=== PATIENT | male | born 1955 ===

== ENCOUNTER 2023-10-22 15:17 | Outpatient (REF) | payer OTHER, SELFPAY ==
[2023-10-22 15:30] LABS: Hemoglobin A1C 5.7 % (<5.7)
[2023-10-22 16:12] LABS: ALT 22 U/L (16-63); AST 20 U/L (15-37); Albumin 3.8 g/dL (3.4-5.0); Alkaline Phosphatase 57 U/L (46-116); Anion Gap 8.2 mmol/L (3-11); BUN 17 mg/dL (7-18); Bilirubin, Total 0.4 mg/dL (0.2-1.0); CO2 26.8 mmol/L (21.0-32.0); CREATININE 1.2 mg/dL (0.70-1.30); Calcium 8.6 mg/dL (8.5-10.1); Calculated LDL 155 mg/dL (<100); Chloride 106 mmol/L (98-107); Cholesterol 231 mg/dL (<200); Glucose 98 mg/dL (74-106); HDL Cholesterol 32 mg/dL (40-60); Potassium 4.4 mmol/L (3.5-5.1); Sodium 141 mmol/L (136-145); TSH 6.61 uIU/Ml (0.36-3.74); Total Protein 7.4 g/dL (6.4-8.2); Triglyceride 220 mg/dL (<150)
== END 2023-10-22 15:18 | disposition home or self-care (01) ==
LOC: NCHCN 15:17
PROVIDERS: Visit Provider Family Medicine
DX: R89.1 Abnormal level of hormones in specimens from other organs, systems and tissues (principal); Z12.5 Encounter for screening for malignant neoplasm of prostate; R73.03 Prediabetes; Z13.220 Encounter for screening for lipoid disorders
CPT/HCPCS: 80053; 80061; 84153; 83036; 84439; 84443

== ENCOUNTER 2024-04-13 08:40 | Outpatient (REF) | payer MEDICARE, SELFPAY ==
--- OUTSIDE RECORDS SUMMARY | 2024-04-13 08:45 | XMS_ITS | Encounter Summary ---
Author Organization [facility] Address [address] [place] [address] Care Team Providers Care Co Founder And Chief Strategy Officer Name Role Phone Cassidy Pablo MD Primary Care Provider [phone] Reason for Visit * Reason Onset Date Comments Appointment Related 04/23/2021 Elevated PSA 04/23/2021 8.3 Encounter Details Date Type Department Care Team (Late st Contact Info) Description 04/23/2021 Telephone [facility] Urology - [facility] [address], [place] [id number] Scar Osorio MD [address] [place] [address], [address] [place] [address] Appointment Related; Elevated PSA (8.3) Social History Tobacco Use Types Packs/Day Years Used Date Smoking Tobacco: Never Smokeless Tobacco: Former Chew Quit: 2002 Alcohol Use Standard Drinks/Week Comments No 0 (1 standard drink = 0.6 oz pur e alcohol) quit Interpersonal Safety Answer Date Record ed Physically Hurt Never 02/06/2020 Verbally Threaten Not on file 02/06/2020 Sex and Gender Information Value Date Recorded Sex Assigned at Not on file Gender Identity Male 08/27/2019 11:54 EST Sexual Orientation Not on file documented as of this encounter Functional Status Functional Status Response Date of Assess ment Because of a physical, menta l, or emotional condition, does this person have difficulty doing errands alone such as visiting a doctor's office or shopping? No 11/10/2017 Cognitive Status Response Date of Assessm ent Because of a physical, menta l, or emotional condition, does this person have serious difficulty concentrating, remembering, or making decisions? No 11/10/2017 documented as of this encounter Miscellaneous Notes * Telephone Encounter - Mareclla Adams - 04/23/2021 1240 EDT Spoke with pt, per Dr. Osorio, scheduled Telemed f/u to discuss rising PSA. * Telephone Encounter - Dat Kenyon - 04/23/2021 1132 EDT Patient called because he got his PSA tested and another provider advised he get an appt with Dr Osorio. Last seen by him Aug 2019. Please call back to schedule. documented in this encounter Plan of Treatment Upcoming Encounters Date Type Department Care Team (Late st Contact Info) Description 04/22/2024 8:10 EDT Appointment [facility] Endoscopy - [facility] [address] [place] [address] Zak Solorzano MD [address] [facility], [address] [place] [phone] documented as of this encounter Visit Diagnoses Not on filedocumented in this encounter Care Teams Co Founder And Chief Strategy Officer Relationship Specialty Start Date End Date Cassidy Pablo MD [address] [place] [address] [address] [place] [phone] PCP - General 12/21/14 05/28/21 documented as of this encounter
--- OUTSIDE RECORDS SUMMARY | 2024-04-13 08:45 | XMS_ITS | Encounter Summary ---
Author Organization [facility] Address [address] [place] [address] Care Team Providers Care Towel Distributor Name Role Phone Unknown, Provider Primary Care Provider Reason for Visit * Reason Onset Date Comments Medications Refill 2023 Encounter Details Date Type Department Care Team (Late st Contact Info) Description 2023 Refill [facility] Ophthalmology - [address] [address] Blake Doran MD [address] [place] [address], [address] [place] [address] Medications Refill Social History Tobacco Use Types Packs/Day Years [...] No 11/10/2017 documented as of this encounter Ordered Prescriptions Prescription Sig Dispensed Refills Start Date End Da te timolol (TIMOPTIC) 0.5 % ophthalmic solution Place 1 Drop into both eyes 2 times daily. 30 mL 3 2023 documented in this encounter Plan of Treatment Upcoming Encounters Date Type Department Care Team (Late st Contact Info) Description 04/22/2024 8:10 EDT Appointment [facility] Endoscopy - [address] [phone] Zak Solorzano MD [address] [facility], [address] [place] [address] documented as of this encounter Visit Diagnoses Not on filedocumented in this encounter Discontinued Medications Medication Sig Discontinue Reason Start Date End Da te timolol (TIMOPTIC) 0.5 % ophthalmic solution Place 1 Drop into both eyes 2 times daily. Reorder 04/08/2023 2023 documented as of this encounter Care Teams Towel Distributor Relationship Specialty Start Date End Date Unknown, Provider, PCP - General 02/27/23 documented as of this encounter
--- OUTSIDE RECORDS SUMMARY | 2024-04-13 08:45 | XMS_ITS | Encounter Summary ---
Author Organization [facility] Address [address] [place] [address] Care Team Providers Care Supervisor Opening And Picking Name Role Phone Cassidy Pablo MD Primary Care Provider [phone] Reason for Visit * Reason Onset Date Comments Appointment Related 04/30/2021 TRUS BX Encounter Details Date Type Department Care Team (Late st Contact Info) Description 04/30/[address] [facility] Urology - [address] [phone] Scar Osorio MD [address] [facility], [address] [place] [address] Appointment Related (TRUS BX) Social History Tobacco Use Types Packs/Day Years [...] encounter Miscellaneous Notes * Telephone Encounter - Marcella Adams - 04/30/2021 1020 EDT Left message for pt that Dr. Osorio has ordered a TRUS BX and it's scheduled for 06/13 at 9:30 am, Telemed BXR on 06/25 @ 2pm. Mailed instructions to pt's home. documented in this encounter Plan of Treatment Upcoming Encounters Date Type Department Care Team (Late st Contact Info) Description 04/22/2024 8:10 EDT Appointment [facility] Endoscopy - [address] [phone] Zak Solorzano MD [address] [facility], [address] [place] [address] documented as of this encounter Visit Diagnoses Not on filedocumented in this encounter Care Teams Supervisor Opening And Picking Relationship Specialty Start Date End Date Cassidy Pablo MD [address] [place] [address] [address] [place] [phone] PCP - General 12/21/14 05/28/21 documented as of this encounter
--- OUTSIDE RECORDS SUMMARY | 2024-04-13 08:45 | XMS_ITS | Continuity of Care Document ---
Author Organization [facility] Address [address] [place] [address] Phone Care Team Providers Care Special Education Paraeducator Name Role Phone Unavailable Unavailable Unavailable Allergies, Adverse Reactions, Alerts Substance Reaction Status Criticality Uvtvmgo-WYY-RsV Reductase Inhibitors musculoskeletal p ain Active No Information Sulfa (Sulfonamide Antibiotics) osmin salcedo syndro me Active No Information Medications Medication Instructions Dosage Effective Dates (start - stop) Status Comments lorazepam 0.5 mg tablet Take one tab only as needed at night. Try not to take it every day. Use sporadically - Active sildenafil 50 mg tablet take 1 tablet by oral route every day as needed approximately 1 hour before sexual activity 50 MG - Active hydroxyzine HCl 10 mg tablet take 1 - 2 by Oral route every day as needed for insomnia 1-2 - Active Betimol 0.25 % eye drops instill 1 drop by ophthalmic route 2 times every day into affected eye(s) 1.00 drop - Active Procedures Procedure Date Immuniz Admin; 1/combo Vacc/to 22 Zoster SHINGRIX Offic/outpt E&m Estab Low-mod 2 Patient Intake Completed MTP-Adp-Fhsd <1 Year Bitewings-Four Films Periodic Oral Examination Caries Risk-Moderate Recare Needs Only Prophylaxis Adult Treatment Plan Completed EDR Documentation Approval Telemed OFFICE/OUTPATIENT VISIT, EST 992 12 Patient Intake Completed FJI-Ljd-Zrso <1 Year Intraoral Periapical-First Film 021 Periapical Radiograph-No Charge 021 Bitewing Radiograph-No Charge Limited Oral Evaluation-Problem Focused Urgent Care Routine Venipuncture Thyroid Stim Hormone Lipid Panel URINALYSIS, AUTO, W/O SCOPE Offic/outpt E&m Estab 5 Min Preven Meds E&m Estab Pt; 40-6 Routine Venipuncture Comprehen Metabolic Panel Complete Cbc, Automated Thyroid Stim Hormone Psa, total screening Telemed OFFICE/OUTPATIENT VISIT, EST 992 12 Patient Intake Completed HTW-Cvj-Aulo <1 Year Perio Charting Prophylaxis Adult Treatment Plan Completed Patient Intake Completed [place] Delivery Treatment Plan Completed Pre-Cementation Bitewing Radiograph-No C harge EDR Documentation Approval Patient Intake Completed [place]-Porcelain/Ceramic Core Build Up Including Any Pins 2019 Treatment Plan In Progress Final Impression(s) For [place]/Bridge May Treatment Plan In Progress EDR Documentation Approval Patient Intake Completed Limited Oral Evaluation-Problem Focused Urgent Care Intraoral Periapical-First Film 020 Bitewing Radiograph-No Charge 0 EDR Documentation Approval Patient Intake Completed Bitewings-Four Films Periodic Oral Examination Recare Needs Only EDR Documentation Approval Offic/outpt E&m Estab Low-mod 0 Duplicate Encounter URINALYSIS, AUTO, W/O SCOPE Cult Bacterial Urin; Dariel [place] 20 Routine Venipuncture Prostate Spec Antig; Tot Routine Venipuncture Complete Cbc, Automated Thyroid Stim Hormone Psa, total screening Offic/outpt E&m Estab Low-mod 9 Basic Metabolic Panel [place] Delivery Treatment Plan Completed Patient Intake Completed EDR Documentation Approval Patient Intake Completed Re-Take Impression For A [place]/Bridge Au Treatment Plan In Progress EDR Documentation Approval Patient Intake Completed Final Impression(s) For [place]/Bridge Jan Treatment Plan In Progress Resin-Based Composite - 3 Surfaces, Post erior Treatment Plan In Progress EDR Documentation Approval [place]-Porcelain/Ceramic Patient Intake Completed Prophylaxis Adult Treatment Plan In Progress Perio Charting Patient Intake Completed Full Mouth Series Of Radiographs 2017 Comprehensive Oral Evaluation 8 Caries Risk-Low Excluded From Sealant Measure 8 Treatment Plan Initiated EDR Documentation Approval Patient Intake Completed Intraoral Periapical-First Film -2 018 Limited Oral Evaluation-Problem Focused Urgent Care Resin-Based Composite Three Surfaces, An terior Urgent Care EDR Documentation Approval Preven Meds E&m Estab Pt; 40-6 18 Destrct Premalig Lesion Immuniz Admin; 1/combo Vacc/to 18 Psa, total screening Routine Venipuncture Glu; Dariel Lipid Panel Zoster State Supplied Noninvas Oximetry-o2 Sat; 1 De 17 Offic/outpt E&m Estab Low-mod 7 Preven Meds E&m Estab Pt; 40-6 16 Creatinine; Bld Lipid Panel Urea Nitro; Dariel Glu; Dariel Drug Screen, Chromatographic Offic/outpt E&m Estab Low-mod 6 Offic/outpt E&m New Mod Sever 5 Immuniz Admin; 1/combo Vacc/to 15 TDAP VACCINE >7 IM Advance Directives Directive Yes / No Effective Date File Name No Information Encounters Encounter Description Practice Location Reason(s) For Visit Diagnoses Date Provider Providers Copied on Encounter [address], [id number], tel:[phone] [facility] No Information 4 [address], [id number], tel:[phone] [facility] No Information 3 Vamsi Rod. [address] [place] [address], [id number], . tel:[phone] Offic/outpt E&m Estab Low-mod [address], [id number], tel:[phone] [facility] covid (chief complaint)vac cines (chief complaint)inf ormation (chief complaint) Male erectile dysfunction, unspecifiedEn counter for immunization 2 Vamsi Rod. [address] [place] [address], [facility], . tel:[phone] [facility] , [address] [place] [address], [id number], tel:[phone] [facility] No Information 2 Analisa Melgar. [address] [place] [address], [address] [place] [address], . tel:[phone], [address] [place] [address], tel:[phone] [facility] No Information 2 Vamsi Rod. [address] [place] [address], [facility], . tel:[phone], [address] [place] [address], tel:[phone] [facility] telemedicine (chief complaint)anx iety (chief complaint) Counseling, unspecifiedSi tuational anxiety 2 Vamsi Rod. [address] [place] [address], [facility], . tel:[phone], [address] [place] [address], tel:[phone] [facility] No Information 1 Vamsi Rod. [address] [place] [address], [facility], . tel:[phone] [place] [address], [address] [place] [address], tel:[phone] [facility] No Information 1 Albania Lozano. [address] [place] [address], [address] [place] [address], . tel:[phone], [address] [place] [address], tel:[phone] [facility] No Information 1 No Information Offic/outpt E&m Estab [address], [id number], tel:[phone] [facility] Nurse visit (chief complaint) Dysuria 1 Vamsi Rod. [address] [place] [address], [facility], . tel:[phone], [address] [place] [address], tel:[phone] [facility] No Information 1 Vamsi Rod. [address] [place] [address], [facility], [place]. tel:[phone] Preven Meds E&m Estab Pt; 40-[address], [address] [place] [address], tel:[phone] [facility] preventive exam (chief complaint) Encounter for general adult medical examination without abnormal findingsThyro id diseaseElevat ed PSA 1 Vamsi Rod. [address] [place] [address], [facility], . tel:[phone], [address] [place] [address], tel:[phone] [facility] No Information 1 No Information [address], [address] [place] [address], tel:[phone] [facility] Screening for hyperlipidemi aScreening, anemia, deficiency, ironProstate cancer screeningSing le functional kidney 1 Vamsi Rod. [address] [place] [address], [facility], [place]. tel:[phone], [address] [place] [address], tel:[phone] [facility] Follow Up of Anxiety (chief complaint) Situational anxietyCounse ling, unspecified 1 Vamsi Rod. [address] [place] [address], [facility], [place]. tel:[phone] [facility] , [address] [place] [address], [address] [place] [address], tel:[phone] [facility] No Information 1 Hollie Sheldon. [address] [place] [address], [id number], . tel:[phone], [address] [place] [address], tel:[phone] [facility] No Information 0 Albania Lozano. [address] [place] [address], [id number], [place]. tel:[phone], [address] [place] [address], tel:[phone] [facility] No Information 0 Albania Lozano. [address] [place] [address], [address] [place] [address], [place]. tel:[phone], [address] [place] [address], tel:[phone] [facility] No Information 0 Paresh Bryant. [address] [place] [address], [id number], [place]. tel:[phone], [address] [place] [address], tel:[phone] [facility] No Information 0 Albania Lozano. [address] [place] [address], [address] [place] [address], [place]. tel:[phone] Offic/outpt E&m Estab Low-mod [address], [id number], tel:[phone] [facility] Establish with PCP (chief complaint)Ski n lesion (chief complaint) Benign skin lesion of cheekScreenin g for hyperlipidemi aThyroid disorder screeningScre ening, anemia, deficiency, ironSide effect of medication 0 Vamsi Rod. [address] [place] [address], [id number], [place]. tel:[phone], [id number], [place] tel:[phone] [facility] No Information [address] [facility] , [address] [place] [address], [id number], tel:[phone] [facility] No Information [address] [facility] , [address] [place] [address], [id number], [place] tel:[phone] [facility] No Information [address] [facility] , [address] [place] [address], [id number], tel:[phone] [facility] No Information 9 No Information Offic/outpt E&m Estab Low-mod [address], [id number], [place] tel:[phone] [facility] Palpitations (chief complaint)Sin us symptoms (acute) (chief complaint)Eye problems (chief complaint) PalpitationsF amily history of glaucomaAcqui red absence of kidneyFamily history of prostate cancerHyperli pidemia, unspecified hyperlipidemi a typeAbnormal thyroid blood test 9 Samy Benjamin. [address] [place] [address], [id number], [place]. tel:[phone], [id number], [place] tel:[phone] [facility] No Information 8 Dangelo Wells. [address] [place] [address], [id number], [place]. tel:[phone], [id number], [place] tel:[phone] [facility] No Information 8 Dangelo Wells. [address] [place] [address], [facility], . tel:[phone], [address] [place] [address], tel:[phone] [facility] No Information 8 Albania Lozano. [address] [place] [address], [address] [place] [address], . tel:[phone], [address] [place] [address], tel:[phone] [facility] No Information 8 Bib Peyton. [address] [place] [address], [address] [place] [address], . tel:[phone], [address] [place] [address], tel:[phone] [facility] No Information 8 Albania Lozano. [address] [place] [address], [address] [place] [address], . tel:[phone], [address] [place] [address], tel:[phone] [facility] No Information 8 Albania Lozano. [address] [place] [address], [address] [place] [address], . tel:[phone] Preven Meds E&m Estab Pt; 40-[address], [address] [place] [address], tel:[phone] [facility] preventive exam (chief complaint)ski n lesion (chief complaint)ins omnia (chief complaint)Mack tigo (chief complaint) Encntr for general adult medical exam w/o abnormal findingsFamil y history of prostate cancerActinic keratosis 8 Samy Benjamin. [address] [place] [address], [facility], . tel:[phone] Offic/outpt E&m [facility] , [address] [place] [address], [id number], tel:[phone] [facility] Chest pain (chief complaint) Chest painPalpitati ons 7 No Information Preven Meds E&m Estab Pt; 40-6 [facility] , [address] [place] [address], [id number], tel:[phone] [facility] preventive exam (chief complaint) Encntr for general adult medical exam w/o abnormal findingsHyper lipidemiaEnco unter for screening for diabetes mellitusAcqui red absence of kidneyEncount er for screening for infections with a predominantly sexual mode of transmissionA nxiety disorder, unspecified 6 Samy Benjamin. [address] [place] [address], [facility], . tel:[phone] Offic[facility]outpt E[facility]m [facility] , [address] [place] [address], [address] [place] [address], tel:[phone] [facility] Anxiety (chief complaint)Ere ctile Dysfunction (chief complaint) Encounter for therapeutic drug level monitoringAnx iety disorder, unspecifiedIn somniaMale erectile dysfunction, unspecified 6 Danika Monreal. [address] [place] [address], [facility], . tel:[phone] Offic/outpt E&m [facility] , [address] [place] [address], [id number], tel:[phone] [facility] Establish Care (chief complaint)Ear ache (chief complaint) Otalgia 5 No Information Family History Family Member Type Diagnosis Age At Onset Paternal grandfather Problem (finding) prostate cancer (Cause Of ) 72 Immunizations Vaccine Date Status Comments SHINGRIX administered Source: New Imm unization Record Pfizer Covid-19 administered Source: Othe r Provider Pfizer Covid-19 administered Source: Othe r Provider Influenza, injectable, quadrivalent, preservative free, split virus, 0.5 mL dosage, Fluarix Quad administered Note: [facility] ; Source: Other Provider Zoster administered Source: New Imm unization Record Tdap administered Source: [facility] Record Payers Payer name Insurance type Covered libertarian ID Authoriza tion(s) [facility] [id number] [facility] BCBS Standard Plan BL [id number] [facility] BCBS Standard Plan BL [id number] BCBS BL [id number] Social History Type Description Quantity Date Captured Comments Sex Male Smoking Status No Information Sexual Orientation Straight or heterosexual Gender Identity Male Chief Complaint And Reason For Visit No Information Reason For Referral Reason For Referral No Information Plan Of Treatment Date Type Action Status Goal FOBT. Due on due Goal BMI counseling d ocumented in Health Promotion Plan. Due on due Goal Depression screening. Due on due Goal ASCVD 10 year risk. Due on due Goal Annual PE. Due on due Goal HEPATITIS C AB TEST due Goal Zoster vaccine (1st) due Goal HIV-1 AG W/HIV-1 & HIV-2 AB due Goal Zoster vaccine (2nd) due Goal PCV13. Due on du e Goal TSH. Due on due Goal Colonoscopy. Due on 024 due Goal INFLUENZA. Due on due Goal Diabetes Screening. Due on due Goal Chest CT WITHOUT Contrast. Due on due Goal Lipid Panel. Due on 026 due Goal Prostate Spec An tig; Tot. Due on due Goal Colonoscopy. Due on due Goal Annual PE. Due on 3 due Goal Depression screening. Due on due Goal Colorectal cance r screen, stool DNA QuARTS with hemoglobin KAYDEN. Due on due Goal HEPATITIS C AB TEST due Goal INFLUENZA. Due on [address] WITHOUT Contrast. Due on due Goal HIV-1 AG W/HIV-1 & HIV-2 AB due Goal Zoster vaccine (2nd) due Goal PSA. Due on due Goal Zoster vaccine () due Goal Diabetes Screening. Due on due Goal BMI counseling d ocumented in Health Promotion Plan. Due on due Goal TSH. Due on due Goal ThinPrep Pap w/ HPV. Due on due Goal Lipid Panel. Due on due Goal Colonoscopy. Due on due Goal Depression screening. Due on due Goal Zoster vaccine (1st) due Goal BMI counseling d ocumented in Health Promotion Plan. Due on due Goal Diabetes Screening. Due on due Goal INFLUENZA. Due on 0 due Goal HEPATITIS C AB TEST due Goal Prostate Spec An tig; Tot. Due on due Goal HIV-1 AG W/HIV-1 & HIV-2 AB due Goal Zoster vaccine (2nd). Due on due Goal Chest CT WITHOUT Contrast. Due on due Goal Colorectal cance r screen, stool DNA QuARTS with hemoglobin KAYDEN. Due on due Goal PSA. Due on due Goal Annual PE. Due on 3 due Goal TSH. Due on due Goal ThinPrep Pap w/ HPV. Due on due Goal INFLUENZA. Due on 0 due Goal Colorectal cance r screen, stool DNA QuARTS with hemoglobin KAYDEN. Due on due Goal Zoster vaccine (). Due on due Goal Depression screening. Due on due Goal Annual PE. Due on [address] WITHOUT Contrast. Due on due Goal Colonoscopy. Due on 024 due Goal PSA. Due on due Goal Diabetes Screening. Due on due Goal HIV-1 AG W/HIV-1 & HIV-2 AB due Goal TSH. Due on due Goal ThinPrep Pap w/ HPV. Due on due Goal Prostate Spec An tig; Tot. Due on due Goal BMI counseling d ocumented in Health Promotion Plan. Due on due Goal Zoster vaccine (1st) due Goal HEPATITIS C AB TEST due Goal Lipid Panel. Due on 026 due Goal Lipid Panel. Due on 023 due Goal Annual PE. Due on 3 due Goal Diabetes Screening. Due on due Goal Chest CT WITHOUT Contrast. Due on due Goal BMI counseling d ocumented in Health Promotion Plan. Due on due Goal Colorectal cance r screen, stool DNA QuARTS with hemoglobin KAYDEN. Due on due Goal Zoster vaccine (2nd). Due on due Goal Zoster vaccine () due Goal HIV-1 AG W/HIV-1 & HIV-2 AB due Goal HEPATITIS C AB TEST due Goal TSH. Due on due Goal ThinPrep Pap w/ HPV. Due on due Goal Depression screening. Due on due Goal PSA. Due on due Goal Colonoscopy. Due on 024 due Goal INFLUENZA. Due on 0 due Goal Prostate Spec An tig; Tot. Due on due Goal Lipid Panel. Due on 023 due Goal HIV-1 AG W/HIV-1 & HIV-2 AB due Goal Zoster vaccine (1st) due Goal BMI counseling d ocumented in Health Promotion Plan. Due on due Goal Depression screening. Due on due Goal Prostate Spec An tig; Tot. Due on due Goal Diabetes Screening. Due on due Goal Colorectal cance r screen, stool DNA QuARTS with hemoglobin KAYDEN. Due on due Goal Zoster vaccine (2nd). Due on due Goal Annual PE. Due on 3 due Goal PSA. Due on due Goal Chest CT WITHOUT Contrast. Due on due Goal Colonoscopy. Due on 024 due Goal HEPATITIS C AB TEST due Goal TSH. Due on due Goal ThinPrep Pap w/ HPV. Due on due Goal INFLUENZA. Due on 0 due Goal HIV-1 AG W/HIV-1 & HIV-2 AB due Goal ThinPrep Pap w/ HPV. Due on due Goal Lipid Panel. Due on 023 due Goal Diabetes Screening. Due on due Goal Zoster vaccine (). Due on due Goal INFLUENZA. Due on 0 due Goal Colorectal cance r screen, stool DNA QuARTS with hemoglobin KAYDEN. Due on due Goal Depression screening. Due on due Goal Colonoscopy. Due on 024 due Goal Prostate Spec An tig; Tot. Due on due Goal HEPATITIS C AB TEST due Goal PSA. Due on due Goal Zoster vaccine (1st) due Goal TSH. Due on due Goal Annual PE. Due on [address] WITHOUT Contrast. Due on due Goal BMI counseling d ocumented in Health Promotion Plan. Due on due Goal PSA. Due on due Goal Colonoscopy. Due on 024 due Goal INFLUENZA. Due on 0 due Goal TSH. Due on due Goal ThinPrep Pap w/ HPV. Due on due Goal Zoster vaccine (2nd). Due on due Goal Colorectal cance r screen, stool DNA QuARTS with hemoglobin KAYDEN. Due on due Goal Diabetes Screening. Due on due Goal Depression screening. Due on due Goal Chest CT WITHOUT Contrast. Due on due Goal Prostate Spec An tig; Tot. Due on due Goal HIV-1 AG W/HIV-1 & HIV-2 AB due Goal Annual PE. Due on 1 due Goal HEPATITIS C AB TEST due Goal BMI counseling d ocumented in Health Promotion Plan. Due on due Goal Zoster vaccine (1st) due Goal Lipid Panel. Due on 023 due Goal ThinPrep Pap w/ HPV. Due on due Goal INFLUENZA. Due on 0 due Goal Colonoscopy. Due on 024 due Goal HIV-1 AG W/HIV-1 & HIV-2 AB due Goal Depression screening. Due on due Goal Annual PE. Due on 1 due Goal Colorectal cance r screen, stool DNA QuARTS with hemoglobin KAYDEN. Due on due Goal Chest CT WITHOUT Contrast. Due on due Goal Zoster vaccine (2nd). Due on due Goal BMI counseling d ocumented in Health Promotion Plan. Due on due Goal Diabetes Screening. Due on due Goal HEPATITIS C AB TEST due Goal Zoster vaccine (1st) due Goal BMI counseling d ocumented in Health Promotion Plan. Due on due Goal HEPATITIS C AB TEST due Goal Chest CT WITHOUT Contrast. Due on due Goal Depression screening. Due on due Goal Zoster vaccine (). Due on due Goal HIV-1 AG W/HIV-1 & HIV-2 AB due Goal Prostate Spec An tig; Tot. Due on due Goal Zoster vaccine () due Goal Colonoscopy. Due on 024 due Goal Diabetes Screening. Due on due Goal TSH. Due on due Goal ThinPrep Pap w/ HPV. Due on due Goal Lipid Panel. Due on 023 due Goal Colorectal cance r screen, stool DNA QuARTS with hemoglobin KAYDEN. Due on due Goal PSA. Due on due Goal Annual PE. Due on 1 due Goal TSH. Due on due Goal Chest CT WITHOUT Contrast. Due on due Goal BMI counseling d ocumented in Health Promotion Plan. Due on due Goal HEPATITIS C AB TEST due Goal Diabetes Screening. Due on due Goal Colonoscopy. Due on due Goal Prostate Spec An tig; Tot. Due on due Goal Annual PE. Due on 0 due Goal HIV-1 AG W/HIV-1 & HIV-2 AB due Goal PSA. Due on due Goal ThinPrep Pap w/ HPV. Due on due Goal Lipid Panel. Due on due Goal Colorectal cance r screen, stool DNA QuARTS with hemoglobin KAYDEN. Due on due Goal Depression screening. Due on due Goal Prostate Spec An tig; Tot. Due on due Goal Annual PE. Due on 0 due Goal Colonoscopy. Due on due Goal HIV-1 AG W/HIV-1 & HIV-2 AB due Goal Depression screening. Due on due Goal CT low dose, roxie g cancer screen. Due on due Goal Chest CT WITHOUT Contrast. Due on due Goal ThinPrep Pap w/ HPV. Due on due Goal Diabetes Screening. Due on due Goal PSA. Due on due Goal BMI counseling d ocumented in Health Promotion Plan. Due on due Goal Colorectal cance r screen, stool DNA QuARTS with hemoglobin KAYDEN. Due on due Goal Lipid Panel. Due on due Goal HEPATITIS C AB TEST due Goal Annual PE. Due on 0 due Goal Glu; Dariel. Due on 2 due Goal HEPATITIS C AB TEST due Goal HIV-1 AG W/HIV-1 & HIV-2 AB. Due on due Goal Chlamydia/GC Amp lification. Due on due Goal Lipid Panel. Due on 023 due Goal GLYCOSYLATED HEM OGLOBIN TEST. Due on due Goal Colonoscopy,. Due on 2018 due Goal Influenza virus vaccine,trivalent, split virus, for use in individuals 3 years of age and above,. Due on due Goal Influenza virus vaccine, quadrivalent, split virus, preservative free, when administered to individu. Due on due Goal Chest CT WITHOUT Contrast. Due on due Goal Chlamydia/GC Amp lification. Due on due Goal HIV-1 AG W/HIV-1 & HIV-2 AB. Due on due Goal HEPATITIS C AB TEST due Goal Influenza virus vaccine,trivalent, split virus, for use in individuals 3 years of age and above,. Due on due Goal Influenza virus vaccine, trivalent, split virus, preservative free. Due on due Goal Influenza virus vaccine, quadrivalent, split virus, preservative free, when administered to individu. Due on due Goal Annual PE. Due on 0 due Goal HEPATITIS C AB TEST. Due on due Goal GLYCOSYLATED HEM OGLOBIN TEST. Due on due Goal HIV-1 AG W/HIV-1 & HIV-2 AB. Due on due Goal Influenza virus vaccine, quadrivalent, split virus, preservative free, when administered to individu. Due on due Goal Chest CT WITHOUT Contrast. Due on due Goal Chlamydia/GC Amp lification. Due on due Goal Annual PE. Due on 7 due Goal Influenza virus vaccine,trivalent, split virus, for use in individuals 3 years of age and above,. Due on due Referral Ordered: Holter Monitor Appointment date/timeframe: 09/17/2018 ordered Referral Ordered: referred to Gastroenterology (related to [facility] for general adult medical exam w/o abnormal findings) ordered Future Order: Lab Order PSA Screen ([id number]) , Sent on: Sent Future Order: Lab Order Urine dr ug screen (200), Sent on: Sent Future Order: Lab Order TSH ([id number]), Sched uled for: Ordered Future Order: Lab Order Lipid pa keira, fasting (100), Scheduled for: Ordered Future Order: Lab Order PSA ([id number]), Sched uled for: Ordered History Of Present Illness Encounter Date Complaint History Of Prese nt Illness information (comments) Comments: pT is here after he called requesting refill for viagra. He was told that he needs to be seen to check his bp since he has not been here for about 6 months. Pt is feeling well. Denies any chest pain, headache or sob. No h/o covidNo h/o HTN. information pt received a ph one call stating that he is required to come into the facility twice a year, pt would not tell me who called him or for what reason but is a little confused on why he needs to be seen.Latin Teacher explain it is possible about the controlled substance and he declined it is for that reason covid pt had covid anila k in October and is wondering if he is required to get the second booster vaccines pt would like to know if he is up to date on his vaccines anxiety (comments) Comments: Pt states that he did not request lorazepam this month. No refills. he thinks he has in the computer. 56 tabs right now. Pt is not asking the medication. Pt did not request the medication. He was seen by eye doctor ad he has glaucoma. Using He is not tkaing the med everyday but he got in the mail another RX. He has home delivery. anxiety There is continu ation of initial symptoms. telemedicine THIS PATIENT AND /OR GUARDIAN EXPRESSED INFORMED CONSENT TO THIS CODING TEAM LEAD, PRIOR TO INITIATING THIS TELEMEDICINE ENCOUNTER.THE LIMITATIONS OF TELEMEDICINE MODALITY, AND LIKELY BENEFITS OF IN-PERSON MEDICAL APPOINTMENT VS TELEMEDICINE APPOINTMENTS WERE DISCUSSED WITH PATIENT AND/OR GUARDIANTHE PATIENT AND/OR GUARDIAN EXPRESS UNDERSTANDING OF THE ABOVE, AND ARE DESIROUS OF THIS TELEMEDICINE APPOINTMENT TODAY. DOCUMENTATION INCLUDED ABOVE PER [place] BILL S.50. Nurse visit Pt c/o dysuria. No blood in the urine. Would like to do UA. preventive exam Men's preventive visit. Patient is on a balanced diet. Marital status: . Concern(s)/Requests Detail: Colonoscopy 5 yrs ago. Relevant history is negative for tobacco use, passive smoke exposure. The client is a former alcohol user. preventive exam (comments) Comme nts: Pt denies alcohol. No smoking tobacco. Pt has been in remission for many years.He works as a contractor.Stress right now. Mother living with him start with dementia. Problems with sleep.requesting refills on viagra and lorazepam.Denies any acute issues.denies urinary symptoms. Complete covid-19 vaccine. Follow Up of Anxiety (comments) Patient got Covid-19 vaccine. His mother is 87 y old. She become increasingly more forgetfull and her dementia is getting worst. He has been trying to excercises more and meditation.Reading. Not sleeping very well. He has been reading.He used to be on lorazepam in the past and this work for his anxiety. Mom is not leaving with him. He is Alcohol sober for 26 years. 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 He tried Atarax and this did not work for him feeling droggy with this medication.Feeling worry about the next day.He is just thinking too much at night about the plan for his mom. This is a new change for his mom. Not thinking right. Follow Up of Anxiety This is a f ollow up visit. There is worsening of previously reported symptoms. The client presents with anxious/fearful thoughts, depressed mood, difficulty staying asleep, excessive worry and restlessness but denies thoughts of or suicide. Additional information: Increased anxiety, pt states his mom is showing more signs of dementia. Pt is interested in possibly starting medication to help w anxiety. Pt is recovering alcoholic. Skin lesion The patient pres ents with Skin lesion that began 6 months ago. Area(s) of concern include the R cheek. The lesion(s) of concern is described as monae color. Risk factors do not include family history of skin cancer or greater than 5 sunburns. The patient does not report any relieving factors. Associated symptoms include lesion discharge and scaly skin. The patient reports no recurrent bleeding lesions. Additional information: Pt reports sunscreen use.The Problem has not changed. Establish with PCP (comments) Pt is not taking thyroid medication. follows urology for BPH.previous PCP: yola Poon.acute concerns today: skin issuesworks in construction. Establish with PCP Pt presents t yas to establish care with new PCP.-Pt interested in liver function tests today, only has one kidney. Pt takes hydrozaxine but he is not taking this medicaiton any more. He used to take this med to help him to sleep.fam history: maternal grandmother with heart disease. father with DMno cancer in the family.pt sleeps okay pt states that atarax cause drowsiness. Not taking this meds Sinus symptoms (acute) Pertinent /initial symptoms include sinus congestion. Associated symptoms include postnasal drainage. Additional information: Pt was taking Sudefed script regularly w/ help but doesn't like SE of nocturia. Wondering if another med can take?. Eye problems Pertinent negati ves include vomiting. Additional information: FH of glaucoma. Has not been to an eye doctor. Wondering about testing for this. Sinus symptoms (acute) (comments ) peeing more on sudafed Palpitations (comments) has had occasionally with tea/caffeine before but not this muchthis time around there may be chocolate involvedall the timehe felt that the doc he saw at the walk in didn't take it seriouslynot 'buying it' that because he has anxiety he notices it more notices more when sitting quietlydoesn't appreciate it as much when active - assumes he has them but he's not noticinghasn't taken lorazepam since thanksgivinghad thyroid testing and was slightly abnormal Palpitations The patient pres ents with a complaint of Palpitations. The problem occurs constantly. The patient denies chest pain, dyspnea, nausea and vomiting. Additional information: Seen at [facility] end of May, diagnosed w/ PVC. Pt thinks stress related - wants to discuss Lorazepam script. preventive exam (comments) has i nsomnia - had head peñaloza with trazodonewould rather take lorazepam skin lesion Associated sympt oms include erythema, pigment change and scaly skin. The patient reports no pruritus, lesion discharge or painful lesions. Additional information: Pt reports growth on L tricep. Has had it forever. Size 2 cm. The lesion occurs continuously. insomnia The patient pres ents with sleep problems. The symptoms are unchanged. These complaints are episodic with 3 episodes per month. Relevant history: a BMI of 30.24. The patient is experiencing irritability. The patient denies depression, difficulty initiating sleep, difficulty maintaining sleep, headache upon awakening, weight gain or wheezing.Additional information: Pt does not like trazadone. States he gets lightheaded. Makes him feel groggy in morning. Vertigo Onset was 7 omid hs ago. The problem is improving. It occurs intermittently. The patient describes it as (an) spinning. Relieving factors include sudafed. Associated symptoms include ear drainage and vertigo. Pertinent negatives include chest pain, fever, headache, hearing loss, nausea, palpitations, seizures and vomiting. Additional information: Has had 4 bouts of vertigo, dizziness, vomiting since summer. Thinkas mucus was messing with inner ear. Tried sudafed 6 weeks ago, has helped. preventive exam Men's preventive visit. Patient is on a balanced diet. Marital status: . Concern(s)/Requests Detail: Pt sexually active and interested in STI screen. Pt states he had a colonoscopy in 2008. Pt doing well overall. Chest pain The patient pres ents with a complaint of chest discomfort. The symptoms began 2 weeks ago and began suddenly. The problem occurs constantly. The patient rates the severity of the chest pain as 2/10 and the symptoms have worsened. The pain is in the to right of sternum. The pain does not radiate to the back, flank, or groin. The symptoms are aggravated by position (turning head to right). The patient denies any dyspnea on exertion, lightheadedness or diaphoresis. Started out intermittently, now feels constantly. Non-smoker. No cardiac hx. Chest pain (comments) -61yo M wi th h/o HLD p/w right-sided chest pain x2wk w/o preceding injury-Initially intermittent, now constant-Reproducible with palpation or turning head to the right-No relation to exertion or deep inspiration-No associated dizziness/diaphoresis/sob/n/v/edema- Works as patricio -Also notes intermitentt palpatations since age 20. Previously told it was nothing serious, would worsen with caffeine-Nonsmoker. No h/o DM or HTN. No FH CAD-No personal or family h/o clots. No recent immobilization preventive exam Men's preventive visit. Marital status: . Concern(s)/Requests Detail: had colonoscopy at 52 age Erectile Dysfunction (comments) Present for many years taking sildenafil 20mg x 3 tabs before sex with good effect. No side effects. Deneis chest pain, lighthededness, dizziness, visual changes. Erectile Dysfunction Anxiety (comments) Has taken for many years until he recently cut down. Now more worried about changing careers leading to poor sleep. Has not taken other medications for anxiety. Treats anxiety with exercise, daily medication, mindfulness.No prior daily medications for anxiety. Worsened recently in setting of thinking about career change following move to [place]. No past SE from lorazepam. Chart review does not show any concerning past behaviors. Anxiety This is an initi al visit. The patient presents with anxious/fearful thoughts, difficulty staying asleep, excessive worry, loss of appetite and racing thoughts but denies thoughts of or suicide. The Anxiety is aggravated by conflict or stress. The patient's relieving factors are exercise and a good response to medication (lorazepam). Additional information: Pt has been on lorazepam 0.5 mg once daily for about 10 years. Pt is new to [place], moved from [place], pt interested in career change to addiction counseling. Pt would like refills of lorazepam and sildenafil. Earache Onset: 6 months ago. The patient states the earache is in both ears. It occurs constantly. The problem is worse. Symptom is aggravated by loud sounds. Denies relieving factors. Associated symptoms include congestion (nasal) and fullness in ears. Pertinent negatives include bleeding from ear(s), cough, ear popping, ear pressure, hearing deficit, mastoid bone tenderness, redness/swelling outer ear and ringing in ears. Additional information: Bad cold in June 2014 and severe sinus congestions. Fullness in ears fluctuates. Establish Care Patient is here to establish care. Previously seen by [facility], Saeed Graham MD.PMH: alcoholism (18 years sober), anxiety.PSH: left kidney removed, 1999; achilles tendon surgery, 2012; right meniscus removal, 2006; tonsillectomy, childhood.Specialists: noneMedication(s): Lorazepam 0.5mg, take one tablet 2 times a day for anxiety. -- pt requesting refill. Family history: Father: obese, diabetes.Last Tetanus: unsure, per pt may have been within the last 10 years. Works as a contractor. Pt wants to be UTD.Last Colonoscopy: age 52, repeat 10 years, per pt. Establish Care (comments) -[facility] for refill of ativan 0.5mg 1-2 QD #60 filled 06/01/14. Per pt usually takes 1 QD Earache (comments) -Onset feelin g of R TM reverberation in response to loud noises since bad head cold in 06/2014-Describes as intermittent, uncomfortable-Occasionally hears self talk in R ear-Endorses baseline tinnitus - no acute worsening-No ARTIS-No f/c -No hx TMJ pain-No vertigo-No hearing deficit-Had similar presentation in past, improved with course of decongestant Functional Status Date Functional Assessmen t No Information Instructions Date Instruction Additional Infor shay BMI counseling docum ented in Health Promotion Plan you can go to any op tometrist to get a good screening and get screened for glaucoma Related to Family history of glaucoma Call office with any changes in nature of palpitationsED with associated dizziness, chest pain, shortness of breath, nausea Related to Palpitations Your chest pain seem s to be musculoskeletal in natureConsider tylenol or ibuprofen as neededHeat/ice to areaGentle stretchingED with any new or different chest pain, shortness of breath, symptomatic palpitations Related to Chest pain -- I would recommend thinking about alternatives to lorazepam. Today we mentioned trazodone, hydroxyzine, and buspirone for as needed medications. As we dioscussed, there are many other options for daily medications to attempt to better control anxiety. Related to Anxiety disorder, unspecified Sudafed two tablets every 6 hours as needed for congestionPlenty of fluidsYou have been given a referral to ear nose and throat The office will call to schedule.If you have not heard from us in 1 week please call the office. If you symptoms resolve, you may cancel the appointment Call office sooner with any worsening symptoms, hearing loss Related to Otalgia Assessments Type Assessment Date No Information Patient Care Teams Name Effective Dates (start - stop) Status Members No Information
--- OUTSIDE RECORDS SUMMARY | 2024-04-13 08:45 | XMS_ITS | Encounter Summary ---
Author Organization [facility] Address [address] [place] [address] Care Team Providers Care Electrical Prospecting Engineer Name Role Phone Viola Dave MD Primary Care Provider Reason for Visit * Reason Comments Follow-up Encounter Details Date Type Department Care Team (Late st Contact Info) Description 06/21/2021 12:30 EST Telemedicine [facility] Urology - [facility] [address] [place], [place] [phone] Scar Osorio MD [address] [facility], [address] [place] [address] Abnormal PSA (Primary Dx) Social History Tobacco Use Types Packs/Day Years [...] No 11/10/2017 documented as of this encounter Progress Notes * Scar Osorio MD - 06/21/2021 1230 EST Chief Complaint: No chief complaint on file. HPI: Talia is a 66 y.o. male with a history of an abnormal PSA as well as prostatitis and urinary frequency. I previously prescribed tamsulosin but he has been holding off on this since his symptoms are stable. He underwent a transrectal ultrasound and prostate biopsy in June 2021 with ultrasound showing a 70 g prostate. He recovered well from the procedure. Pathology was benign. He states hisprostate does feel better than prior to the biopsy. Medications Current Outpatient Medications: ??? ciprofloxacin HCl (CIPRO) 500 mg tablet, Take 1 tablet by mouth night before procedure Take 1 tablet by mouth morning of procedure Then take 1 tablet by mouth every 12 hours until gone, Disp: 7 Tablet, Rfl: 0 ??? LORazepam (ATIVAN) 2 mg tablet, Take 2 mg by mouth as needed for Anxiety., Disp: , Rfl: ??? polyethylene glycol (GOLYTELY) 236-22.74-6.74 -5.86 gram suspension, Follow instructions on 'colonoscopy preparation instructions' sheet. (Patient not taking: Reported on 08/31/2019), Disp: 1 Bottle, Rfl: 0 ??? pseudoephedrine HCl (SUDAFED ORAL), Take by mouth., Disp: , Rfl: ??? sildenafil citrate (VIAGRA ORAL), Take by mouth as needed. , Disp: , Rfl: ??? tamsulosin (FLOMAX) 0.4 mg capsule, Take 1 Cap by mouth daily. (Patient not taking: Reported on08/31/2019), Disp: 30 Cap, Rfl: 3 Allergies Allergies Allergen Reactions ??? Gpqdaia-Qbr-Jot Reductase Inhibitors Other (See Comments) Limb pain ??? Sulfa (Sulfonamide Antibiotics) Other (See Comments) Johann Jovani syndrome Objective/Physical Exam: Vital Signs: There were no vitals taken for this visit. Exam: Data Review: NA Labs: PSA: Lab Results Component Value Date PSA 8.3 (H) 04/06/2021 Impression: Patient with abnormal PSA as high as 8.8 now status post transrectal ultrasound and prostate biopsy in June 2021 with a gland size of 70 g and benign pathology. I discussed with him if his BPH symptoms worsen he should try tamsulosin. Plan: Follow-up in 1 year with PSA Scar Osorio MD This note has been prepared with voice recognition software. Please excuse derrick barge operator errors. Patient consented to a phone visit. I spent a total of 5 minutes with Talia Ho today and 5 minutes of that time was spent in counseling and coordination of care as described in the progress note. documented in this encounter Plan of Treatment Upcoming Encounters Date Type Department Care Team (Late st Contact Info) Description 04/22/2024 8:10 EDT Appointment [facility] Endoscopy - [address] [id number] Zak Solorzano MD [address] [facility], [facility], [address] [place] [phone] documented as of this encounter Visit Diagnoses Diagnosis Abnormal PSA- Primary Elevated prostate specific antigen (PSA) documented in this encounter Care Teams Electrical Prospecting Engineer Relationship Specialty Start Date End Date Viola Dave MD [address] [place] [address] PCP - General 05/29/21 02/26/23 documented as of this encounter
--- OUTSIDE RECORDS SUMMARY | 2024-04-13 08:45 | XMS_ITS | Encounter Summary ---
Author Organization [facility] Address [address] [place] [address] Care Team Providers Care Manager Trade Marketing Name Role Phone Cassidy Pablo MD Primary Care Provider [phone] Viola Dave MD Primary Care Provider Unknown, Provider Primary Care Provider [phone] Encounter Details Date Type Department Care Team (Late st Contact Info) Description 04/09/2021 Lab Requisition [facility] Pathology & Laboratory Medicine - [address] [id number] Viola Dave MD [address] [place] [phone] Encounter for screening for lipoid disorders; Disorder of thyroid, unspecified; Elevated prostate specific antigen (PSA) Social History Tobacco Use Types Packs/Day Years [...] No 11/10/2017 Cognitive Status Response Date of Assess ent Because of a physical, menta l, or emotional condition, does this person have serious difficulty concentrating, remembering, or making decisions? No 11/10/2017 documented as of this encounter Plan of Treatment Upcoming Encounters Date Type Department Care Team (Late st Contact Info) Description 04/22/2024 8:10 EDT Appointment [facility] Endoscopy - [facility] [address] [place], [place] [phone] Zak Solorzano MD [address] [facility], [address] [place] [address] documented as of this encounter Procedures Procedure Name Priority Date/Time Associated Diagnosis Comments PSA SCREEN Routine 04/06/2021 10:47 EDT Encounter for screening for lipoid disorders Disorder of thyroid, unspecified Elevated prostate specific antigen (PSA) documented in this encounter Results * (ABNORMAL) PSA SCREEN (04/06/2021 10:47 EDT) PSA 8.3(H) 0.0 - 4.5 ng/mL 04/09/2021 17:12 EDT [facility] Blood VENOUS BLOOD / Unknown 04/06/2021 10:47 EDT 04/09/2021 15:27 EDT Narrative [facility] - 04/09/2021 17:12 EDT NOTE: Serum PSA concentration should not be interpreted as absolute evidence for the presence or absence of malignant disease. Assayed on Siemens ADVIA Centaur XPT using chemiluminescent technology.??Values obtained by using different assay methods cannot be used interchangeably. Viola Dave MD CHEMISTRY & BLO OD GAS ORDERABLES [facility] [address] [place] [address] documented in this encounter Visit Diagnoses Diagnosis Encounter for screening for lipoid disorders Screening for lipoid disorders Disorder of thyroid, unspecified Elevated prostate specific antigen (PSA) documented in this encounter Care Teams Manager Trade Marketing Relationship Specialty Start Date End Date Cassidy Pablo MD [address] [facility] [address] [place] [address] PCP - General 12/21/14 05/28/21 Viola Dave MD [address] [place] [phone] PCP - General 05/29/21 02/26/23 Unknown, Provider, PCP - General 02/27/23 documented as of this encounter
--- OUTSIDE RECORDS SUMMARY | 2024-04-13 08:45 | XMS_ITS | Encounter Summary ---
Author Organization [facility] Address [address] [place] [address] Care Team Providers Care Fisher Trap Name Role Phone Viola Dave MD Primary Care Provider Reason for Visit * Reason Onset Date Comments Appointment Related 06/21/2021 Encounter Details Date Type Department Care Team (Late st Contact Info) Description 06/21/2021 Telephone [facility] Urology - [address] [phone] Scar Osorio MD [address] [facility], [address] [place] [address] Appointment Related Social History Tobacco Use Types Packs/Day Years [...] encounter Miscellaneous Notes * Telephone Encounter - Lance Edouard - 06/21/2021 0927 EST Patient is returning call to reschedule 06/25 appointment, possible for today. Please call back. documented in this encounter Plan of Treatment Upcoming Encounters Date Type Department Care Team (Late st Contact Info) Description 04/22/2024 8:10 EDT Appointment [facility] Endoscopy - [address] [address] Zak Solorzano MD [address] [facility], [address] [place] [address] documented as of this encounter Visit Diagnoses Not on filedocumented in this encounter Care Teams Fisher Trap Relationship Specialty Start Date End Date Viola Dave MD [address] [place] [phone] PCP - General 05/29/21 02/26/23 documented as of this encounter
--- OUTSIDE RECORDS SUMMARY | 2024-04-13 08:45 | XMS_ITS | Encounter Summary ---
Author Organization [facility] Address [address] [place] [address] Care Team Providers Care Glaze Handler Name Role Phone Unknown, Provider Primary Care Provider Reason for Referral * Referral (Routine) - Authorization Not Required Specialty Diagnoses / Procedures Referred By Contact Referred To Contact Gastroenterology and Hepatology Diagnoses Special screening for malignant neoplasms, colon Procedures COLONOSCOPY ND COLONOSCOPY FLX DX W/COLLJ SPEC WHEN PFRMD ND COLONOSCOPY W/BIOPSY SINGLE/MULTIPLE ND COLSC FLX W/REMOVAL LESION BY HOT BX FORCEPS Viola Dave MD [address] [place] [address] [place] [address] [address] [place] [address] Referral ID Status Reason Start Date Expiration Date Visits Requested Visits Authorized [id number] Authorization Not Required 3 1 1 Encounter Details Date Type Department Care Team (Latest Contact Info) Description 04/28/2023 Transcribe Orders [facility] Gastroenterology - [facility] [place] [address] [place] [address] Viola Cerda MD [address] [place] [address] Special screening for malignant neoplasms, colon (Primary Dx) Social History Tobacco Use Types [...] Contact Info) Description 04/22/2024 8:10 EDT Appointment [facility] Endoscopy - [address] [address] Zak Solorzano MD [address] [place] [address], [address] [place] [phone] Scheduled Orders Name Type Priority Associated Diagnoses Orde r Schedule COLONOSCOPY GI Routine Special screening for malignant neoplasms, colon Expected: 04/28/2023 (Approximate), Expires: 10/27/2024 documented as of this encounter Visit Diagnoses Diagnosis Special screening for malignant neoplasms, colon- Primary documented in this encounter Care Teams Glaze Handler Relationship Specialty Start Date End Date Unknown, Provider, PCP - General 02/27/23 documented as of this encounter
--- OUTSIDE RECORDS SUMMARY | 2024-04-13 08:45 | XMS_ITS | Referral Summary ---
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 Active tamsulosin (FLOMAX) 0.4 mg capsule Take 1 Cap by mouth daily. 30 Cap 3 08/09/2019 Active Additional Information Patient not taking.Reported on 08/31/2019 timolol (TIMOPTIC) 0.5 % ophthalmic solution Place 1 Drop into both eyes 2 times daily. 30 mL 3 2023 Active polyethylene glycol (MIRALAX) 17 gram/dose powder Dissolve mixture and drink as directed prior to procedure (see provided instructions). 238 g 01/19/2024 07/17/2024 Active bisacodyL (DULCOLAX) 5 mg EC tablet Take as directed prior to procedure (see provided instructions). 4 Tablet 01/19/2024 07/17/2024 Active Active Problems Problem Noted Date Diagnosed Date Primary open angle glaucoma (POAG) of both eyes, mild stage 07/10/2021 Nuclear sclerosis of both eyes 07/10/2021 Hx of LASIK 07/10/2021 Immunizations Name Administration Dates Next Due Covid-19 mRNA Vaccine (PFIZE R COVID-19) PF 0.3 ml IM (12 yrs+) 09/28/2020,09/07/2020 Social History Tobacco Use Types Packs/Day Years [...] 11:54 EST Sexual Orientation Not on file Last Filed Vital Signs Vital Sign Reading Time Taken Comments Blood Pressure 115/81 10/06/2018 1441 EDT Pulse 77 09/17/2018 1322 EDT Temperature 35.7 ??C (96.3 ??F) 10/06/2018 1433 EDT Respiratory Rate 15 10/06/2018 1441 EDT Oxygen Saturation 94% 10/06/2018 1441 EDT Inhaled Oxygen Concentration - - Weight 83.9 kg (185 lb) 10/06/2018 1339 EDT Height 175.3 cm (5' 9) 10/06/2018 1339 EDT Body Mass Index 27.32 10/06/2018 1339 EDT Functional Status Functional Status Response Date of [...] concentrating, remembering, or making decisions? No 11/10/2017 Plan of Treatment Upcoming Encounters Date Type Department Care Team (Late st Contact Info) Description 04/22/2024 8:10 EDT Appointment [facility] Endoscopy - [address] [address] Zak Solorzano MD 111 [facility], [address] [place] [address] Procedures Procedure Name Priority Date/Time Associated Diagnosis Comments COLONOSCOPY PROCEDURE Routine 10/06/2018 from Last 3 Months or Most Recently Relevant to Health Maintenance Results * COLONOSCOPY PROCEDURE (10/06/2018) Anatomical Region Laterality Modality Endoscopy 10/06/2018 Narrative 10/06/2018 14:31 EDT Procedure Performed Colonoscopy: screening Indications for Exam Screening Colonoscopy. Procedure Technique A physical exam was performed. Informed consent was obtained from the patient after explaining all the risks (perforation, bleeding, missed findings, injury to nearby organs, infection and adverse effects to the medicine), benefits and alternatives to the procedure which the patient appeared to understand and so stated. ??The patient was connected to the monitoring devices and placed in the left lateral position. Continuous oxygen was provided with a nasal cannula and IV medicine administered thru an indwelling cannula. After adequate sedation was achieved, a digital exam was performed and the colonoscope introduced into the rectum and advanced under direct visualization to the terminal ileum. ?? The terminal ileum was identified by visual landmarks. The endoscope was subsequently removed slowly while carefully examining the color, texture, anatomy, and integrity of the mucosa on withdrawal. Retroflexion was performed in the rectum: Yes. The patient was subsequently transferred to the recovery area in satisfactory condition. Rectal Exam:Normal Estimated Blood Loss: None Complications None Medications Versed 2 mg Demerol ??50 mg I was in continuous face to face attendance during the administration of moderate sedation services that were monitored by an independent trained observer who had no other duties during the procedure. ??Total sedation time was 23 ?? minutes. [place] Bowel Prep Right Colon: 3 ? Transverse Colon: 3 ? Left Colon: 3 ?Total: 9 Findings Polyp: diminutive cecal polyp removed and retrieved via cold biopsy polypectomy Diagnosis Polyp: diminutive cecal polyp removed and retrieved via cold biopsy polypectomy Recommendations Follow biopsy results. Repeat colonoscopy in 5-10 years. Follow up with referring physician. This electronic signature authenticates all electronic and/or handwritten documentation, including orders, generated by the signer during the episode of care contained in this record. 10/06/2018 02:31:20 PM By Jessika Latham MD Jessika Latham MD GI PROCEDURE ORDERA BLES from Last 3 Months or Most Recently Relevant to Health Maintenance Care Teams Mortgage Loan Underwriter Relationship Specialty Start Date End Date Unknown, Provider, PCP - General 02/27/23
--- OUTSIDE RECORDS SUMMARY | 2024-04-13 08:45 | XMS_ITS | Encounter Summary ---
Author Organization [facility] Address [address] [place] [address] Care Team Providers Care Executive Vice President And Chief Operating Officer Name Role Phone Cassidy Pablo MD Primary Care Provider [phone] Reason for Visit * Reason Comments Follow-up Encounter Details Date Type Department Care Team (Late st Contact Info) Description 04/30/2021 8:30 EDT Telemedicine [facility] Urology - [address] [id number] Scar Osorio MD [address] [place] [address], [address] [place] [address] Abnormal PSA (Primary Dx) Social [...] Dispensed Refills Start Date End Da te ciprofloxacin HCl (CIPRO) 500 mg tablet Take 1 tablet by mouth night before procedure Take 1 tablet by mouth morning of procedure Then take 1 tablet by mouth every 12 hours until gone 7 Tablet 04/30/2021 07/10/2021 documented in this encounter Progress Notes * Scar Osorio MD - 04/30/2021 0830 EDT Chief Complaint: No chief complaint on file. HPI: Talia is a 66 y.o. male with a history of prostatitis as well as abnormal PSA. His last PSA trended upward to 8.3. Overall feels well. Lab Results Component Value Date PSA 8.3 (H) 04/06/2021 PSA 4.9 (H) 08/27/2019 Medications Current Outpatient Medications: ??? LORazepam (ATIVAN) 2 mg tablet, Take [...] Rfl: 3 Allergies Allergies Allergen Reactions ??? Gsbkxzj-Fii-Obf Reductase Inhibitors Other (See Comments) Limb pain ??? Sulfa (Sulfonamide Antibiotics) Other (See Comments) Johann Jovani syndrome Objective/Physical Exam: Vital Signs: There were no vitals taken for this visit. Exam: Constitutional: Alert, in no distress. Pulm: Normal effort, unlabored Psych: Mood and affect appropriate Data Review: NA Labs: PSA: Lab Results Component Value Date PSA 8.3 (H) 04/06/2021 Impression: Patient with an abnormal PSA that has trended up from 4.9-8.3 associated with benign digital rectal exam. I discussed with him proceeding with a transrectal ultrasound and prostate biopsy. Plan: TRUS and biopsy Scar Osorio MD This note has been prepared with voice recognition software. Please excuse tube heater errors. Patient consented to a phone visit. I spent a total of 9 minutes with Talia Ho today and 9 minutes of that time was spent in counseling and coordination of care as described in the progress note. documented in this encounter Plan of Treatment Upcoming Encounters Date Type Department Care Team (Late st Contact Info) Description 04/22/2024 8:10 EDT Appointment [facility] Endoscopy - [address] [id number] Zak Solorzano MD 111 [facility], [address] [place] [phone] documented as of this encounter Visit Diagnoses Diagnosis Abnormal PSA- Primary Elevated prostate specific antigen (PSA) documented in this encounter Care Teams Executive Vice President And Chief Operating Officer Relationship Specialty Start Date End Date Cassidy Pablo MD [address] [place] [address] [address] [place] [address] PCP - General 12/21/14 05/28/21 documented as of this encounter
--- OUTSIDE RECORDS SUMMARY | 2024-04-13 08:45 | XMS_ITS | Encounter Summary ---
Author Organization [facility] Address [address] [place] [address] Care Team Providers Care Nuclear Fuel Processing Technician Name Role Phone Viola Dave MD Primary Care Provider Reason for Visit * Reason Comments Glaucoma Suspicion * Consult, Test and Treat (Routine) - Receiving Office to Obtain Authorization Specialty Diagnoses / Procedures Referred By Owen lawson Referred To Contact Ophthalmology Diagnoses Open angle with borderline findings, low risk, bilateral Elaine, Kevin, OD [address] [address] Blake Doran MD [address] [place] [phone] Referral ID Status Reason Start Date Expiration Date Visits Requested Visits Authorized [id number] Receiving Office to Obtain Authorization 1 1 Encounter Details Date Type Department Care Team (Late st Contact Info) Description 07/10/2021 8:15 EST Office Visit [facility] Ophthalmology - [address] [address] Blake Doran MD [address] [place] [phone] Social History Tobacco Use Types Packs/Day Years [...] Drop into both eyes 2 times daily. 10 mL 11 07/10/2021 12/20/2021 documented in this encounter Progress Notes * Blake Doran MD - 07/10/2021 0815 EST Chief Complaint Patient presents with ??? Glaucoma Suspicion Comments Pt referred by Kevin Henry OD for POAG evaluation. [facility] sent for both eyes. Pt has Hx of LASIK ~20 years ago. Pt started using reading glasses ~3 years ago, started noticing degradation of distance VA about 2 years ago. No eye pain, no ocular irritation other than intermittent eye dryness, does not treat with ATs. No floaters, no flashes. However pt has had several instances ofa not overly bright light being flashed at night, and having that same light occur in his vision atnight without the original light source. Pt has worn glasses since third grade. No other eye surgeries. Pt is unaware of ever having had eye pressure. Some issues with glare while driving at night, not a significant issue, but noticeable. HPI :The patient is a 66 y.o. male Physician HPI: Pt denies recent vision change -- notes some glare when driving at night, this seems minor to her Referred from optometry for glaucoma evaluation no recent flashes -- no new floaters denies eye redness -- denies eye pain denies recent eye trauma -- denies new eye medicines Physician ROS: Pt denies diabetes -- Pt denies new cough / shortness of breath Right Eye: NL Left Eye: NL Visual Aid: Glasses Current Rx Age 5 months Location: Both eyes Pain: 0 - No pain Quality: Severity: Duration: Months Timing: Constant Lasts: Months Context: Modifying factors: Associated Signs & Symptoms: Attestation: ROS Constitutional: ENT/Mouth NL Cardiovascular: High Cholesterol Respiratory: NL Gastrointestinal: Genitourinary: Musculoskeletal: Integumentary: Neurologic: NL Psychiatric: Endocrine: NL Hematologic: NL Immunologic: NL Telephone Claims Representative: Exposures: Other: Attestation: Allergies include: Htfvazo-yjs-lpb reductase inhibitors and Sulfa (sulfonamide antibiotics) There is no problem list on file for this patient. Outpatient Medications Marked as Taking for the 07/10/21 encounter (Office Visit) with Blake Doran MD Medication Sig ??? sildenafil citrate (VIAGRA ORAL) Take by mouth as needed. Past Medical History: Diagnosis Date ??? Chronic kidney disease donated kidney ??? Hepatitis A ??? Malaria ??? Other states following surgery of eye and adnexa Past Surgical History: Procedure Laterality Date ??? ACHILLES TENDON SURGERY Right ??? EYE SURGERY ??? KIDNEY REMOVAL Left ??? KNEE SURGERY Right meniscus ??? LASIK Bilateral ~2001 ??? TONSILLECTOMY Family History Problem Relation Age of Onset ??? Breast Cancer Neg Hx ??? Colon Cancer Neg Hx ??? Colon Polyps Neg Hx ??? Endometrial Cancer Neg Hx ??? Esophageal Cancer Neg Hx ??? Ovarian Cancer Neg Hx ??? Pancreatic Cancer Neg Hx ??? Rectal Cancer Neg Hx ??? Stomach Cancer Neg Hx Patient reports that he has never smoked. He quit smokeless tobacco use about 19 years ago. His smokeless tobacco use included chew. He reports current drug use. Drug: Marijuana. He reports that he does not drink alcohol. Recent HbA1c: No results found for: HGBA1C Base Eye Exam Visual Acuity (Snellen - Linear) Right Left Dist cc 20/20 -1 20/20 -2 Correction: Glasses Tonometry (Applanation, 8:56) Right Left Pressure 23 27 Pachymetry (02/2021 [employer]) Right Left Thickness 518 539 Gonioscopy OU: open to CB, 1+ pigment Pupils Dark Light Shape React APD Right 6 5 Round Brisk None Left 6 5 Round Brisk None Visual Buckley (Counting fingers) Right Left Full Full Extraocular Movement Right Left Full, Ortho Full, Ortho Neuro/Psych Oriented x3: Yes Mood/Affect: Normal Dilation Both eyes: Paremyd @ 9:46 Slit Lamp and Fundus Exam External Exam Right Left External Normal Normal Slit Lamp Exam Right Left Lids/Lashes Normal Normal Conjunctiva/Sclera White and quiet White and quiet Cornea Clear Clear Anterior Chamber Deep and quiet Deep and quiet Iris Round and reactive Round and reactive Lens 2+ NS 3+ NS Vitreous PVD, clear Clear Fundus Exam Right Left Disc to rim inferior to rim inferior C/D Ratio 0.9 0.85 Macula Normal Normal Vessels Normal Normal Periphery Normal Normal Refraction Wearing Rx Sphere Cylinder [place] Add Right +0.25 +0.25 139 +2.50 Left -2.00 +0.50 095 +2.50 Age: 5m Type: PAL IMPRESSION & PLAN: 1. Primary open angle glaucoma of both eyes, mild stage -- referred from optometry (Elaine, OD at [facility]), reviewed recent notes and tests, FHx in mother and grandmother -- ON thinning R > L --HVF 24-2 OU today (07/28) reliable, early arcuate R > L, basically consistent with outside VFs --OCT NFL OU today (07/28) inferior > superior thinning R > L -- all data consistent with early g laucoma -- note pt myopic prior to LASIK, so some of this may be anomalous nerve structure -- D/W pt, rec begin rx to reduce glaucoma risks, begin timolol OU BID -- pt agrees to this plan -- F/U 3 M:IOP, HVF 24-2 OU ON: 0.9 / 0.85, to rim inf OU -- no APD Tmax: CCT: 518 / 539 -- hx of LASIK OU Gonio: Open CBB to SS, 1+ pigment OU (07/28) VF: early superior arc / possible early superior arc (07/28) OCT: 55 / 59 (07/28) Surg: none Drops: none Allergy: none 2. Nuclear sclerosis of both eyes -- moderate NS OU, becoming visually significant -- cont glasses per [facility] optometry (Elaine, OD) 3. Hx of LASIK both eyes I have reviewed the past medical, family, social and surgical history. I have reviewed the meds, allergies, and problem list. I performed my own HPI and reviewed the ROS. I personally completed the exam. The patient was instructed to call our office or go to emergency room if worse vision, worse symptoms, or new/other concerns arise. Blake Doran MD documented in this encounter Plan of Treatment Upcoming Encounters Date Type Department Care Team (Late st Contact Info) Description 04/22/2024 8:10 EDT Appointment [facility] Endoscopy - [facility] [address] [place] [address] Zak Solorzano MD 111 [facility], [address] [place] [address] documented as of this encounter Procedures Procedure Name Priority Date/Time Associated Diagnosis Comments PETERSON VF 24-2 STANDARD - OU - BOTH EYES Routine 07/10/2021 10:33 EST Primary open angle glaucoma (POAG) of both eyes, mild stage OCT, OPTIC NERVE - OU - BOTH EYES Routine 07/10/2021 10:33 EST Primary open angle glaucoma (POAG) of both eyes, mild stage documented in this encounter Results * PETERSON VF 24-2 STANDARD - OU - BOTH EYES (07/10/2021 10:33 EST) Narrative [facility] POINT OF CARE - 07/10/2021 10:33 EST Right Eye 24-2. Left Eye 24-2. Notes See interpretation / assessment in main note. Blake Doran MD OPHTH VISUAL FIELD [facility] POINT OF CARE * OCT, OPTIC NERVE - OU - BOTH EYES (07/10/2021 10:33 EST) Narrative [facility] POINT [facility] CARE - 07/10/2021 10:33 EST See interpretation / assessment in main note. Blake Doran MD OPHTH TOMOGRAPHY [facility] POINT OF CARE documented in this encounter Visit Diagnoses Diagnosis Primary open angle glaucoma (POAG) of both eyes, mild stage- Primary Nuclear sclerosis of both eyes Hx of LASIK Other states following surgery of eye and adnexa documented in this encounter Discontinued Medications Medication Sig Discontinue Reason Start Date End Da te ciprofloxacin HCl (CIPRO) 500 mg tablet Take 1 tablet by mouth night before procedure Take 1 tablet by mouth morning of procedure Then take 1 tablet by mouth every 12 hours until gone Therapy completed 04/30/2021 07/10/2021 pseudoephedrine HCl (SUDAFED ORAL) Take by mouth. Therapy completed 07/10/2021 polyethylene glycol (GOLYTELY) 236-22.74-6.74 -5.86 gram suspensionIndications :Personal history of colonic polyps Follow instructions on 'colonoscopy preparation instructions' sheet. Therapy completed 07/16/2018 07/10/2021 LORazepam (ATIVAN) 2 mg tablet Take 2 mg by mouth as needed for Anxiety. Therapy completed 07/10/2021 documented as of this encounter Eye Exam Visual Acuity (Snellen - Linear) Right eye Left eye Dist cc 20/20 -1 20/20 -2 Correction: Glasses Tonometry (Applanation, 8:56) Right eye Left eye Pressure 23 27 Pachymetry (02/2021 [employer]) Right eye Left eye Thickness 518 539 Gonioscopy OU: open to CB, 1+ pigment Pupils Dark Light Shape React APD Right eye 6 5 Round Brisk None Left eye 6 5 Round Brisk None Visual Buckley (Counting fingers) Right eye Left eye Full Full Extraocular Movement Right eye Left eye Full, Ortho Full, Ortho Neuro/Psych Oriented x3: Yes Mood/Affect: Normal Dilation Both eyes: Paremyd @ 9:46 External Exam Right eye Left eye External Normal Normal Slit Lamp Exam Right eye Left eye Lids/Lashes Normal Normal Conjunctiva/Sclera White and quiet White and alfredito et Cornea Clear Clear Anterior Chamber Deep and quiet Deep and quiet Iris Round and reactive Round and chriss ctive Lens 2+ NS 3+ NS Vitreous PVD, clear Clear Fundus Exam Right eye Left eye Disc to rim inferior to rim inferior C/D Ratio 0.9 0.85 Macula Normal Normal Vessels Normal Normal Periphery Normal Normal Wearing Rx Sphere Cylinder [place] Add Right eye +0.25 +0.25 139 +2.50 Left eye -2.00 +0.50 095 +2.50 Age: 5m Type: [facility] Care Teams Nuclear Fuel Processing Technician Relationship Specialty Start Date End Date Viola Dave MD [address] [place] [phone] PCP - General 05/29/21 02/26/23 documented as of this encounter
--- OUTSIDE RECORDS SUMMARY | 2024-04-13 08:45 | XMS_ITS | Encounter Summary ---
Author Organization [facility] Address [address] [place] [address] Care Team Providers Care Data Security Analyst Name Role Phone Viola Dave MD Primary Care Provider Reason for Visit * Reason Comments Follow-up Encounter Details Date Type Department Care Team (Late st Contact Info) Description 06/13/2021 9:45 EST Procedure visit [facility] Urology - [facility] [address] [place], [place] [address] Scar Osorio MD [address] [facility], [address] [place] [address] Elevated PSA (Primary Dx) Social History Tobacco Use [...] Progress Notes * Scar Osorio MD - 06/13/2021 0945 EST SERVICE DATE: 06/13/2021 SURGEON: Scar Osorio MD PROCEDURE PERFORMED: Transrectal ultrasound-guided prostate biopsy INDICATION FOR PROCEDURE: PSA of 8.3 with a benign ALIN. After risks of bleeding, infection and failure to diagnose an existing prostate cancer were reviewed, informed consent was obtained. 4 days of ciprofloxacin 500 mg BID was initiated yesterday. NARRATIVE: The patient was prepped and draped in the left lateral position. The 7.5 MHz Sera IU22 transrectal ultrasound probe was passed without difficulty. Real-time axial and sagittal viewings were obtained. The prostate volume was calculated at 70.6 cubic centimeters. A 22-gauge spinal needle, under real-time ultrasound, was utilized to inject 5 mL of 1% plain lidocaine at the base of both seminal vesicles for procedural analgesia. Utilizing real-time ultrasound and the automatic biopsy device, a total of 12 core biopsies of the prostate were obtained (2 from the base, middle and apex on each side). The biopsies were sent in formalin for pathologic analysis. The patient tolerated the procedure well. He will complete the course of ciprofloxacin and contact us with any fevers, chills or significant hematuria. He will follow up to discuss the biopsy results. Scar Osorio MD documented in this encounter Plan of Treatment Upcoming Encounters Date Type Department Care Team (Late st Contact Info) Description 04/22/2024 8:10 EDT Appointment [facility] Endoscopy - [address] [address] Zak Solorzano MD [address] [place] [address], [address] [place] [address] documented as of this encounter Procedures Procedure Name Priority Date/Time Associated Diagnosis Comments SURGICAL PATHOLOGY Routine 06/13/2021 10 :10 EST Elevated PSA documented in this encounter Results * SURGICAL PATHOLOGY (06/13/2021 10:10 [facility]) Note to Patient The following pathology results have been interpreted by your pathologist and may be available to you before your health provider has had the opportunity to review them. Please allow time for your provider to receive these results and explore management options, if applicable. 06/15/2021 10:39 [facility] Final Diagnosis A. PROSTATE, RIGHT BASE, BIOPSY (2): - Prostatic tissue with focal atrophy. B. PROSTATE, RIGHT MID, BIOPSY (2): - Prostatic tissue with focal atrophy and focal chronic inflammation. - Benign colorectal mucosa. C. PROSTATE, RIGHT APEX, BIOPSY (2): - Prostatic tissue with focal atrophy and focal chronic inflammation. D. PROSTATE, LEFT BASE, BIOPSY (2): - Prostatic tissue with focal atrophy. E. PROSTATE, LEFT MID, BIOPSY (2): - Prostatic tissue with focal atrophy. F. PROSTATE, LEFT APEX, BIOPSY (2): - Prostatic tissue with focal atrophy and focal chronic inflammation. 06/15/2021 10:39 [facility] Attestation By the signature below, the attending physician certifies that they have 1) personally conducted a gross and/or microscopic examination of the described specimen(s), and/or personally interpreted the results of laboratory testing of the described specimen(s), and 2) personally rendered or confirmed the above diagnosis. 06/15/2021 10:39 [facility] at 1039 Clinical History Elevated PSA; clinical diagnosis code: R97.20 06/15/2021 10:39 [facility] Gross Description A. Received in formalin labelled with proper patient identification (initials G, D) and R base are two monae cylindrical tissues, 1.5 x 0.1 cm and 1.7 x 0.1 cm. Entirely submitted in A1. B. Received in formalin labelled with proper patient identification (initials G, D) and R mid are two monae cylindrical tissues averaging 1.7 x 0.1 cm. Entirely submitted in B1. C. Received in formalin labelled with proper patient identification (initials G, D) and R apex are two monae cylindrical tissues, 1.4 x 0.1 cm and 1.5 x 0.1 cm. Entirely submitted in C1. D. Received in formalin labelled with proper patient identification (initials G, D) and L base are two monae cylindrical tissues averaging 1.7 x 0.1 cm. Entirely submitted in D1. E. Received in formalin labelled with proper patient identification (initials G, D) and L mid are two cylindrical tissues, 1.5 x 0.1 cm and 1.8 x 0.1 cm. Entirely submitted in E1. F. Received in formalin labelled with proper patient identification (initials G, D) and L apex are two monae cylindrical tissues, 1.2 x 0.1 cm and 1.4 x 0.1 cm. Entirely submitted in F1. YOLANDA ENAMORADO(ASCP) 06/13/2021 11:38 06/15/2021 10:39 EST [facility] Performing Lab [facility] 06/15/2021 10:39 EST [facility] Scanned Images 06/15/2021 10:39 EST [facility] Tissue ENTIRE BASE OF PROSTATE / Unknown Collection, Other / Unknown 06/13/2021 10:10 EST 06/13/2021 11:01 EST Tissue specimen (specimen) RIGHT MIDDLE TRANSITION ZONE OF PROSTATE / Unknown 06/13/2021 10:10 EST 06/13/2021 11:01 EST Tissue specimen (specimen) RIGHT APICAL TRANSITION ZONE OF PROSTATE / Unknown 06/13/2021 10:10 EST 06/13/2021 11:01 EST Tissue specimen (specimen) LEFT BASAL TRANSITION ZONE OF PROSTATE / Unknown 06/13/2021 10:10 EST 06/13/2021 11:01 EST Tissue specimen (specimen) LEFT MIDDLE TRANSITION ZONE OF PROSTATE / Unknown 06/13/2021 10:10 EST 06/13/2021 11:01 EST Tissue specimen (specimen) LEFT APICAL TRANSITION ZONE OF PROSTATE / Unknown 06/13/2021 10:10 EST 06/13/2021 11:01 EST Scar Osorio MD PATHOLOGY ORDERABLES [facility] [address] [place] [address] documented in this encounter Visit Diagnoses Diagnosis Elevated PSA- Primary Elevated prostate specific antigen (PSA) documented in this encounter Care Teams Data Security Analyst Relationship Specialty Start Date End Date Viola Dave MD [address] [place] [address] PCP - General 05/29/21 02/26/23 documented as of this encounter
--- OUTSIDE RECORDS SUMMARY | 2024-04-13 08:45 | XMS_ITS | Encounter Summary ---
Author Organization [facility] Address [address] [place] [address] Care Team Providers Care Enrobing Machine Corder Name Role Phone Viola Dave MD Primary Care Provider Reason for Visit * Reason Comments Eye Problem Eye Exam Encounter Details Date Type Department Care Team (Late st Contact Info) Description 10/08/2021 9:00 EDT Office Visit [facility] Ophthalmology - [address] [address] Blake Doran MD [address] [facility], [address] [place] [address] Social History Tobacco Use Types Packs/Day [...] as of this encounter Progress Notes * Blake Doran MD - 10/08/2021 0900 EDT No chief complaint on file. Comments 3 M: IOP, HVF 24-2 OU -- H/O POAG OU. Pt started taking timolol OU BID after last visit, taking about 90% of the time. No issues tolerating it other than it tastes salty. HPI :The patient is a 66 y.o. male Physician HPI: Pt denies recent vision change no recent flashes -- no new floaters denies eye redness -- denies eye pain denies recent eye trauma -- added timolol as discussed last visit Physician ROS: Pt denies diabetes -- Pt denies new cough / shortness of breath Right Eye: NL Left Eye: NL Visual Aid: Glasses Current Rx Age Location: Both eyes Pain: 0 - No pain Quality: Severity: Mild Duration: Years Timing: Constant Lasts: Continuous Context: 3 M: IOP, HVF 24-2 OU -- Modifying factors: Pt started taking timolol OU BID after last visit, Associated Signs & Symptoms: H/O POAG OU. Attestation: ROS Constitutional: ENT/Mouth Cardiovascular: NL Respiratory: Gastrointestinal: Genitourinary: Musculoskeletal: Integumentary: Neurologic: Psychiatric: Endocrine: NL Hematologic: Immunologic: Drug Allergy Supervisor Pit [employer] A[employer]iliaries: Exposures: Other: Attestation: Allergies include: Mpdkacs-yyf-xiz reductase inhibitors and Sulfa (sulfonamide antibiotics) Patient Active Problem List Diagnosis ??? Primary open angle glaucoma (POAG) of both eyes, mild stage ??? Nuclear sclerosis of both eyes ??? Hx of LASIK Outpatient Medications Marked as Taking for the 10/08/21 encounter (Office Visit) with Blake Doran MD Medication Sig ??? sildenafil citrate (VIAGRA ORAL) Take by mouth as needed. ??? timolol (TIMOPTIC) 0.5 % ophthalmic solution Place 1 Drop into both eyes 2 times daily. Past Medical History: Diagnosis Date ??? Chronic kidney disease donated kidney ??? Glaucoma ??? Hepatitis A ??? Malaria ??? Other [...] - Linear) Right Left Dist cc 20/20 -2 20/20 -1 Correction: Glasses Tonometry (Applanation, 9:16) Right Left Pressure 19 19 Pupils Dark Light Shape APD Right 5 3 Round None Left 5 3 Round None Extraocular Movement Right Left Full Full Neuro/Psych Oriented x3: Yes Mood/Affect: Normal Slit Lamp and Fundus Exam External Exam [...] 0.85 Macula Normal Normal Vessels Normal Normal Refraction Wearing Rx Sphere Cylinder [place] Add Right +0.25 +0.25 139 +2.50 Left -2.00 +0.50 095 +2.50 Type: PAL IMPRESSION & PLAN: 1. Primary open angle glaucoma of both eyes, mild stage -- referred from optometry (Elaine, OD at [facility]), FHx in mother and grandmother -- clearly cupped R > L -- last visit added timolol and IOP improved OU -- HVF 24-2 OU today (10/26) reliable, stable with early arcuates R > L -- OCT NFLOU (07/28) inferior > superior thinning R > L -- note pt myopic prior to LASIK, so some of this may be anomalous nerve structure -- D/W pt, very good improvement in IOP, essential to monitor closely, may need added rx -- F/U 5 M: IOP, HVF 24-2 FAST OU ON: 0.9 / 0.85, to rim inf OU -- no APD Tmax: CCT: 518 / 539 -- hx of LASIK OU Gonio: Open CBB to SS, 1+ pigment OU (07/28) VF: early superior arc / likely early inferior > superior arc (10/26) OCT: 55 / 59 (07/28) Surg: none Drops: timolol OU BID Allergy: none 2. Nuclear sclerosis of both eyes -- moderate NS L > R, becoming visually significant -- cont glasses per [facility] (Elaine, OD) 3. Hx of LASIK both eyes 4. Posterior vitreous detachment of right eye -- retina stable OU on DFEx (07/28) I have reviewed the past medical, family, [...] Contact Info) Description 04/22/2024 8:10 EDT Appointment [facility] [place] [address] Zak Solorzano MD [address] [place] [address], [address] [place] [address] documented as of this encounter Procedures Procedure Name Priority Date/Time Associated Diagnosis Comments PETERSON VF 24-2 STANDARD - OU - BOTH EYES Routine 10/08/2021 9:48 EDT Primary open angle glaucoma (POAG) of both eyes, mild stage documented in this encounter Results * PETERSON VF 24-2 STANDARD - OU - BOTH EYES (10/08/2021 9:48 EDT) Narrative [facility] POINT OF CARE - 10/08/2021 9:48 EDT See interpretation / assessment in main note. Blake Doran MD OPHTH VISUAL FIELD [facility] POINT OF CARE documented in this encounter Visit Diagnoses Diagnosis Primary open angle glaucoma (POAG) of both eyes, mild stage- Primary Nuclear sclerosis of both eyes documented in this encounter Eye Exam Visual Acuity (Snellen - Linear) Right eye Left eye Dist cc 20/20 -2 20/20 -1 Correction: Glasses Tonometry (Applanation, 9:16) Right eye Left eye Pressure 19 19 Pupils Dark Light Shape APD Right eye 5 3 Round None Left eye 5 3 Round None Extraocular Movement Right eye Left eye Full Full Neuro/Psych Oriented x3: Yes Mood/Affect: Normal External Exam Right eye Left eye External [...] 0.85 Macula Normal Normal Vessels Normal Normal Wearing Rx Sphere Cylinder [place] Add Right eye +0.25 +0.25 139 +2.50 Left eye -2.00 +0.50 095 +2.50 Type: PAL Care Teams Enrobing Machine Corder Relationship Specialty Start Date End Date Viola Dave MD [address] [place] [phone] PCP - General 05/29/21 02/26/23 documented as of this encounter
--- OUTSIDE RECORDS SUMMARY | 2024-04-13 08:45 | XMS_ITS | Encounter Summary ---
Author Organization [facility] Address [address] [place] [address] Care Team Providers Care Technology Architect Name Role Phone Unknown, Provider Primary Care Provider Encounter Details Date Type Department Care Team (Late st Contact Info) Description 01/19/2024 Orders Only [facility] Gastroenterology - [address] [id number] Zak Solorzano MD [address] [facility], [address] [place] [address] Social History Tobacco Use Types [...] Dispensed Refills Start Date End Da te bisacodyL (DULCOLAX) 5 mg EC tablet Take as directed prior to procedure (see provided instructions). 4 Tablet 01/19/2024 07/17/2024 polyethylene glycol (MIRALAX) 17 gram/dose powder Dissolve mixture and drink as directed prior to procedure (see provided instructions). 238 g 01/19/2024 07/17/2024 documented in this encounter Progress Notes * Sara Latham RN - 01/19/2024 8163 EDT Prescription for colonoscopy prep sent to patient's preferred pharmacy for 04/22/24 colonoscopy. documented in this encounter Plan of Treatment Upcoming Encounters Date Type Department Care Team (Late st Contact Info) Description 04/22/2024 8:10 EDT Appointment [facility] Endoscopy - [address] [address] Zak Solorzano MD [address] [facility], [address] [place] [phone] documented as of this encounter Visit Diagnoses Not on filedocumented in this encounter Care Teams Technology Architect Relationship Specialty Start Date End Date Unknown, Provider, PCP - General 02/27/23 documented as of this encounter
--- OUTSIDE RECORDS SUMMARY | 2024-04-13 08:45 | XMS_ITS | Encounter Summary ---
Author Organization [facility] Address [address] [place] [address] Care Team Providers Care Superintendent Geophysical Laboratory Name Role Phone Unknown, Provider Primary Care Provider Encounter Details Date Type Department Care Team (Late st Contact Info) Description 10/22/2023 Lab Requisition [facility] Pathology & Laboratory Medicine - [facility] [address] [place] [address] Outr Resulting Lab, Provider Social History Tobacco Use Types Packs/Day Years [...] Contact Info) Description 04/22/2024 8:10 EDT Appointment [facility] Endoscopy - [facility] [address] [place] [address] Zak Solorzano MD [address] [facility], [address] [place] [phone] documented as of this encounter Procedures Procedure Name Priority Date/Time Associated Diagnosis Comments PSA TOTAL, DIAGNOSTIC Routine 10/22/2023 9:05 EDT documented in this encounter Results * (ABNORMAL) PSA TOTAL, DIAGNOSTIC (10/22/2023 9:05 EDT) PSA 7.0(H) <=4.5 ng/mL 10/22/2023 22:40 EDT [facility] Blood VENOUS BLOOD / Unknown 10/22/2023 9:05 EDT 10/22/2023 21:42 EDT Narrative [facility] - 10/22/2023 22:40 EDT NOTE: Serum PSA concentration should not be interpreted as absolute evidence for the presence or absence of malignant disease. Assayed on Siemens ADVIA Centaur XPT using chemiluminescent technology.??Values obtained by using different assay methods cannot be used interchangeably. Provider Outr Resulting Lab CHEMISTRY & BLOOD GAS ORDERABLES [facility] [address] [place], [place] [phone] documented in this encounter Visit Diagnoses Not on filedocumented in this encounter Care Teams Superintendent Geophysical Laboratory Relationship Specialty Start Date End Date Unknown, Provider, PCP - General 02/27/23 documented as of this encounter
--- OUTSIDE RECORDS SUMMARY | 2024-04-13 08:45 | XMS_ITS | Clinical Summary ---
Author Organization [facility] Address [address] [place] [address] Care Team Providers Care Line Repairer Name Role Phone Unknown, Provider Primary Care Provider [phone] Allergies Active Allergy Reactions Criticality Noted Date Comments Twpniwr-Qgm-Kxz Reductase Inhibitors Other (See Comments) 08/09/2015 Limb [...] both eyes 07/10/2021 Hx of LASIK 07/10/2021 Encounters Date Type Department Care Team Description 01/19/2024 Orders Only [facility] Gastroenterology - [place] [address] [place] [address] Zak Solorzano MD from Last 3 Months Immunizations Name Administration Dates Next Due Covid-19 mRNA Vaccine (PFIZE R COVID-19) PF 0.3 ml IM (12 yrs+) 09/28/2020,09/07/2020 Surgical History Surgery Date Site/Laterality Comments KIDNEY REMOVAL Left KNEE SURGERY Right meniscus ACHILLES TENDON SURGERY Right TONSILLECTOMY EYE SURGERY LASIK ~2001 Bilateral Medical History Medical History Date Comments Hepatitis A Malaria Chronic kidney disease donated k idney Other states following surgery of eye and adnexa Glaucoma Family History Medical History Relation Comments Breast Cancer Neg Hx Colon Cancer Neg Hx Colon Polyps Neg Hx Endometrial Cancer Neg Hx Esophageal Cancer Neg Hx Ovarian Cancer Neg Hx Pancreatic Cancer Neg Hx Rectal Cancer Neg Hx Stomach Cancer Neg Hx Relation Status Comments Father Mother Alive Social History Tobacco Use Types Packs/Day Years [...] 11:54 EST Sexual Orientation Not on file Obstetrics History Last Filed Vital Signs Vital Sign Reading [...] Body Mass Index 27.32 10/06/2018 1339 EDT Plan of Treatment Upcoming Encounters Date Type Department Care Team (Late st Contact Info) Description 04/22/2024 8:10 EDT Appointment [facility] Endoscopy - [address] [address] Zak Solorzano MD [address] [facility] [address] [place] [phone] Health Maintenance Due Date Last Done Comments Hepatitis C Screen 1955 Cologuard (Colon Cancer Screening) 2002 FIT Test (Colon Cancer Screening) 2002 Sigmoidoscopy (Colon Cancer Screening) 2002 RSV Immunization ( o r 60+ Years) (1 - 1-dose 60+ series) 2017 Fall Risk Screening 2022 Colonoscopy (Colon Cancer Screening) 10/07/2023 0408/2018 Colorectal Cancer Screening 10/07/2023 COVID-19 Vaccine ( season) 2024, 09/07/2020 Procedures Procedure Name Priority Date/Time Associated Diagnosis [...] ??Total sedation time was 23 ?? minutes. [place] Bowel Prep Right Colon: 3 ? Transverse [...] Recently Relevant to Health Maintenance Care Teams Line Repairer Relationship Specialty Start Date End Date Unknown, Provider, PCP - General 02/27/23
--- OUTSIDE RECORDS SUMMARY | 2024-04-13 08:45 | XMS_ITS | Encounter Summary ---
Author Organization [facility] Address [address] [place] [address] Care Team Providers Care Senior Data Integration Developer Name Role Phone Unknown, Provider Primary Care Provider [phone] Reason for Visit * Reason Comments Glaucoma Encounter Details Date Type Department Care Team (Late st Contact Info) Description 05/26/2023 14:45 EST Office Visit [facility] Ophthalmology - [address] [id number] Blake Doran MD [address] [place] [address], [address] [place] [address] Social History Tobacco Use Types [...] Progress Notes * Blake Doran MD - 05/26/2023 5374 EST Chief Complaint Patient presents with ??? Glaucoma HPI 5 M: IOP, HVF 24-2 FAST OU--POAG OU. Pt started taking timolol OU BID --vision needs upgrade needed- Pain no- floaters no- flashes no- NOT DM HPI :The patient is a 68 y.o. male Right Eye: NL Left Eye: NL Visual Aid: Glasses Current Rx Age Location: Both eyes Pain: 0 - No pain Quality: Severity: Mild Duration: Years Timing: Constant Lasts: Continuous Context: 5 M: IOP, HVF 24-2 FAST OU--POAG OU. Pt started taking timolol OU BID --vision needs upgrade needed- Pain no- floaters no- flashes no- NOT DM Modifying factors: Associated Signs & Symptoms: Attestation: ROS Constitutional: NL ENT/Mouth NL Cardiovascular: NL Respiratory: Gastrointestinal: Genitourinary: Musculoskeletal: Integumentary: Neurologic: NL Psychiatric: Endocrine: NL Hematologic: Immunologic: Drug Allergy Folder Operator: Exposures: Other: Attestation: Allergies include: Umxuxei-kvf-swb reductase inhibitors and Sulfa (sulfonamide antibiotics) Patient Active Problem List Diagnosis ??? Primary open angle glaucoma (POAG) of both eyes, mild stage ??? Nuclear sclerosis of both eyes ??? Hx of LASIK Outpatient Medications Marked as Taking for the 05/26/23 encounter (Office Visit) with Blake Doran MD [...] smoked. He quit smokeless tobacco use about 20 years ago. His smokeless tobacco use included chew. He reports current drug use. Drug: Marijuana. He reports that he does not drink alcohol. Recent HbA1c: No results found for: HGBA1C Base Eye Exam Visual Acuity (Snellen - Linear) Right Left Dist cc 20/20 20/25 Tonometry (Applanation, 14:40) Right Left Pressure 13 14 Pupils Dark Light Shape React APD Right 4 3 Round Brisk None Left 4 3 Round Brisk None Visual Buckley Right Left Full Restrictions Partial outer inferior temporal deficiency Extraocular Movement Right Left Full, Ortho Full, Ortho Neuro/Psych Oriented x3: Yes Mood/Affect: Normal Slit Lamp and Fundus Exam External Exam Right Left External Normal Normal Slit Lamp Exam Right Left Lids/Lashes Normal Normal Conjunctiva/Sclera White and quiet White and quiet Cornea Clear Clear Anterior Chamber Deep and quiet Deep and quiet Iris Round and reactive Round and reactive Lens 2-3+ NS 3+ NS Vitreous PVD, clear Clear Fundus Exam Right Left Disc to rim inferior to rim inferior C/D Ratio 0.9 0.85 Macula Normal Normal Vessels Normal Normal Refraction Wearing Rx Sphere Cylinder Buffalo Add Right +0.25 +0.25 139 +2.50 Left -2.00 +0.50 095 +2.50 Type: PAL IMPRESSION & PLAN: 1. Primary open angle glaucoma of both eyes, mild stage -- referred from optometry (Elaine, OD at [facility]), FHx in siblings, mother and grandmother -- clearly cupped R > L -- HVF 24-2 FAST OU today (05/29) reliable, early arcuate OU, R stable, L slight worse vs 07/28 levels -- OCT NFL OU (07/28)inferior > superior thinning R > L -- note pt myopic prior to LASIK, so some of this may be anomalous nerve structure -- D/W pt, IOP continues controlled on rx, exam and tests stable, cont rx but low threshold to add rx given his younger age -- pt comes from [place], transport is difficult for him, but he understands importance of care, mika given his FHx, asks for year F/U -- F/U 9 M: IOP, HVF 24-2 FAST OU, dilate, OCT NFL OU ON: 0.9 / 0.85, to rim inf OU -- no APD Tmax: CCT: 518 / 539 -- hx of LASIK OU Gonio: Open CBB to SS, 1+ pigment OU (07/28) VF: early superior arc / early superior arc (05/29) OCT: 55 / 59 (07/28) Surg: none [...] Contact Info) Description 04/22/2024 8:10 EDT Appointment [facility] Endoscopy - [address] [address] Zak Solorzano MD [address] [place] [address], [address] [place] [address] documented as of this encounter Procedures Procedure Name Priority Date/Time Associated Diagnosis Comments PETERSON VF 24-2 FAST - OU - BOTH EYES Routine 05/26/2023 15:50 EST Primary open angle glaucoma (POAG) of both eyes, mild stage documented in this encounter Results * PTEERSON VF 24-2 FAST - OU - BOTH EYES (05/26/2023 15:50 EST) Narrative [facility] OPHTHALMOLOGY - 05/26/2023 15:50 EST See interpretation / assessment in main note. Blake Doran MD OPHTH VISUAL FIELD [facility] OPHTHALMOLOGY documented in this encounter Visit Diagnoses Diagnosis Primary open angle glaucoma (POAG) of both eyes, mild stage- Primary Nuclear sclerosis of both eyes documented in this encounter Eye Exam Visual Acuity (Snellen - Linear) Right eye Left eye Dist cc 20/20 20/25 Tonometry (Applanation, 14:40) Right eye Left eye Pressure 13 14 Pupils Dark Light Shape React APD Right eye 4 3 Round Brisk None Left eye 4 3 Round Brisk None Visual Buckley Right eye Left eye Full Restrictions Partial outer in ferior temporal deficiency Extraocular Movement Right eye Left eye Full, Ortho Full, Ortho Neuro/Psych Oriented x3: Yes Mood/Affect: Normal External Exam Right eye Left eye External Normal Normal Slit Lamp Exam Right eye Left eye Lids/Lashes Normal Normal Conjunctiva/Sclera White and quiet White and alfredito et Cornea Clear Clear Anterior Chamber Deep and quiet Deep and quiet Iris Round and reactive Round and chriss ctive Lens 2-3+ NS 3+ NS Anterior Vitreous PVD, clear Clear Fundus Exam Right eye Left eye Disc to rim inferior to rim inferior C/D Ratio 0.9 0.85 Macula Normal Normal Vessels Normal Normal Wearing Rx Sphere Cylinder Buffalo Add Right eye +0.25 +0.25 139 +2.50 Left eye -2.00 +0.50 095 +2.50 Type: PAL Care Teams Senior Data Integration Developer Relationship Specialty Start Date End Date Unknown, Provider, PCP - General 02/27/23 documented as of this encounter
--- OUTSIDE RECORDS SUMMARY | 2024-04-13 08:45 | XMS_ITS | Encounter Summary ---
Author Organization [facility] Address [address] [place] [address] Care Team Providers Care Law Enforcement Director Name Role Phone Viola Dave MD Primary Care Provider Reason for Visit * Reason Comments Elevated PSA Encounter Details Date Type Department Care Team (Late st Contact Info) Description 06/13/2021 9:30 EST Office Visit [facility] Urology - [facility] [address] [place] [address] Urology, Ultrasound Elevated PSA (Primary Dx) Social History Tobacco [...] as of this encounter Progress Notes * Robel Pruitt - 06/13/2021 0930 EST Prostate ultrasound and biopsy performed 06/13/2021 documented in this encounter Plan of Treatment Upcoming Encounters Date Type Department Care Team (Late st Contact Info) Description 04/22/2024 8:10 EDT Appointment [facility] Endoscopy - [address] [address] Zak Solorzano MD [address] [facility], [address] [place] [phone] documented as of this encounter Visit Diagnoses Diagnosis Elevated PSA- Primary Elevated prostate specific antigen (PSA) documented in this encounter Care Teams Law Enforcement Director Relationship Specialty Start Date End Date Viola Dave MD [address] [place] [phone] PCP - General 05/29/21 02/26/23 documented as of this encounter
--- OUTSIDE RECORDS SUMMARY | 2024-04-13 08:45 | XMS_ITS | Encounter Summary ---
Author Organization [facility] Address [address] [place] [address] Care Team Providers Care Director Of Patient Financial Services Name Role Phone Unknown, Provider Primary Care Provider Reason for Visit * Reason Onset Date Comments Medications Refill 04/07/2023 Encounter Details Date Type Department Care Team (Late st Contact Info) Description 04/07/2023 Refill [facility] Ophthalmology - [address] [address] Blake Doran MD [address] [place] [address], [address] [place] [address] Medications Refill Social History Tobacco [...] both eyes 2 times daily. 30 mL 04/08/2023 2023 documented in this encounter Miscellaneous Notes * Telephone Encounter - Mahogany Silvestre - 04/07/2023 1307 EDT Medication Refill Medication(s) Requested: timolol (TIMOPTIC) 0.5 % ophthalmic solution Pharmacy:[facility] [place] Is patient out of medication? yes 30 day supply/ 90 day supply: 90 Follow up appointment: 05.26.23 Please remind the patient that it can take 24-48 hours for the med to be refilled, and to call the pharmacy to make sure the refill is available before driving there. documented in this encounter Plan of Treatment Upcoming Encounters Date Type Department Care Team (Late st Contact Info) Description 04/22/2024 8:10 EDT Appointment [facility] Endoscopy - [address] [address] Zak Solorzano MD [address] [facility], [address] [place] [phone] documented as of this encounter Visit Diagnoses Not on filedocumented in this encounter Discontinued Medications Medication Sig Discontinue Reason Start Date End Da te timolol (TIMOPTIC) 0.5 % ophthalmic solution Place 1 Drop into both eyes 2 times daily. Reorder 12/21/2021 04/07/2023 documented as of this encounter Care Teams Director Of Patient Financial Services Relationship Specialty Start Date End Date Unknown, Provider, PCP - General 02/27/23 documented as of this encounter
--- OUTSIDE RECORDS SUMMARY | 2024-04-13 08:45 | XMS_ITS | Encounter Summary ---
Author Organization [facility] Address [address] [place] [address] Care Team Providers Care Corn Breeder Name Role Phone Viola Dave MD Primary Care Provider Reason for Visit * Reason Onset Date Comments Medications Refill 12/20/2021 Encounter Details Date Type Department Care Team (Late st Contact Info) Description 12/20/2021 Refill [facility] [address] [place] [id number] Blake Doran MD [address] [facility], [address] [place] [address] Medications Refill Social History Tobacco [...] Drop into both eyes 2 times daily. 15 mL 5 12/21/2021 04/07/2023 documented in this encounter Miscellaneous Notes * Telephone Encounter - Kourtney Monsivais - 12/20/2021 1527 EDT Medication Refill Medication(s) Requested: timolol. 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 Currently, he has to milk pickup driver his med every 2 months, but he would like to go even less frequently. Pharmacy: [facility] in [place] Is patient out of medication? No 30 day supply/ 90 day supply: 120 Follow up appointment: last seen 4.4 Please remind the patient that it can take 24-48 hours for the med to be refilled, and to call the pharmacy to make sure the refill is available before driving there. documented in this encounter Plan of Treatment Upcoming Encounters Date Type Department Care Team (Late st Contact Info) Description 04/22/2024 8:10 EDT Appointment [facility] Endoscopy - [address] [phone] Zak Solorzano MD [address] [facility], [address] [place] [address] documented as of this encounter Visit Diagnoses Not on filedocumented in this encounter Discontinued Medications Medication Sig Discontinue Reason Start Date End Da te timolol (TIMOPTIC) 0.5 % ophthalmic solution Place 1 Drop into both eyes 2 times daily. Reorder 07/10/2021 12/20/2021 documented as of this encounter Care Teams Corn Breeder Relationship Specialty Start Date End Date Viola Dave MD [address] [place] [phone] PCP - General 11/23/21 8/23/23 documented as of this encounter
--- OUTSIDE RECORDS SUMMARY | 2024-04-13 08:46 | XMS_ITS | Encounter Summary ---
Author Organization [facility] Address [address] [place] [address] Care Team Providers Care Hard Metals Hand Engraver Name Role Phone Cassidy Pablo MD Primary Care Provider [phone] Reason for Visit * Reason Onset Date Comments New/Evolving Symptoms 07/14/2019 dull ache in urethra Encounter Details Date Type Department Care Team (Late st Contact Info) Description 07/14/2019 Telephone [facility] Urology - [facility] [address] [place], [place] [phone] Scar Osorio MD [address] [facility], [address] [place] [address] New/Evolving Symptoms (dull ache in urethra ) Social History Tobacco Use Types Packs/Day Years Used Date Smoking Tobacco: Never Smokeless Tobacco: Former Chew Quit: 2002 Alcohol Use Standard Drinks/Week Comments No 0 (1 standard drink = 0.6 oz pur e alcohol) quit Sex and Gender Information Value Date Recorded [...] encounter Miscellaneous Notes * Telephone Encounter - Kat Omer RN - 07/23/2019 1529 EST UA and culture negative for infection. TC to patient to discuss and get an update on his symptoms, left message to return call * Telephone Encounter - Annia Garcia RN - 07/14/2019 1507 EST Tc to pt who reports dull ache to urethra and rectum but pt admits he also has chronic hemorrhoids.Pt reports an increase in urinary frequency and nocturia recently. Pt did not f/u with , as advised, in [place] and still needs his Psa repeated. Advised pt to have urine cx done at [facility] and to hold off on the Psa until these acute symptoms resolve. Pt denies fever or hematuria. * Telephone Encounter - Francesca Pantoja - 07/14/2019 1332 EST Patient calling about new symptoms. Has been having a dull ache in his urethra. Wondering what he should do. Not sure if he may have a Hemorid. Please call to discuss. documented in this encounter Plan of Treatment Upcoming Encounters Date Type Department Care Team (Late st Contact Info) Description 04/22/2024 8:10 EDT Appointment [facility] Endoscopy - [facility] [address] [place] [address] Zak Solorzano MD [address] [facility], [address] [place] [address] documented as of this encounter Visit Diagnoses Diagnosis Dysuria- Primary documented in this encounter Care Teams Hard Metals Hand Engraver Relationship Specialty Start Date End Date Cassidy Pablo MD [address] [place] [address] [address] [place] [address] PCP - General 12/21/14 05/28/21 documented as of this encounter
--- OUTSIDE RECORDS SUMMARY | 2024-04-13 08:46 | XMS_ITS | Encounter Summary ---
Author Organization [facility] Address [address] [place] [address] Care Team Providers Care Ship Carpenter Name Role Phone Cassidy Palbo MD Primary Care Provider [phone] Reason for Visit * Reason Comments Cardiac Testing * Cardiology (STAT) - Closed Specialty Diagnoses / Procedures Referred By Contpam t Referred To Contact Diagnoses Palpitations Procedures HOLTER MONITOR Brad Moore MD Referral ID Status Reason Start Date Expiration Date Visits Re quested Visits Authorized [id number] Closed 09/17/2018 1 1 Encounter Details Date Type Department Care Team (Late st Contact Info) Description 09/17/2018 14:30 EDT Procedure visit [facility] Cardiology - [place] [address] Martin Joy MD [address] [place] [address] Zoe France Palpitations (Primary Dx) Discharge Disposition: Auto Discharge Social History Tobacco Use Types Packs/Day Years [...] No 11/10/2017 documented as of this encounter Discharge Disposition Disposition Code Departure Means Destination Auto Discharge documented in this encounter Plan of Treatment Upcoming Encounters Date Type Department Care Team (Late st Contact Info) Description 04/22/2024 8:10 EDT Appointment [facility] Endoscopy - [facility] [address] [place], [place] [phone] Zak Solorzano MD [address] [facility], [address] [place] [address] documented as of this encounter Procedures Procedure Name Priority Date/Time Associated Diagnosis Comments PROCEDURE REPORTS - SCANNED 09/28/2018 11:05 EDT HOLTER MONITOR Routine 09/17/2018 14:52 EDT Palpitations documented in this encounter Results * PROCEDURE REPORTS - SCANNED (09/28/2018 11:05 EDT) 09/28/2018 11:0 5 EDT Scan 2 Lockstitch Collar Setter PROCEDURE/MINOR TALON GICAL ORDERABLES * HOLTER MONITOR (09/17/2018 14:52 EDT) 09/17/2018 14:5 2 EDT Narrative [facility] EKG - 09/28/2018 10:58 EDT ? [facility] ? Test Date: ?2018-09-17 Pat Name: ? TALIA HO ? Department: ? Room: ? Gender: ? Male ? Refrigeration Engineer: ?? [id number] : ?1955 ? Requested By: NASRA Guillen Order Number: [id number] ? [place] YOST: ?? DIMITRI HALL SA, MD ? Interpretive Statements 24 hour holter for palpitations Baseline rhythm: Sinus rhythm Avg/max/min HR: 69/125/43 Ventricular ectopy: Infrequent PVCs (0.2%) Atrial ectopy: Rare atrial ectopy primarily in form of PACs with 2 brief runs of supraventricular tachycardia (longest 8 beats) Diary symptoms: Diary triggers correlated with atrial and ventricular ectopy Summary Statement: Infrequent atrial and ventricular ectopy which correlated with diary triggers This is a preliminary report. ??Edited by JERMAIN DOW MD on 09-25-2018 8:54:58 EDT. I reviewed the tracing and have either agreed or edited the findings in this report. Electronically Signed On 09-28-2018 10:58:50 EDT by DIMITRI HALL SA, MD. Procedure Note Dimitri Rosenberg Sa, MD, MD - 09/28/2018 [facility] Test Date: 2018-09-17 Pat Name: TALIA HO Department: Room: Gender: Male Refrigeration Engineer: [id number] : 1955 Requested By: NASRA Guillen Order Number: [id number] [place] MD: DIMITRI BRAVO Interpretive Statements 24 hour holter for palpitations Baseline rhythm: Sinus rhythm Avg/max/min HR: 69/125/43 Ventricular ectopy: Infrequent PVCs (0.2%) Atrial ectopy: Rare atrial ectopy primarily in form of PACs with 2 briefruns of supraventricular tachycardia (longest 8 beats) Diary symptoms: Diary triggers correlated with atrial and ventricularectopy Summary Statement: Infrequent atrial and ventricular ectopy whichcorrelated with diary triggers This is a preliminary report. Edited by JERMAIN DOW MD on 09-25-2018 8:54:58 EDT. I reviewed the tracing and have either agreed or edited the findings inthis report. Electronically Signed On 09-28-2018 10:58:50 EDT by DIMITRI MAYNARD SA, MD. Brad Moore MD CARDIAC ECG ORDERABL ES [facility] EKG documented in this encounter Visit Diagnoses Diagnosis Palpitations- Primary documented in this encounter Care Teams Ship Carpenter Relationship Specialty Start Date End Date Cassidy Pablo MD [address] [phone] PCP - General 12/21/14 05/28/21 documented as of this encounter
--- OUTSIDE RECORDS SUMMARY | 2024-04-13 08:46 | XMS_ITS | Encounter Summary ---
Author Organization [facility] Address [address] [place] [address] Care Team Providers Care Dry Janitor Name Role Phone Cassidy Pablo MD Primary Care Provider [phone] Reason for Visit * Reason Comments Laceration l 1st finger Encounter Details Date Type Department Care Team (Latest Contact Info) Description 08/09/2015 9:12 EST - 08/09/2015 11:37 EST Hospital Encounter [facility] - [address] [id number] Jet Torres MD [address] [place] [phone] Laceration of thumb, left, initial encounter (Primary Dx) Discharge Disposition: Home or Self Care Social History Tobacco Use Types Packs/Day Years Used Date Smoking Tobacco: Never Alcohol Use Standard Drinks/Week Comments No 0 (1 standard drink = 0.6 oz pur e alcohol) quit Sex and Gender Information Value Date Recorded Sex Assigned at Not on file Gender Identity Male 08/27/2019 11:54 EST Sexual Orientation Not on file documented as of this encounter Last Filed Vital Signs Vital Sign Reading Time Taken Comments Blood Pressure 130/90 08/09/2015 0937 EST Pulse 56 08/09/2015 0937 EST Temperature 36.3 ??C (97.3 ??F) 08/09/2015 0937 EST Respiratory Rate 16 08/09/2015 0937 EST Oxygen Saturation - - Inhaled Oxygen Concentration - - Weight - - Height - - Body Mass Index - - documented in this encounter Discharge Diagnoses Diagnosis S61.012A Laceration without foreign body of left thumb without damage to nail, initial encounter-S61.012A[ICD-10-CM] documented in this encounter Discharge Instructions * Attachments The following attachments cannot be sent through Care Everywhere. * HAND LACERATION: STITCHES ([place]) documented in this encounter Medications at Time of Discharge Medication Sig Dispensed Refills Start Date End Date aspirin 325 mg tablet Take 325 mg by mouth daily 06/04/2018 documented as of this encounter Discharge Disposition Disposition Code Departure Means Destination Home or Self Care Walk-out Home documented in this encounter ED Notes * Jet Torres MD - 08/09/2015 1242 ESTAssociated Order(s): LACERATION REPAIR DOS: 08/09/2015 Chief Complaint Patient presents with ??? Laceration l 1st finger The patient is a 60 y.o. male who presents today with Laceration Laceration patient presents for evaluation of injury to his left thumb. He was cutting to by fours on a table saw this morning when he nicked the pad of his thumb on the blade. This was distal to the IP joint. He treated this with pressure, this occurred just before presentation. No other injuries were sustained he is otherwise in a normal state of good health. Past history of self-limited courses of hep A and malaria No preservative family history of any immune disorder coagulopathy or history of adverse reaction local anesthetic. Review of Systems Constitutional: Negative for fever. Respiratory: Negative. Cardiovascular: Negative. Gastrointestinal: Negative for nausea. Musculoskeletal: Negative. Skin: Positive for wound. Neurological: Positive for weakness. Numbness: no weaknessThere is slight numbness in the pad of the left thumb distal to the laceration. No current facility-administered medications for this encounter. Current Outpatient Prescriptions Medication Sig Dispense Refill ??? aspirin 325 mg tablet Take 325 mg by mouth daily Allergies Allergen Reactions ??? Kpzvkbt-Fbr-Zrt Reductase Inhibitors Other (See Comments) Limb pain ??? Sulfa (Sulfonamide Antibiotics) Other (See Comments) Johann Jovani syndrome There are no active problems to display for this patient. Past Medical History Diagnosis Date ??? Hepatitis A ??? Malaria History Substance Use Topics ??? Smoking status: Never Smoker ??? Smokeless tobacco: Not on file ??? Alcohol Use: No Comment: quit History reviewed. No pertinent family history. BP 130/90 mmHg Pulse 56 Temp(Src) 97.3 ??F (36.3 ??C) (Tympanic) Resp 16 Physical Exam HENT: Head: Normocephalic. slightly anxious but otherwise pleasant and comfortable mesomorphic individual. Tendon functions are intact in the left thumb, he has sensation at the end of the thumb but approximately 1 cm?? distal to the laceration is not, there is a deep laceration in a horizontal plane distal to the IP joint through the pad of finger. He does not have pain with axial percussion of the thumb. No other injuries were sustained. This is distal to the joint does not involve any nail structures Some mild slow bleeding Multiple loose tags of skin especially on the ulnar aspect of the wound Consult orders: None PCP: Cassidy Pablo No results found for this visit on 08/09/15. No orders to display Radiology orders: None Imaging Results None No orders to display Laceration Date/Time: 08/09/2015 12:45 Performed by: JET TORRES Authorized by: JET TORRES Consent: Verbal consent obtained. Risks and benefits: risks, benefits and alternatives were discussed Consent given by: patient Patient understanding: patient states understanding of the procedure being performed Body area: upper extremity Location details: left thumb Laceration length: 3 cm Foreign bodies: no foreign bodies Tendon involvement: none Nerve involvement: superficial Vascular damage: no Anesthesia: digital block Local anesthetic: lidocaine 2% with epinephrine Anesthetic total: 2 ml Irrigation solution: saline Irrigation method: jet lavage Amount of cleaning: extensive Debridement: moderate Skin closure: 5-0 Prolene Number of sutures: 9 Technique: simple Approximation: close Approximation difficulty: complex Dressing: pressure dressing Patient tolerance: Patient tolerated the procedure well with no immediate complications Course: A medical screening exam was performed. Disposition: Discharged The patient's pain was managed to an adequate level weighing risk vs. benefit of further medications. Upon departure from [facility], the patient's pain was 2 on a zero to ten scale. Condition at departure from the [facility] : Good Final diagnoses: Laceration of thumb, left, initial encounter Laceration fairly deep into the pad of the finger on the radial side becoming more shallow with more widespread superficial loss of avulsed skin on the ulnar side, this did not go down to the bone orany tendon structures. Closed dressed with pressure dressing signs symptoms that would merit urgent evaluation were reviewed ongoing wound care and suture removal were discussed MDM 08/09/2015 12:42 * Nia Bond MA - 08/09/2015 1135 EST Pt wound dressed with telfa and tube gauze. * Nia Bond MA - 08/09/2015 1004 EST Suture tray set up for provider as requested. * Nia Bond MA - 08/09/2015 0953 EST Pt wound irrigated with 500cc NS. * Mary Arana RN - 08/09/2015 0952 EST Pt received laceration in left anterior distal thumb from table saw about 45 minutes ago. Last tetanus within 10 yrs. Moved a year ago to [place] from [place], has PCP but but hasn't seen her yet. Denies numbness/tingling, states it is throbbing. documented in this encounter Plan of Treatment Upcoming Encounters Date Type Department Care Team (Late st Contact Info) Description 04/22/2024 8:10 EDT Appointment [facility] - [address] [address] Zak Solorzano MD [address] [place] [address], [address] [place] [address] documented as of this encounter Procedures Procedure Name Priority Date/Time Associated Diagnosis Comments LACERATION REPAIR Routine 08/09/2015 12: 47 EST Laceration of thumb, left, initial encounter documented in this encounter Results * LACERATION REPAIR (08/09/2015 12:47 EST) Narrative [facility] EKG - 08/09/2015 12:47 EST Jet Torres MD ? 08/09/2015 12:47 DOS: 08/09/2015 Chief Complaint Patient presents with ? ? Laceration ??l 1st finger The patient is a 60 y.o. male who presents today with Laceration Laceration patient presents for evaluation of injury to his left thumb. He was cutting to by fours on a table saw this morning when he nicked the pad of his thumb on the blade. This was distal to the IP joint. He treated this with pressure, this occurred just before presentation. No other injuries were sustained he is otherwise in a normal state of good health. Past history of self-limited courses of hep A and malaria No preservative family history of any immune disorder coagulopathy or history of adverse reaction local anesthetic. Review of Systems Constitutional: Negative for fever. Respiratory: Negative. ?? Cardiovascular: Negative. ?? Gastrointestinal: Negative for nausea. Musculoskeletal: Negative. ?? Skin: Positive for wound. Neurological: Positive for weakness. Numbness: no weaknessThere is slight numbness in the pad of the left thumb distal to the laceration. No current facility-administered medications for this encounter. Current Outpatient Prescriptions Medication Sig Dispense Refill ? ? aspirin 325 mg tablet Take 325 mg by mouth daily ?? Allergies Allergen Reactions ? ? Yjmsrdc-Iqo-Voh Reductase Inhibitors Other (See Comments) ??Limb pain ? ? Sulfa (Sulfonamide Antibiotics) Other (See Comments) ??Johann Jovani syndrome There are no active problems to display for this patient. Past Medical History Diagnosis Date ? ? Hepatitis A ? Malaria ?? History Substance Use Topics ? ? Smoking status: Never Smoker ? Smokeless tobacco: Not on file ? ? Alcohol Use: No ?? Comment: quit History reviewed. No pertinent family history. BP 130/90 mmHg Pulse 56 Temp(Src) 97.3 ??F (36.3 ??C) (Tympanic) Resp 16 Physical Exam HENT: Head: Normocephalic. slightly anxious but otherwise pleasant and comfortable mesomorphic individual. Tendon functions are intact in the left thumb, he has sensation at the end of the thumb but approximately 1 cm?? distal to the laceration is not, there is a deep laceration in a horizontal plane distal to the IP joint through the pad of finger. He does not have pain with axial percussion of the thumb. No other injuries were sustained. This is distal to the joint does not involve any nail structures Some mild slow bleeding Multiple loose tags of skin especially on the ulnar aspect of the wound Consult orders: None PCP: Cassidy Pablo No results found for this visit on 08/09/15. No orders to display Radiology orders: None Imaging Results ?? None No orders to display Laceration Date/Time: 08/09/2015 12:45 Performed by: JET TORRES Authorized by: JET TORRES Consent: Verbal consent obtained. Risks and benefits: risks, benefits and alternatives were discussed Consent given by: patient Patient understanding: patient states understanding of the procedure being performed Body area: upper extremity Location details: left thumb Laceration length: 3 cm Foreign bodies: no foreign bodies Tendon involvement: none Nerve involvement: superficial Vascular damage: no Anesthesia: digital block Local anesthetic: lidocaine 2% with epinephrine Anesthetic total: 2 ml Irrigation solution: saline Irrigation method: jet lavage Amount of cleaning: extensive Debridement: moderate Skin closure: 5-0 Prolene Number of sutures: 9 Technique: simple Approximation: close Approximation difficulty: complex Dressing: pressure dressing Patient tolerance: Patient tolerated the procedure well with no immediate complications Course: ?? A medical screening exam was performed. Disposition: Discharged The patient's pain was managed to an adequate level weighing risk vs. benefit of further medications. Upon departure from [facility], the patient's pain was 2 on a zero to ten scale. Condition at departure from the [facility] : Good Final diagnoses: Laceration of thumb, left, initial encounter Laceration fairly deep into the pad of the finger on the radial side becoming more shallow with more widespread superficial loss of avulsed skin on the ulnar side, this did not go down to the bone or any tendon structures. Closed dressed with pressure dressing signs symptoms that would merit urgent evaluation were reviewed ongoing wound care and suture removal were discussed [facility] 08/09/2015 12:42 Jet Torres MD PROCEDURE/ROCIO Jerry SURGICAL ORDERABLES [facility] EKG documented in this encounter Visit Diagnoses Diagnosis Laceration of thumb, left, initial encounter- Primary documented in this encounter Historical Medications * This list may reflect changes made after this encounter. Medication Sig Dispensed Refills Start Date End Date aspirin 325 mg tablet Take 325 mg by mouth daily 06/04/2018 added in this encounter Care Teams Dry Janitor Relationship Specialty Start Date End Date Cassidy Pablo MD [address] [place] [phone] PCP - General 12/21/14 05/28/21 documented as of this encounter
--- OUTSIDE RECORDS SUMMARY | 2024-04-13 08:46 | XMS_ITS | Encounter Summary ---
Author Organization [facility] Address [address] [place] [address] Care Team Providers Care Director Marketing Name Role Phone Cassidy Griggs MD Primary Care Provider [phone] Encounter Details Date Type Department Care Team (Late st Contact Info) Description 10/06/2018 12:42 EDT - 10/06/2018 15:17 EDT Hospital Encounter [facility] Outpatient [address] [place] [address] Jessika Cueva MD [address] [facility], [address] [place] [address] Discharge Disposition: Home or Self Care Social [...] Blood Pressure 115/81 10/06/2018 1441 EDT Pulse - - Temperature 35.7 ??C (96.3 ??F) 10/06/2018 1433 EDT Respiratory Rate 15 10/06/2018 1441 EDT Oxygen Saturation 94% 10/06/2018 1441 EDT Inhaled Oxygen Concentration - - Weight 83.9 kg (185 lb) 10/06/2018 1339 EDT Height 175.3 cm (5' 9) 10/06/2018 1339 EDT Body Mass Index 27.32 10/06/2018 1339 EDT documented in this encounter Functional Status Functional Status Response [...] 11/10/2017 documented as of this encounter Discharge Diagnoses Diagnosis Z12.11 Encounter for screening for malignant neoplasm of colon-Z12.11[ICD-10-CM] D12.0 Benign neoplasm of cecum-D12.0[ICD-10-CM] Z79.899 Other retirement (current) drug therapy-Z79.899[ICD-10-CM] documented in this encounter Medications at Time of Discharge Medication Sig Dispensed Refills Start Date End Date sildenafil citrate (VIAGRA ORAL) Take by mouth as needed. LORazepam (ATIVAN) 2 mg tablet Take 2 mg by mouth as needed for Anxiety. 07/10/2021 polyethylene glycol (GOLYTELY) 236-22.74-6.74 -5.86 gram suspensionIndications :Personal history of colonic polyps Follow instructions on 'colonoscopy preparation instructions' sheet. 1 Bottle 07/16/2018 07/10/2021 pseudoephedrine HCl (SUDAFED ORAL) Take by mouth. 07/10/2021 documented as of this encounter Discharge Disposition Disposition Code Departure Means Destination Home or Self Care documented in this encounter H&P Notes * Jessika Cueva MD, MD - 10/06/2018 1404 EDT Endoscopy Sedation for Procedure History & Physical Date: 10/06/2018 Time: 14:04 Location: 4 Endo Planned Procedure: Colonoscopy Chief Complaint/Indications for Procedure: [address] ave[address] risk screening History Previous Complication with Sedation and/or Anesthesia? No Allergies: Allergies Allergen Reactions ??? Bnrqmmq-Plc-Xig Reductase Inhibitors Other (See Comments) Limb pain ??? Sulfa (Sulfonamide Antibiotics) Other (See Comments) Johann Jovani syndrome Current Medications: Current Outpatient Medications: LORazepam (ATIVAN) 2 mg tablet polyethylene glycol (GOLYTELY) 236-22.74-6.74 -5.86 gram suspension pseudoephedrine HCl (SUDAFED ORAL) sildenafil citrate (VIAGRA ORAL) Current Facility-Administered Medications: atropine 0.1 mg/mL syringe 0.25-1 mg intravenous PRN diphenhydrAMINE (BENADRYL) injection 25 mg intravenous Once PRN flumazenil (ROMAZICON) injection 0.2 mg intravenous PRN lactated ringers (LR) infusion intravenous CONTINUOUS lidocaine (XYLOCAINE) 2 % viscous solution 15 mL oral Once PRN meperidine (PF) (DEMEROL) injection 25-200 mg intravenous Once PRN midazolam (MDV) (VERSED) injection 1-10 mg intravenous Once PRN naloxone (NARCAN) injection 0.4 mg intravenous PRN sodium chloride 0.9 % flush 3 mL intravenous PRN Past Medical History: Past Medical History: Diagnosis Date ??? Chronic kidney disease donated kidney ??? Hepatitis A ??? Malaria Social History: Past Surgical History: Procedure Laterality Date ??? ACHILLES TENDON SURGERY Right ??? KIDNEY REMOVAL Left ??? KNEE SURGERY Right meniscus ??? TONSILLECTOMY Social History Tobacco Use ??? Smoking status: Never Smoker ??? Smokeless tobacco: Former User Types: Chew Substance Use Topics ??? Alcohol use: No Comment: quit Family History: Family History Problem Relation Age of Onset ??? Breast Cancer Neg Hx ??? Colon Cancer Neg Hx ??? Colon Polyps Neg Hx ??? Endometrial Cancer Neg Hx ??? Esophageal Cancer Neg Hx ??? Ovarian Cancer Neg Hx ??? Pancreatic Cancer Neg Hx ??? Rectal Cancer Neg Hx ??? Stomach Cancer Neg Hx Review of Systems as pertinent: Physical Exam Vital Signs: BP 123/86 Temp 35.7 ??C (96.3 ??F) (Tympanic) Resp 18 Ht 175.3 cm (69) Wt 83.9 kg (185 lb) SpO2 95% BMI 27.32 kg/m?? Heart Examination: Cardiac Regularity: Regular Respiratory Examination: Respiratory Pattern: Regular Breath Sounds Right: Clear Breath Sounds Left: Clear Abdominal Examination: Soft, non-tender, bowel sounds normal, no masses, no organomegaly Additional physical exam related to the proposed procedure, patient activity, disease state and treatment as pertinent: Assessment Previous complications with sedation or anesthesia?: No Airway Concerns: None Anesthesia Classification: ASA 1 Plan: Proceed with sedation for procedure Fasting Time: Time of last liquid intake: 1030 Date of Last Liquid Intake: 10/06/18 Time of last solid intake: 1900 Date of last solid intake: 10/04/18 Patient Appropriate Candidate for Planned Sedation?: Yes Jessika Cueva MD 10/06/2018 14:04 documented in this encounter Plan of Treatment Upcoming Encounters Date Type Department Care Team (Late st Contact Info) Description 04/22/2024 8:10 EDT Appointment [facility] - [address] [address] Zak Solorzano MD [address] [facility], [address] [place] [address] documented as of this encounter Procedures Procedure Name Priority Date/Time Associated Diagnosis Comments SURGICAL PATHOLOGY Routine 10/06/2018 16 :24 EDT COLONOSCOPY PROCEDURE Routine 10/06/2018 documented in this encounter Results * SURGICAL PATHOLOGY (10/06/2018 16:24 EDT) Pathology Report: SURGICAL PATHOLOGY REPORT Reports generated via electronic interface contain original data; however they are lacking the format of the original report. Caution should be taken when reading/interpret ing unformatted reports. Name: ? VICTALIA STANLEY Diane ? Accession #: ? [id number] ? : ? 1955 (Age: 63) ??M ? Collect Date: ? 10/06/2018 ? Location: ? ENDOP ? Receive Date: ? 10/06/2018 ? Provider: JESSIKA CUEVA MD Copy to: CASSIDY GRIGGS MD ? Final Pathologic Diagnosis: A. COLON, CECUM, POLYP, BIOPSY: - ??Fragment of tubular adenoma. Document reviewed and electronically signed by: LALITHA SUTTON MD Report ??Date: 10/08/2018 14:01 By the signature above, the attending physician certifies that he/she has personally conducted a gross and/or microscopic examination of the described specimens and rendered or confirmed the above diagnosis. Specimen(s) Received: Diminutive cecal polyp Clinical History: Screening colonoscopy Gross Description: ? Received in formalin labelled with proper patient identification (initials G, D) and cecum polyp is a single fragment of pink tissue (0.2 x 0.2 x 0.1 cm). The specimen is entirely submitted in 1. YOLANDA Ashford (ASCP) 10/06/2018 4:34 PM End of Report [facility] 10/06/2018 16:2 4 EDT 10/06/2018 16:24 EDT Jessika Cueva MD PATHOLOGY ORDERABLE S [facility] [address] [place] [address] * COLONOSCOPY PROCEDURE (10/06/2018) Anatomical Region Laterality [...] ??Total sedation time was 23 ?? minutes. Paron Bowel Prep Right Colon: 3 ? Transverse [...] this record. 10/06/2018 02:31:20 PM By Jessika Cueva MD Jessika Cueva MD GI PROCEDURE ORDERA BLES documented in this encounter Visit Diagnoses Not on filedocumented in this encounter Administered Medications Inactive Administered Medications - up to 3 most recent administrations Medication Order MAR Action Action Date Dose Rate Site lactated ringers (LR) infusion 30 mL/hr, intravenous, CONTINUOUS, Starting on Fri10/06/18 at 1415, Until Fri10/06/18 at 1720, Routine, Preprocedure New Bag 10/06/2018 14:03 EDT 30 mL/hr 30 mL/hr meperidine (PF) (DEMEROL) injection 25-200 mg 25-200 mg, intravenous, ONCE PRN, 1 dose, Starting on Fri10/06/18 at 1348, Until Fri10/06/18 at 1415, Other, sedation, Routine, Intraprocedure Given 10/06/2018 14:15 EDT 50 mg midazolam (MDV) (VERSED) injection 1-10 mg 1-10 mg, intravenous, ONCE PRN, 1 dose, Starting on Fri10/06/18 at 1348, Until Fri10/06/18 at 1415, Sedation, Routine, Intraprocedure Given 10/06/2018 14:15 EDT 2 mg documented in this encounter Orders Medications Ordered That Ceferino ht Not Have Been Administered Count Last Ordered Date First Ordered Date atropine 0.1 mg/mL syringe 0.25-1 mg 1 08/2018 diphenhydrAMINE (BENADRYL) injection 25 mg 1 10/06/2018 flumazenil (ROMAZICON) injection 0.2 mg 1 0 10/06/2018 lidocaine (XYLOCAINE) 2 % vi scous solution 15 mL 1 10/06/2018 naloxone (NARCAN) injection 0.4 mg 1 2018 sodium chloride 0.9 % flush 3 mL 1 10/07/19 19 Transfer Count Last Ordered Date First Orde red Date NOTIFY PPS OF DISCHARGE COMPLETE 1 10/07/19 19 Discharge Count Last Ordered Date First Orde red Date DISCHARGE PATIENT 1 10/06/2018 documented in this encounter Care Teams Director Marketing Relationship Specialty Start Date End Date Cassidy Griggs MD [address] [address] PCP - General 12/21/14 05/28/21 documented as of this encounter
--- OUTSIDE RECORDS SUMMARY | 2024-04-13 08:46 | XMS_ITS | Encounter Summary ---
Author Organization [facility] Address [address] [place] [address] Care Team Providers Care Backup Engineer Name Role Phone Cassidy Pablo MD Primary Care Provider [phone] Encounter Details Date Type Department Care Team (Late st Contact Info) Description 07/14/2019 Orders Only [facility] - [address] [phone] Marla Bragg MD [address] [place] [address], [address] [place] [address] Dysuria (Primary Dx) Social History Tobacco Use Types [...] Contact Info) Description 04/22/2024 8:10 EDT Appointment [facility] - [facility] [address] [place], [place] [id number] Zak Solorzano MD [address] [facility], [address] [place] [phone] documented as of this encounter Visit Diagnoses Diagnosis Dysuria- Primary documented in this encounter Care Teams Backup Engineer Relationship Specialty Start Date End Date Cassidy Pablo MD [address] [facility] [address] [place] [address] PCP - General 12/21/14 05/28/21 documented as of this encounter
--- OUTSIDE RECORDS SUMMARY | 2024-04-13 08:46 | XMS_ITS | Encounter Summary ---
Author Organization [facility] Address [address] [place] [address] Care Team Providers Care Support Architect Name Role Phone Cassidy Pablo MD Primary Care Provider + [phone] Encounter Details Date Type Department Care Team (Late st Contact Info) Description 08/04/2018 Results Only [facility] [phone] Cassidy Pablo MD [address] [place] [address] Social History Tobacco Use Types Packs/Day Years [...] Contact Info) Description 04/22/2024 8:10 EDT Appointment [facility] Endoscopy - Main [place] [address] [place] [address] Zak Solorzano MD [address] [facility], [facility], [address] [place] [address] documented as of this encounter Procedures Procedure Name Priority Date/Time Associated Diagnosis Comments T3, TOTAL Routine 08/04/2018 7:48 EST T4 FREE Routine 08/04/2018 7:48 EST documented in this encounter Results * (ABNORMAL) T4 FREE (08/04/2018 7:48 EST) T4, Free 0.7(L) 0.8 - 2.2 ng/dl 08/04/2018 16:24 EST [facility] BLOOD SPECIMEN / Unknown 08/04/2018 7:48 EST 08/04/2018 15:16 EST Cassidy Pablo MD CHEMISTRY & BLOOD GAS ORDERABLES [facility] [address] [place] [address] * T3, TOTAL (08/04/2018 7:48 EST) T3, Total 130 97 - 169 ng/dl 08/04/2018 16:38 EST [facility] BLOOD SPECIMEN / Unknown 08/04/2018 7:48 EST 08/04/2018 15:16 EST Cassidy Pablo MD CHEMISTRY & BLOOD GAS ORDERABLES [facility] [address] [place] [address] documented in this encounter Visit Diagnoses Not on filedocumented in this encounter Care Teams Support Architect Relationship Specialty Start Date End Date Cassidy Pablo MD [address] [place] [address] [address] [place] [phone] PCP - General 12/21/14 05/28/21 documented as of this encounter
--- OUTSIDE RECORDS SUMMARY | 2024-04-13 08:46 | XMS_ITS | Encounter Summary ---
Author Organization [facility] Address [address] [place] [address] Care Team Providers Care Setter [employer]ines Name Role Phone Cassidy Pablo MD Primary Care Provider +1 [phone] Encounter Details Date Type Department Care Team (Late st Contact Info) Description 09/28/2020 15:10 EDT Immunization [facility] [address] [place] [address] Social History Tobacco Use Types Packs/Day Years [...] Contact Info) Description 04/22/2024 8:10 EDT Appointment [facility] Endoscopy - [facility] [address] [place], [place] [address] Zak Solorzano MD 111 [facility], [address] [place] [address] documented as of this encounter Visit Diagnoses Not on filedocumented in this encounter Orders Immunization/Injection Count Last Ordered Date First Ordered Date COVID-19 MRNA VACCINE (PFIZE R COVID-19) PF 0.3 ML IM (16 YRS+) 1 09/28/2020 documented in this encounter Care Teams Setter [employer] Relationship Specialty Start Date End Date Cassidy Pablo MD [address] [place] [address] [address] [place] [address] PCP - General 12/21/14 05/28/21 documented as of this encounter
--- OUTSIDE RECORDS SUMMARY | 2024-04-13 08:46 | XMS_ITS | Encounter Summary ---
Author Organization [facility] Address [address] [place] [address] Care Team Providers Care Retail Client Solutions Consultant Name Role Phone Cassidy Pablo MD Primary Care Provider +1 [phone] Reason for Visit * Reason Onset Date Comments Appointment Related 08/11/2018 Encounter Details Date Type Department Care Team (Late st Contact Info) Description 08/11/2018 Telephone [facility] Urology - [facility] [address] [place], [place] [address] Scar Osorio MD 111 [facility], [address] [place] [address] Appointment Related Social History Tobacco [...] encounter Miscellaneous Notes * Telephone Encounter - Nevaeh Steinberg - 08/28/2018 0945 EST Left message reminding patient to have PSA drawn at least 48 hours before his 09/01/2018 appointment. Nevaeh Steinberg 08/28/2018 9:46 * Telephone Encounter - Maricruz Núñez - 08/11/2018 1519 EST Spoke with the patient to confirm his appointment with Dr. Osorio on 09/01/18 at 3:45. * Telephone Encounter - Yahaira Simms - 08/11/2018 1206 EST Reason for Call: Appointment Related Summary/Symptoms: Pt had PSA last week and would like to see Dr. Osorio as it was elevated Please call back as soon as possible Yahaira Simms 08/11/2018 12:06 documented in this encounter Plan of Treatment Upcoming Encounters Date Type Department Care Team (Late st Contact Info) Description 04/22/2024 8:10 EDT Appointment [facility] Endoscopy - [address] [id number] Zak Solorzano MD 111 [facility], [address] [place] [address] documented as of this encounter Visit Diagnoses Not on filedocumented in this encounter Care Teams Retail Client Solutions Consultant Relationship Specialty Start Date End Date Cassidy Pablo MD [address] [place] [address] [address] [place] [address] PCP - General 12/21/14 05/28/21 documented as of this encounter
--- OUTSIDE RECORDS SUMMARY | 2024-04-13 08:46 | XMS_ITS | Encounter Summary ---
Author Organization [facility] Address [address] [place] [address] Care Team Providers Care Stone Carver Name Role Phone Cassidy Pablo MD Primary Care Provider [phone] [phone] Reason for Visit * Reason Onset Date Comments Results 06/04/2018 Encounter Details Date Type Department Care Team (Late st Contact Info) Description 06/04/2018 Telephone [facility] - [facility] [address] [place], [place] [id number] Candy Caceres NP [address] [place] [address] Results Social History Tobacco Use Types Packs/Day Years [...] encounter Miscellaneous Notes * Telephone Encounter - Maday Cruz RN - 06/05/2018 0844 EST Spoke with patient and gave him test results. He will follow up with his PCP. * Telephone Encounter - Candy Caceres FNP - 06/04/2018 2046 EST Please call patient and let him know that his TSH was elevated, meaning he may be hypothyroid. He needs to contact his primary provider for an appointment for further evaluation. The rest of the thyroid tests are pending, should be ready tomorrow. documented in this encounter Plan of Treatment Upcoming Encounters Date Type Department Care Team (Late st Contact Info) Description 04/22/2024 8:10 EDT Appointment [facility] Endoscopy - [address] [id number] Zak Solorzano MD 111 [facility], [address] [place] [phone] documented as of this encounter Visit Diagnoses Not on filedocumented in this encounter Care Teams Stone Carver Relationship Specialty Start Date End Date Cassidy Pablo MD [address] [place] [address] [address] [place] [phone] PCP - General 12/21/14 05/28/21 documented as of this encounter
--- OUTSIDE RECORDS SUMMARY | 2024-04-13 08:46 | XMS_ITS | Encounter Summary ---
Author Organization [facility] Address [address] [place] [address] Care Team Providers Care Data Miner Name Role Phone Cassidy Pablo MD Primary Care Provider +1 [phone] Encounter Details Date Type Department Care Team (Late st Contact Info) Description 08/27/2019 17:15 EST Phlebotomy Only [facility] 2 Phlebotomy [address] [place], [place] [address] Hands And Dial Inspector, Acc Phlebotomy Abnormal PSA (Primary Dx) Social History Tobacco [...] Contact Info) Description 04/22/2024 8:10 EDT Appointment [facility] Endoscopy - Main [place] [address] [place], [place] [phone] Zak Solorzano MD 111 [facility], [address] [place] [address] documented as of this encounter Procedures Procedure Name Priority Date/Time Associated Diagnosis Comments PSA TOTAL, DIAGNOSTIC Routine 08/27/2019 12:20 EST Abnormal PSA documented in this encounter Results * (ABNORMAL) PSA TOTAL, DIAGNOSTIC (08/27/2019 12:20 EST) PSA 4.9(H) 0.0 - 4.5 ng/mL 08/27/2019 14:38 EST [facility] Blood VENOUS BLOOD / Unknown Venipuncture / Unknown 08/27/2019 12:20 EST 08/27/2019 12:30 EST Narrative [facility] - 08/27/2019 14:38 EST NOTE: Serum PSA concentration should not be interpreted as absolute evidence for the presence or absence of malignant disease. Assayed on Siemens ADVIA Centaur XPT using chemiluminescent technology.??Values obtained by using different assay methods cannot be used interchangeably. Scar Osorio MD CHEMISTRY & BLOOD GA S ORDERABLES [facility] [address] [place] [address] documented in this encounter Visit Diagnoses Diagnosis Abnormal PSA- Primary Elevated prostate specific antigen (PSA) documented in this encounter Care Teams Data Miner Relationship Specialty Start Date End Date Cassidy Pablo MD [address] [place] [address] [address] [place] [phone] PCP - General 12/21/14 05/28/21 documented as of this encounter
--- OUTSIDE RECORDS SUMMARY | 2024-04-13 08:46 | XMS_ITS | Encounter Summary ---
Author Organization [facility] Address [address] [place] [address] Care Team Providers Care Superintendent Marine Name Role Phone Cassidy Pablo MD Primary Care Provider [phone] [phone] Reason for Visit * Reason Comments Follow-up F/U w/ PSA Encounter Details Date Type Department Care Team (Late st Contact Info) Description 09/24/2018 13:30 EDT Office Visit [facility] Urology - [place] [facility] [address] [place], [place] [address] Scar Osorio MD 111 [facility], [address] [place] [address] Abnormal PSA (Primary Dx) Social [...] this encounter Progress Notes * Scar Osorio MD, MD - 09/24/2018 1330 EDT Chief Complaint: Chief Complaint Patient presents with ??? Follow-up F/U w/ PSA HPI: Talia is a 63 y.o. male with an abnormal PSA. I initially saw the patient about 1 year ago withan abnormal PSA of 6.71 in September 2017. His urination since that time is stable he does have some nocturia and frequency but also drinks quite a bit of caffeine. He has seen no blood in his urine. Past surgical history significant for donor left nephrectomy 18 years ago. Family history significant for testicular cancer in his grandfather. He is following up today with a repeat PSA which was 5.02 in September 2018 Medications Current Outpatient Medications: ??? LORazepam (ATIVAN) 2 mg tablet, Take 2 mg by mouth as needed for Anxiety., Disp: , Rfl: ??? polyethylene glycol (GOLYTELY) 236-22.74-6.74 -5.86 gram suspension, Follow instructions on 'colonoscopy preparation instructions' sheet. (Patient not taking: Reported on 09/17/2018), Disp: 1 Bottle, Rfl: 0 ??? pseudoephedrine HCl (SUDAFED ORAL), Take by mouth., Disp: , Rfl: ??? sildenafil citrate (VIAGRA ORAL), Take by mouth as needed. , Disp: , Rfl: Allergies Allergies Allergen Reactions ??? Mrnhsab-Epm-Szb Reductase Inhibitors Other (See Comments) Limb pain ??? Sulfa (Sulfonamide Antibiotics) Other (See Comments) Johann Jovani syndrome Objective/Physical Exam: Vital Signs: There were no vitals taken for this visit. Exam: Constitutional: Alert, in no distress. Pulm: Normal effort, unlabored Musculoskeletal: Extremities warm without edema. Skin: Skin warm and dry. Psych: Mood and affect appropriate Impression: Patient with an abnormal PSA that has trended down from 6.7 to 5.02 over the course of a year. His lower urinary tract symptoms secondary to BPH are stable without medications. I would like to see him back in 6 months with a repeat PSA/ALIN. Plan: RTC 6 months with PSA/ALIN Scar Osorio MD documented in this encounter Plan of Treatment Upcoming Encounters Date Type Department Care Team (Late st Contact Info) Description 04/22/2024 8:10 EDT Appointment [facility] Endoscopy - [place] [facility] [address] [place], [place] [address] Zak Solorzano MD 111 [facility], [address] [place] [phone] documented as of this encounter Visit Diagnoses Diagnosis Abnormal PSA- Primary Elevated prostate specific antigen (PSA) documented in this encounter Care Teams Superintendent Marine Relationship Specialty Start Date End Date Cassidy Pablo MD [address] [place] [address] [address] [place] [phone] PCP - General 12/21/14 05/28/21 documented as of this encounter
--- OUTSIDE RECORDS SUMMARY | 2024-04-13 08:46 | XMS_ITS | Encounter Summary ---
Author Organization [facility] Address [address] [place] [address] Care Team Providers Care Arcade Technician Name Role Phone Cassidy Pablo MD Primary Care Provider [phone] Reason for Visit * Reason Comments Irregular Heart Beat C/o palpitations x 2 weeks. Denies CP, SOB, dizziness. Encounter Details Date Type Department Care Team (Latest Contact Info) Description 06/04/2018 8:56 EST - 06/04/2018 11:40 EST Hospital Encounter [facility] - [address] [id number] Maricruz Guzmán MD [address] [place] [phone] Unknown, ProviderMD Frequent unifocal PVCs (Primary Dx) Discharge Disposition: Home or Self [...] Sign Reading Time Taken Comments Blood Pressure 170/78 06/04/2018 0943 EST Pulse 62 06/04/2018 0911 EST manual pulse, irregular Temperature 36.6 ??C (97.8 ??F) 06/04/2018 0 911 EST Respiratory Rate 16 06/04/2018 0911 EST Oxygen Saturation 96% 06/04/2018 091 1 EST Inhaled Oxygen Concentration - - Weight - - Height - - Body Mass Index - - documented in this encounter Functional Status Functional [...] as of this encounter Discharge Diagnoses Diagnosis I49.3 Ventricular premature depolarization-I49.3[ICD-10-CM] documented in this encounter Discharge Instructions * Discharge Instructions* Maricruz Guzmán MD - 06/04/2018 11:42 EST You have frequent PVCs. This is often not a problem. Because you are feeling it continually and you never have in the past this is worth getting furtherevaluation. You should follow-up with your PCP in the next 1-2 weeks to talk about further testing which may include a Holter monitor, echocardiogram and exercise stress testing. We did blood work today to look at your electrolytes and your thyroid. You will get a phone call ifthese are abnormal. Follow-up sooner should the symptoms worsen, become continuous, you have heart racing, you have chest pain or pressure or shortness of breath. Your blood pressure was also high. Dr. Pablo can monitor this as well. * Attachments The following attachments cannot be sent through Care Everywhere. * PREMATURE HEARTBEAT (TURKMEN) documented in this encounter Medications at Time of Discharge Medication Sig Dispensed Refills Start Date End Date sildenafil citrate (VIAGRA ORAL) Take by mouth as needed. pseudoephedrine HCl (SUDAFED ORAL) Take by mouth. 07/10/2021 documented as of this encounter Discharge Disposition Disposition Code Departure Means Destination Home or Self Care Car Home documented in this encounter ED Notes * Lou George RN - 06/04/2018 1148 EST Blood drawn via butterfly needle per protocol, red tube(s) sent to lab per order. * Maricruz Guzmán MD - 06/04/2018 1113 EST DOS: 06/04/2018 Chief Complaint Patient presents with ??? Irregular Heart Beat C/o palpitations x 2 weeks. Denies CP, SOB, dizziness. The patient is a 63 y.o. male who presents today with Irregular Heart Beat (C/o palpitations x 2 weeks. Denies CP, SOB, dizziness.) For 2-3 weeks he has noticed an irregular heartbeat. He has had intermittent palpitations for his entire adult life. Cutting back caffiene has helped significantly. It has never lasted this long before. Has a sensation of funny beats. Can feel it in his heart. It is not racing. Does not feel when he is exercising or working. 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 He was cross country skiing last weekend. He has no chest pain, shortness of breath or dizziness. Hehas elevated bp here today but he says it is usually ok. Has had borderline cholesterol. His grandmother had heart disease in her 70s. The history is provided by the patient. Irregular Heart Beat Associated symptoms: no chest pain, no dizziness and no shortness of breath Review of Systems Constitutional: Negative for activity change, appetite change and fatigue. Respiratory: Negative for chest tightness, shortness of breath and wheezing. Cardiovascular: Positive for palpitations. Negative for chest pain and leg swelling. Gastrointestinal: Negative for abdominal pain. Skin: Negative for color change. Neurological: Negative for dizziness and syncope. No current facility-administered medications for this encounter. Current Outpatient Medications Medication Sig Dispense Refill ??? pseudoephedrine HCl (SUDAFED ORAL) Take by mouth. ??? sildenafil citrate (VIAGRA ORAL) Take by mouth. Allergies Allergen Reactions ??? Ualsyly-Ipl-Sdo Reductase Inhibitors Other (See Comments) Limb pain ??? Sulfa (Sulfonamide Antibiotics) Other (See Comments) Johann Jovani syndrome There are no active problems to display for this patient. Past Medical History: Diagnosis Date ??? Hepatitis A ??? Malaria Social History Tobacco Use ??? Smoking status: Never Smoker ??? Smokeless tobacco: Former User Types: Chew Substance Use Topics ??? Alcohol use: No Comment: quit ??? Drug use: Yes Types: Marijuana Comment: every few weeks History reviewed. No pertinent family history. BP (!) 170/78 (BP Cuff Location: Right arm, Patient Position: Sitting) Pulse 62 Temp 97.8 ??F (36.6 ??C) (Temporal) Resp 16 SpO2 96% Physical Exam Constitutional: He is oriented to person, place, and time. He appears well- developed and well-nourished. No distress. HENT: Head: Normocephalic and atraumatic. Neck: Neck supple. Cardiovascular: Normal rate and regular rhythm. Few ectopic beats Pulmonary/Chest: Effort normal and breath sounds normal. No respiratory distress. Abdominal: Soft. Musculoskeletal: He exhibits no edema. Neurological: He is alert and oriented to person, place, and time. Skin: Skin is warm. He is not diaphoretic. Psychiatric: He has a normal mood and affect. Nursing note and vitals reviewed. Consult orders: None PCP: Cassidy Pablo No results found for this visit on 06/04/18. Radiology orders: None EKG 12-LEAD Final Result PC Site Test Date: 2018-06-04 Pat Name: TALIA HO Department: [facility] Room: [facility] Gender: Male Petroleum Supply Specialist: : 1955 Requested By: DUKE Isabel Order Number: [id number] Reading MD: MARICRUZ GUZMÁN MD Measurements Intervals [place] Rate: 67 P: 46 UT: 137 QRS: 23 QRSD: 93 T: 25 QT: 401 QTc: 425 Interpretive Statements SINUS RHYTHM WITH FREQUENT VENTRICULAR PREMATURE COMPLEXES NONSPECIFIC T-WAVE ABNORMALITY ABNORMAL RHYTHM ECG Automated Interpretation. Provider Interpretation to follow. No previous ECG available for comparison I reviewed the tracing and have either agreed or edited the findings in this report. Electronically Signed On 06-04-2018 11:11:57 EST by MARICRUZ GUZMÁN MD. Procedures URGENT CARE COURSE A medical screening exam was performed. EKG was performed. He has unifocal pvcs. He only has symptoms at rest and has no other concerning heart symptoms. I did blood work to look for electrolyte abnormalities and thyroid disease. He is going to follow up with his pcp to discuss further work up suchas holter, echo and stress test. His bp was elevated here. He is to follow up sooner for worsening-heart racing, chest pain or pressure or shortness of breath. ASSESSMENT AND PLAN Final diagnoses: Frequent unifocal PVCs No supervision required. DISPOSITION: No disposition on file The patient's pain was managed to an adequate level weighing risk vs. benefit of further medications. Upon departure from [facility], the patient's pain was 0 on a zero to ten scale. Any further pain treatment will be at the discretion of the provider following up with the patient based on their clinical assessment . Condition at departure from the [facility] : Good [facility] 06/04/2018 11:40 * Jasmine Coy RN - 06/04/[address] Guzmán notified of pt's symptoms * Brittany Whipple MA - 06/04/2018 0929 EST 12 Lead EKG Performed by BRITTANY WHIPPLE MA and shown to Maricruz Guzmán MD. * Lou George RN - 06/04/2018 0928 EST Patient presents with heart palpitations x 2-3 weeks with history of heart palpations, increased stress. Patient does note a diffferent sensation on both sides of neck. Denies increased caffeine intake, nausea, vomiting, chest pain, jaw pain, shoulder pain, lightheadedness, dizziness. Between age [age] drinking a lot of iced tea with onset of palpitations that resulted in ED visit- has noted caffeine sensitivity since. documented in this encounter Plan of Treatment Upcoming Encounters Date Type Department Care Team (Late st Contact Info) Description 04/22/2024 8:10 EDT Appointment [facility] Endoscopy - [facility] [address] [place] [address] Zak Solorzano MD [address] [facility], [address] [place] [address] documented as of this encounter Procedures Procedure Name Priority Date/Time Associated Diagnosis Comments TSH STAT 06/04/2018 11:35 EST Frequent unifocal PVCs PHOSPHORUS Routine 06/04/2018 11:35 EST Frequent unifocal PVCs MAGNESIUM STAT 06/04/2018 11:35 EST Frequent unifocal PVCs BASIC METABOLIC PANEL (BMP) STAT 06/04/2018 11:35 EST Frequent unifocal PVCs ECG REPORT - SCANNED 06/04/2018 11:15 EST EKG 12-LEAD STAT 06/04/2018 9:25 EST documented in this encounter Results * (ABNORMAL) TSH (06/04/2018 11:35 EST) TSH 7.39(H) 0.47 - 4.68 uIU/ml 06/04/2018 14:56 EST [facility] Comment: The results of this assay can be falsely lowered due to the consumption of Biotin. Blood specimen (specimen) BLOOD SPECIMEN / Unknown 06/04/2018 11:35 EST 06/04/2018 11:50 EST Maricruz Guzmán MD CHEMISTRY & BLOOD GAS ORDERABLES [facility] [address] [place] [address] * PHOSPHORUS (06/04/2018 11:35 EST) Phosphorus 4.0 2.5 - 4.5 mg/dl 06/04/2018 13:11 [facility] Comment: Results may be affected due to hemolysis. Slight hemolysis Performed at [place], [place] Blood specimen (specimen) BLOOD SPECIMEN / Unknown 06/04/2018 11:35 EST 06/04/2018 11:50 EST Maricruz Guzmán MD CHEMISTRY & BLOOD GAS ORDERABLES Performing Organization Address [facility] Co de Phone Number [facility] [address] [place] [address] * MAGNESIUM (06/04/2018 11:35 EST) Magnesium 2.3 1.7 - 2.8 mg/dl 06/04/2018 13:11 [facility] Comment: Results may be affected due to hemolysis. Slight hemolysis Performed at [place], [place] Blood specimen (specimen) BLOOD SPECIMEN / Unknown 06/04/2018 11:35 EST 06/04/2018 11:50 EST Maricruz Guzmán MD CHEMISTRY & BLOOD GAS ORDERABLES Performing Organization Address [facility] de Phone Number [facility] [address] [place] [address] * BASIC METABOLIC PANEL (BMP) (06/04/2018 11:35 EST) Sodium 139 136 - 145 mEq/L 06/04/2018 12:51 [facility] Potassium 4.5 3.5 - 5.0 mEq/L 06/04/2018 13:11 [facility] Comment: Hemolysis may elevate potassium result. Slight hemolysis Chloride 107 96 - 110 mEq/L 06/04/2018 12:51 [facility] CO2 23 22 - 32 mEq/L 06/04/2018 12:51 [facility] BUN 15 10 - 26 mg/dl 06/04/2018 13:11 [facility] Comment: Results may be affected due to hemolysis. Slight hemolysis Creatinine 1.06 0.66 - 1.25 mg/dl 06/04/2018 12:51 [facility] GFR, Calculated 75 >60 ml/min/1.7 3m2 06/04/2018 12:51 [facility] Comment: eGFR calculated using CKD-EPI equation for non Americans. Multiply eGFR by 1.16 for Americans. Calcium 9.3 8.5 - 10.5 mg/dl 06/04/2018 13:11 [facility] Comment: Results may be affected due to hemolysis. Slight hemolysis Calculated Calcium 8.8 8.5 - 10.5 mg/dl 06/04/2018 12:51 [facility] Glucose, Serum 93 70 - 100 mg/dl 06/04/2018 13:11 [facility] Comment: Results may be affected due to hemolysis. Slight hemolysis Fasting? Unknown 06/04/2018 11:51 [facility] Comment:Performed at [place], [place] Blood specimen (specimen) BLOOD SPECIMEN / Unknown 06/04/2018 11:35 EST 06/04/2018 11:50 EST Maricruz Guzmán MD CHEMISTRY & BLOOD GAS ORDERABLES Performing Organization Address City/State/[facility] Co de Phone Number [facility] [address] [place] [address] * ECG REPORT - SCANNED (06/04/2018 11:15 EST) 06/04/2018 11:1 5 EST Scan 2 Optical Engineering Technician PROCEDURE/MINOR TALON GICAL ORDERABLES * EKG 12-LEAD (06/04/2018 9:25 EST) 06/04/2018 9:25 EST Narrative [facility] EKG - 06/04/2018 11:11 EST ? PC Site ? Test Date: ?2018-06-04 Pat Name: ? TALIA HO ? Department: ?? [facility] ? Room: ? [facility] Gender: ? Male ? Petroleum Supply Specialist: ?? : ?1955 ? Requested By: DUKE TREJO B Order Number: [id number] ? Reading MD: ?? MARICRUZ GUZMÁN MD ? Measurements Intervals ?[place] ? Rate: ? 67 ? P: ?46 UT: ? 137 ?QRS: ?23 QRSD: ? 93 ? T: ?25 QT: ? 401 ? QTc: ?425 ? Interpretive Statements SINUS RHYTHM WITH FREQUENT VENTRICULAR PREMATURE COMPLEXES NONSPECIFIC T-WAVE ABNORMALITY ABNORMAL RHYTHM ECG Automated Interpretation. ??Provider Interpretation to follow. No previous ECG available for comparison I reviewed the tracing and have either agreed or edited the findings in this report. Electronically Signed On 06-04-2018 11:11:57 EST by MARICRUZ GUZMÁN MD. Procedure Note Maricruz Guzmán MD - 06/04/2018 Site Test Date: 2018-06-04 Pat Name: TALIA HO Department: [facility] Room: [facility] Gender: Male Petroleum Supply Specialist: : 1955 Requested By: DUKE Isabel Order Number: [id number] Reading MD: MARICRUZ GUZMÁN MD Measurements Intervals [place] Rate: 67 P: 46 UT: 137 QRS: 23 QRSD: 93 T: 25 QT: 401 QTc: 425 Interpretive Statements SINUS RHYTHM WITH FREQUENT VENTRICULAR PREMATURE COMPLEXES NONSPECIFIC T-WAVE ABNORMALITY ABNORMAL RHYTHM ECG Automated Interpretation. Provider Interpretation to follow. No previous ECG available for comparison I reviewed the tracing and have either agreed or edited the findings inthis report. Electronically Signed On 06-04-2018 11:11:57 EST by BRANDIE YOST. Maricruz Guzmán MD CARDIAC ECG ORDERABLES [facility] EKG documented in this encounter Visit Diagnoses Diagnosis Frequent unifocal PVCs- Primary Other premature beats documented in this encounter Discontinued Medications Medication Sig Discontinue Reason Start Date End Da te aspirin 325 mg tablet Take 325 mg by mouth daily Therapy completed 06/04/2018 LORAZEPAM ORAL Take by mouth. Therapy completed 06/04/2018 documented as of this encounter Orders Nursing Count Last Ordered Date First Orde red Date PULSE OXIMETRY 1 06/04/2018 documented in this encounter Care Teams Arcade Technician Relationship Specialty Start Date End Date Cassidy Pablo MD [address] [phone] PCP - General 12/21/14 05/28/21 documented as of this encounter
--- OUTSIDE RECORDS SUMMARY | 2024-04-13 08:46 | XMS_ITS | Encounter Summary ---
Author Organization [facility] Address [address] [place] [address] Care Team Providers Care Global Marketing Intern Name Role Phone Cassidy Pablo MD Primary Care Provider [phone] Encounter Details Date Type Department Care Team (Latest Contact Info) Description 08/31/2019 Travel Social History Tobacco Use Types Packs/Day Years [...] Info) Description 04/22/2024 8:10 EDT Appointment [facility] Endoscopy - [facility] [address] [place], [place] [phone] Zak Solorzano MD [address] [facility], [facility], [address] [place] [address] documented as of this encounter Visit Diagnoses Not on filedocumented in this encounter Care Teams Global Marketing Intern Relationship Specialty Start Date End Date Cassidy Pablo MD [address] [phone] PCP - General 12/21/14 05/28/21 documented as of this encounter
--- OUTSIDE RECORDS SUMMARY | 2024-04-13 08:46 | XMS_ITS | Encounter Summary ---
Author Organization [facility] Address [address] [place] [address] Care Team Providers Care Concert Manager Name Role Phone Cassidy Pablo MD Primary Care Provider [phone] Viola Dave MD Primary Care Provider Unknown, Provider Primary Care Provider [phone] Encounter Details Date Type Department Care Team (Late st Contact Info) Description 01/02/2021 Lab Requisition [facility] Pathology & Laboratory Medicine - [address] [phone] Viola Dave MD [address] [place] [phone] Encounter for screening for other suspected endocrine disorder Social History Tobacco Use Types Packs/Day Years [...] Contact Info) Description 04/22/2024 8:10 EDT Appointment [facility] Endoscopy - [facility] [address] [place], [place] [phone] Zak Solorzano MD [address] [facility], [address] [place] [address] documented as of this encounter Procedures Procedure Name Priority Date/Time Associated Diagnosis Comments T3 FREE Today 12/29/2020 9:13 EDT Encounter for screening for other suspected endocrine disorder [ICD-10-CM] T4 FREE Today 12/29/2020 9:13 EDT Encounter for screening for other suspected endocrine disorder [ICD-10-CM] documented in this encounter Results * T4 FREE (12/29/2020 9:13 EDT) T4, Free 0.8 0.8 - 2.2 ng/dL 01/02/2021 16:00 EDT [facility] Blood VENOUS BLOOD / Unknown 12/29/2020 9:13 EDT 01/02/2021 15:25 EDT Viola Dave MD CHEMISTRY & BLO OD GAS ORDERABLES [facility] [address] [place] [address] * T3 FREE (12/29/2020 9:13 EDT) T3, Free 3.7 2.8 - 5.3 pg/mL 01/02/2021 16:00 EDT [facility] Blood VENOUS BLOOD / Unknown 12/29/2020 9:13 EDT 01/02/2021 15:25 EDT Viola Dave MD CHEMISTRY & BLO OD GAS ORDERABLES [facility] [address] [place] [address] documented in this encounter Visit Diagnoses Diagnosis Encounter for screening for other suspected endocrine disorder documented in this encounter Care Teams Concert Manager Relationship Specialty Start Date End Date Cassidy Pablo MD [address] [facility] [address] [place] [phone] PCP - General 12/21/14 05/28/21 Viola Dave MD [address] [place] [phone] PCP - General 05/29/21 02/26/23 Unknown, ProviderMD PCP - General 02/27/23 documented as of this encounter
--- OUTSIDE RECORDS SUMMARY | 2024-04-13 08:46 | XMS_ITS | Encounter Summary ---
Author Organization [facility] Address [address] [place] [address] Care Team Providers Care Cardiac Surgeon Name Role Phone Cassidy Pablo MD Primary Care Provider +1 [phone] Reason for Referral * Cardiology (STAT) - Closed Specialty Diagnoses / Procedures Referred By Owen lawson Referred To Contact Diagnoses Palpitations Procedures HOLTER MONITOR Tarik Hammonds MD Referral ID Status Reason Start Date Expiration Date Visits Re quested Visits Authorized [id number] Closed 09/17/2018 1 1 Reason for Visit * Reason Comments Palpitations NPV * Referral (Routine) - Closed Specialty Diagnoses / Procedures Referred By Owen lawson Referred To Contact Cardiology Diagnoses Palpitations Cassidy Pablo MD [address] [place] [address] [address] [place] [address] [facility] Cardiology [place] [address] Referral ID Status Reason Start Date Expiration Date Visits Re quested Visits Authorized [id number] Closed 1 1 Encounter Details Date Type Department Care Team (Late st Contact Info) Description 09/17/2018 13:30 EDT Office Visit [facility] Cardiology [place] [address] Martin Joy MD [address] [place], [place] [id number] Palpitations (Primary Dx) Discharge Disposition: Auto Discharge [...] Sign Reading Time Taken Comments Blood Pressure 112/78 09/17/2018 1322 EDT Pulse 77 09/17/2018 1322 EDT Temperature - - Respiratory Rate - - Oxygen Saturation 97% 09/17/2018 1322 EDT Inhaled Oxygen Concentration - - Weight 90.7 kg (200 lb) 09/17/2018 1322 EDT Height 175.3 cm (5' 9) 09/17/2018 1322 EDT Body Mass Index 29.53 09/17/2018 1322 EDT documented in this encounter Functional Status [...] as of this encounter Discharge Diagnoses Diagnosis R00.2 Palpitations-R00.2[ICD-10-CM] documented in this encounter Discharge Disposition Disposition Code Departure Means Destination Auto Discharge documented in this encounter Progress Notes * Martin Joy MD - 09/17/2018 1330 EDT CARDIOLOGY - Initial Consultation Referring Provider: Cassidy Pablo MD [address] [address] PCP: Cassidy Pablo Reason for Consultation: Palpitations HPI: Talia Ho is a 63 y.o. male with a PMH notable for etoh abuse 20 years ago referred from [facility] for further evaluation of palpitaitons. Pt repots hx of palpitations around age21 that he said was attributed to caffeine. As a result, he stopped caffeine and had being doing wel l. Then in Jun 04, 2018, pt presented to ED for palpitation. EKG at that time showed sinus rhythm with some PVCs. Unclear if he had symptoms while EKG was obtained. Discharged from ED with referral to PMD. After discharge, pt switched to caffeine free coffee and saw his PMD. PMD noticed that his TSH was slightly elevated so he was started on thyroid replacement. Patient reports that thyroid replacement exacerbated his palpitations a lot so he self discontinued it. Palpitations markedly improvedafter thyroid discontinuation. In addition, pt stopped coffee all together and switched to caffeinefree tea. After all this, pt still reports palpitations, about 20 episodes/day that last about 1-2 beats each time. No syncope, dizziness, chest pain, family history of sudden cardiac , shortness of breath, leg swelling, fever, URI. Occasional marijuana use but no coccaine/amphetamine use. He PMH PSH Past Medical History: Diagnosis Date ??? Hepatitis A ??? Malaria Past Surgical History: Procedure Laterality Date ??? ACHILLES TENDON SURGERY Right ??? KIDNEY REMOVAL Left ??? KNEE SURGERY Right meniscus ??? TONSILLECTOMY Social History Former etoh abuse Family History [place] in mother Medications Current Outpatient Medications: ??? LORazepam (ATIVAN) [...] , Rfl: Allergies Allergies Allergen Reactions ??? Xtzczqk-Bqc-Obf Reductase Inhibitors Other (See Comments) Limb pain ??? Sulfa (Sulfonamide Antibiotics) Other (See Comments) Johann Jovani syndrome Review of Systems: ROS as noted in HPI Physical Exam: Gen: No acute distress Skin: Warm Head: nc/at Eyes: EOMI CV: rrr, nl s1/s2, no m/r/g, no LE edema Pulm: ctab, no wheezes or crackles, Abdomen: soft, nontender, nondistended. No rebound or guarding. Normoactive bowel sounds Neuro: alert and oriented to person, place, and time. No facial droop Data: Data reviewed. Labs: Lab Results Component Value Date/Time NA 139 06/04/2018 11:35 K 4.5 06/04/2018 11:35 CL 107 06/04/2018 11:35 BUN 15 06/04/2018 11:35 TSH 7.39 (H) 06/04/2018 11:35 ECG: sinus rhythm Assessment/Plan: Talia Ho is a 63 y.o. male with a PMH notable for etoh abuse 20 years ago referred from [facility] for further evaluation of palpitaitons. Previously attributed to caffeine use but still persists despite cessation, although improved. No hx of syncope or family hx of sudden cardiac . ED EKG significant for sinus rhythm with PVCs. Palpitation etiologies are possibly multifactorial including PVCs from RVOT vs caffeine induced tachycardia vs other # Palpitations - will order holter for further evaluation - consider TTE if significant PVC burden to assess for scar, cardiomyopathy, etc - defer beta anamaria at this time as it is unclear patient's symptoms are from PVCs - continue caffeine abstinence - f/u in 1-2 weeks Case discussed with Cardiology attending Dr. Hammonds * Tarik Hammonds MD - 09/17/2018 1330 EDT I saw and examined the patient. I agree with the findings, assessment and plan as outlined by the resident/fellow/nurse practitioner documented in this encounter Plan of Treatment Upcoming Encounters Date Type Department Care Team (Late st Contact Info) Description 04/22/2024 8:10 EDT Appointment [facility] Endoscopy - [address] [address] Zak Solorzano MD [address] [facility], [address] [place] [phone] documented as of this encounter Procedures Procedure Name Priority Date/Time Associated Diagnosis Comments ECG REPORT - SCANNED 09/22/2018 13:44 EDT EKG 12-LEAD Routine 09/17/2018 13:58 EDT Palpitations documented in this encounter Results * ECG REPORT - SCANNED (09/22/2018 13:44 EDT) 09/22/2018 13:4 4 EDT Scan 2 Press Officer PROCEDURE/MINOR TALON GICAL ORDERABLES * HOLTER MONITOR (09/17/2018 14:52 EDT) 09/17/2018 14:5 2 EDT Narrative [facility] EKG - 09/28/2018 10:58 EDT ? [facility] ? Test Date: ?2018-09-17 Pat Name: ? TALIA HO ? Department: ? Room: ? Gender: ? Male ? Mattress Stuffer: ?? [id number] : ?1955 ? Requested By: NASRA Guillen Order Number: [id number] ? Reading : ?? DIMITRI HALL SA, MD ? Interpretive [...] Rosenberg Sa, MD, MD - 09/28/2018 [facility] Test Date: 2018-09-17 Pat Name: TALIA HO Department: Room: Gender: Male Mattress Stuffer: [id number] : 1955 Requested By: NASRA Guillen Order Number: [id number] Reading MD: DIMITRI BRAVO Interpretive Statements 24 hour [...] 10:58:50 EDT by DIMITRI MAYNARD SA, MD. Tarik Hammonds MD CARDIAC ECG ORDERABL ES [facility] EKG * EKG 12-LEAD (09/17/2018 13:58 EDT) 09/17/2018 13:5 8 EDT Narrative [facility] EKG - 09/22/2018 13:40 EDT ? [facility] ? Test Date: ?2018-09-17 Pat Name: ? TALIA HO ? Department: ?? Zoe Card ? Room: ? Gender: ? Male ? Mattress Stuffer: ?? [id number] : ?1955 ? Requested By: CAPELESS TARIK A Order Number: [id number] ? Reading MD: ?? TARIK CAPELESS MD ? Measurements Intervals ?[place] ? Rate: ? 63 ? P: ?43 TN: ? 137 ?QRS: ?39 QRSD: ? 88 ? T: ?26 QT: ? 375 ? QTc: ?386 ? Interpretive Statements SINUS RHYTHM NONSPECIFIC T-WAVE ABNORMALITY Compared to ECG 06/04/2018 09:25:32 Ventricular premature complex(es) no longer present T-wave abnormality still present I reviewed the tracing and have either agreed or edited the findings in this report. Electronically Signed On 09-22-2018 13:40:20 EDT by TARIK HAMMONDS MD. Procedure Note Tarik Hammonds MD - 09/22/2018 [facility] Test Date: 2018-09-17 Pat Name: TALIA HO Department: [place]oe [place] Room: Gender: Male Mattress Stuffer: [id number] : 1955 Requested By: NASRA Guillen Order Number: [id number] Reading MD: TARIK HAMMONDS MD Measurements Intervals [place] Rate: 63 P: 43 TN: 137 QRS: 39 QRSD: 88 T: 26 QT: 375 QTc: 386 Interpretive Statements SINUS RHYTHM NONSPECIFIC T-WAVE ABNORMALITY Compared to ECG 06/04/2018 09:25:32 Ventricular premature complex(es) no longer present T-wave abnormality still present I reviewed the tracing and have either agreed or edited the findings inthis report. Electronically Signed On 09-22-2018 13:40:20 EDT by TARIK WHALEN. Tarik Hammonds MD CARDIAC ECG ORDERABL ES [facility] EKG documented in this encounter Visit Diagnoses Diagnosis Palpitations- Primary Palpitations- Primary documented in this encounter Historical Medications * This list may reflect changes made after this encounter. Medication Sig Dispensed Refills Start Date End Date LORazepam (ATIVAN) 2 mg tablet Take 2 mg by mouth as needed for Anxiety. 07/10/2021 added in this encounter Care Teams Cardiac Surgeon Relationship Specialty Start Date End Date Cassidy Pablo MD [address] [phone] PCP - General 12/21/14 05/28/21 documented as of this encounter
--- OUTSIDE RECORDS SUMMARY | 2024-04-13 08:46 | XMS_ITS | Encounter Summary ---
Author Organization [facility] Address [address] [place] [address] Care Team Providers Care Refrigeration Unit Repairer Name Role Phone Cassidy Pablo MD Primary Care Provider [phone] Viola Dave MD Primary Care Provider Unknown, Provider Primary Care Provider [phone] Encounter Details Date Type Department Care Team (Late st Contact Info) Description 01/04/2021 Lab Requisition [facility] Pathology & Laboratory Medicine - [address] [id number] Viola Dave MD [address] [place] [phone] Encounter for screening for lipoid disorders Social History Tobacco Use Types Packs/Day Years [...] Contact Info) Description 04/22/2024 8:10 EDT Appointment [facility] Endoscopy - [address] [address] Zak Solorzano MD [address] [facility], [address] [place] [phone] documented as of this encounter Visit Diagnoses Diagnosis Encounter for screening for lipoid disorders Screening for lipoid disorders documented in this encounter Care Teams Refrigeration Unit Repairer Relationship Specialty Start Date End Date Cassidy Pablo MD [address] [facility] [address] [place] [phone] PCP - General 12/21/14 05/28/21 Viola Dave MD [address] [place] [phone] PCP - General 05/29/21 02/26/23 Unknown, ProviderMD PCP - General 02/27/23 documented as of this encounter
--- OUTSIDE RECORDS SUMMARY | 2024-04-13 08:46 | XMS_ITS | Encounter Summary ---
Author Organization [facility] Address [address] [place] [address] Care Team Providers Care Roof Truss Builder Name Role Phone Cassidy Pablo MD Primary Care Provider [phone] Reason for Visit * Reason Onset Date Comments Results 10/19/2018 holter Encounter Details Date Type Department Care Team (Late st Contact Info) Description 10/19/2018 Telephone [facility] Cardiology - [place]oe [address] [place] [address] Martin Joy MD [address] [place], [place] [phone] Results (holter) Social History Tobacco Use Types Packs/Day Years [...] encounter Miscellaneous Notes * Telephone Encounter - Skye Trammell RN - 10/20/[address] Joy- holter showed some premature heart beats and that it is normal and nothing to worryabout. Pt notified. * Telephone Encounter - Mary Medina V. - 10/19/2018 1013 EDT Talia is calling for his holter results from 1 month ago. Anxious to hear back documented in this encounter Plan of Treatment Upcoming Encounters Date Type Department Care Team (Late st Contact Info) Description 04/22/2024 8:10 EDT Appointment [facility] [place] [address] Zak Solorzano MD [address] [facility], [address] [place] [phone] documented as of this encounter Visit Diagnoses Not on filedocumented in this encounter Care Teams Roof Truss Builder Relationship Specialty Start Date End Date Cassidy Pablo MD [address] [place] [address] [address] [place] [phone] PCP - General 12/21/14 05/28/21 documented as of this encounter
--- OUTSIDE RECORDS SUMMARY | 2024-04-13 08:46 | XMS_ITS | Encounter Summary ---
Author Organization [facility] Address [address] [place] [address] Care Team Providers Care Knitted Cloth Examiner Name Role Phone Cassidy Pablo MD Primary Care Provider [phone] Encounter Details Date Type Department Care Team (Latest Contact Info) Description 09/23/2018 7:40 EDT - 09/23/2018 7:41 EDT Hospital Encounter [address] [place] [address] Brad Moore MD Discharge Disposition: Home or Self Care Social [...] Diagnosis R00.2 Palpitations-R00.2[ICD-10-CM] documented in this encounter Medications at Time [...] or Self Care documented in this encounter Plan of Treatment Upcoming Encounters Date Type Department Care Team (Late st Contact Info) Description 04/22/2024 8:10 EDT Appointment [facility] Endoscopy - [address] [address] Zak Solorzano MD 111 [facility], [address] [place] [address] documented as of this encounter Visit Diagnoses Not on filedocumented in this encounter Care Teams Knitted Cloth Examiner Relationship Specialty Start Date End Date Cassidy Pablo MD [address] [place] [address] [address] [place] [address] PCP - General 12/21/14 05/28/21 documented as of this encounter
--- OUTSIDE RECORDS SUMMARY | 2024-04-13 08:46 | XMS_ITS | Encounter Summary ---
Author Organization [facility] Address [address] [place] [address] Care Team Providers Care Clinical Product Specialist Name Role Phone Cassidy Pablo MD Primary Care Provider [phone] Reason for Visit * Reason Onset Date Comments Labs Only 02/04/2018 prep for appt Encounter Details Date Type Department Care Team (Late st Contact Info) Description 02/04/2018 Orders Only [facility] Urology - [facility] [address] [place], [place] [address] Scar Osorio MD 111 [facility], [address] [place] [address] Elevated PSA (Primary Dx) Social [...] Info) Description 04/22/2024 8:10 EDT Appointment [facility] Endoscopy - [facility] [address] [place], [place] [address] Zak Solorzano MD 111 [facility], [address] [place] [phone] documented as of this encounter Visit Diagnoses Diagnosis Elevated PSA- Primary Elevated prostate specific antigen (PSA) documented in this encounter Care Teams Clinical Product Specialist Relationship Specialty Start Date End Date Cassidy Pablo MD [address] [place] [address] [address] [place] [phone] PCP - General 12/21/14 05/28/21 documented as of this encounter
--- OUTSIDE RECORDS SUMMARY | 2024-04-13 08:46 | XMS_ITS | Encounter Summary ---
Author Organization [facility] Address [address] [place] [address] Care Team Providers Care Cider Press Operator Name Role Phone Cassidy Pablo MD Primary Care Provider [phone] Reason for Visit * Reason Onset Date Comments Telemedicine Phone Call 02/23/2020 Returning Call 02/29/2020 Encounter Details Date Type Department Care Team (Late st Contact Info) Description 02/23/2020 Telephone [facility] Urology - [facility] [address] [place], [place] [address] Scar Osorio MD [address] [place] [address], [address] [place] [address] Telemedicine Phone Call; Returning Call Social History Tobacco Use Types Packs/Day Years [...] encounter Miscellaneous Notes * Telephone Encounter - Ally Hurtado - 02/29/2020 1203 EDT Patient called to cancel 8.[address] Osorio as the patient has a conflict in his schedule and has not had labs drawn as of yet. Patient will call back at a later date to reschedule. * Telephone Encounter - Marcella Vences - 02/23/2020 1405 EDT Left message for pt that his 6 mo f/u PSA appt with Dr. Osorio for next week is being changed to a Telemed visit. Faxed PSA orders to [facility] for pt to have done. Requesting a call back to confirm Zoom or phone call. documented in this encounter Plan of Treatment Upcoming Encounters Date Type Department Care Team (Late st Contact Info) Description 04/22/2024 8:10 EDT Appointment [facility] Endoscopy - [facility] [address] [place], [place] [address] Zak Solorzano MD [address] [facility], [address] [place] [phone] documented as of this encounter Visit Diagnoses Not on filedocumented in this encounter Care Teams Cider Press Operator Relationship Specialty Start Date End Date Cassidy Pablo MD [address] [place] [address] [address] [place] [phone] PCP - General 12/21/14 05/28/21 documented as of this encounter
--- OUTSIDE RECORDS SUMMARY | 2024-04-13 08:46 | XMS_ITS | Encounter Summary ---
Author Organization [facility] Address [address] [place] [address] Care Team Providers Care Varnish Melter Name Role Phone Cassidy Pablo MD Primary Care Provider [phone] [phone] Encounter Details Date Type Department Care Team (Late st Contact Info) Description 08/04/2018 16:00 EST - 08/04/2018 16:01 [facility] Hospital Encounter [address] [place] [address] Cassidy Pablo MD [address] [place] [address] [address] [place] [address] Discharge Disposition: Home or Self Care Social [...] as of this encounter Discharge Diagnoses Diagnosis R79.89 Other specified abnormal findings of blood chemistry-R79.89[ICD-10-CM] documented in this encounter Medications at Time of Discharge Medication Sig Dispensed Refills Start Date End Date sildenafil citrate (VIAGRA ORAL) Take by mouth as needed. polyethylene glycol (GOLYTELY) 236-22.74-6.74 -5.86 gram suspensionIndications [...] Contact Info) Description 04/22/2024 8:10 EDT Appointment [facility] Endoscopy - [address] [phone] Zak Solorzano MD 111 [facility], [address] [place] [address] documented as of this encounter Visit Diagnoses Not on filedocumented in this encounter Care Teams Varnish Melter Relationship Specialty Start Date End Date Cassidy Pablo MD [address] [place] [address] [address] [place] [phone] PCP - General 12/21/14 05/28/21 documented as of this encounter
--- OUTSIDE RECORDS SUMMARY | 2024-04-13 08:46 | XMS_ITS | Encounter Summary ---
Author Organization [facility] Address [address] [place] [address] Care Team Providers Care Tow Motor Operator Name Role Phone Cassidy Pablo MD Primary Care Provider [phone] [phone] Reason for Visit * Reason Comments Follow-up PSA done 08/27. Recen t urethra discomfort Encounter Details Date Type Department Care Team (Late st Contact Info) Description 08/31/2019 16:00 EST Office Visit [facility] Urology - [address] [address] Scar Osorio MD [address] [place] [address], [address] [place] [address] Abnormal PSA (Primary Dx); BPH associated with nocturia Social History Tobacco Use Types Packs/Day Years [...] Progress Notes * Scar Osorio MD - 08/31/2019 1600 EST Chief Complaint: Chief Complaint Patient presents with ??? Follow-up PSA done 08/27. Recent urethra discomfort HPI: Talia is a 64 y.o. male with an abnormal PSA. Initially his PSA was 6.71 in September 2017 then 5.02 in September 2018 and he is following up today with a PSA of 4.9 in August 2019. He did have an episode of some urinary frequency as well as some rectal pain that lasted for about 3 weeks. I recommended at that time he start tamsulosin which she has not started. His symptoms have resolved and are back to baseline. He has nocturia x1. This is not bothersome to him. Medications Current Outpatient Medications: ??? LORazepam (ATIVAN) [...] Rfl: 3 Allergies Allergies Allergen Reactions ??? Vvllclc-Inf-Btd Reductase Inhibitors Other (See Comments) Limb pain ??? Sulfa (Sulfonamide Antibiotics) Other (See Comments) Johann Jovani syndrome Objective/Physical Exam: Vital Signs: There were no vitals taken for this visit. Exam: Constitutional: Alert, in no distress. Pulm: Normal effort, unlabored ALIN: 40 g prostate, benign Musculoskeletal: Extremities warm without edema. Skin: Skin warm and dry. Psych: Mood and affect appropriate Data Review: NA Labs: PSA: Lab Results Component Value Date PSA 4.9 (H) 08/27/2019 Impression: Patient with a PSA that has trended down from a high of 6.7 in 2018 to now 4.9 associated with benign digital rectal exam. His BPH is stable without medications. Plan: Follow-up in 6 months with a repeat PSA Scar Osorio MD This note has been prepared with voice recognition software. Please excuse drop forge operator errors. documented in this encounter Plan of Treatment Upcoming Encounters Date Type Department Care Team (Late st Contact Info) Description 04/22/2024 8:10 EDT Appointment [facility] Endoscopy - [address] [phone] Zak Solorzano MD 111 [facility], [address] [place] [phone] documented as of this encounter Visit Diagnoses Diagnosis Abnormal PSA- Primary Elevated prostate specific antigen (PSA) BPH associated with nocturia Hypertrophy of prostate with urinary obstruction and other lower urinary tract symptoms (LUTS) documented in this encounter Care Teams Tow Motor Operator Relationship Specialty Start Date End Date Cassidy Pablo MD [address] [facility] [address] [place] [address] PCP - General 12/21/14 05/28/21 documented as of this encounter
--- OUTSIDE RECORDS SUMMARY | 2024-04-13 08:46 | XMS_ITS | Encounter Summary ---
Author Organization [facility] Address [address] [place] [address] Care Team Providers Care Catalogue Illustrator Name Role Phone Cassidy Pablo MD Primary Care Provider [phone] [phone] Reason for Visit * Reason Onset Date Comments Appointment Related 03/17/2019 Encounter Details Date Type Department Care Team (Late st Contact Info) Description 03/17/2019 Telephone [facility] Urology - [facility] [address] [place], [place] [address] Scar Osorio MD 111 [facility], [address] [place] [address] Appointment Related Social History Tobacco [...] encounter Miscellaneous Notes * Telephone Encounter - Maricruz [place] DO - 03/17/2019 0950 EDT Called and left patient a message for a reminder of getting lab work done prior to next appointmentwith Dr. Osorio on 03/23/19. Aman [place] 03/17/2019 9:53 documented in this encounter Plan of Treatment Upcoming Encounters Date Type Department Care Team (Late st Contact Info) Description 04/22/2024 8:10 EDT Appointment [facility] Endoscopy - [facility] [address] [place] [address] Zak Solorzano MD 111 [facility], [address] [place] [address] documented as of this encounter Visit Diagnoses Not on filedocumented in this encounter Care Teams Catalogue Illustrator Relationship Specialty Start Date End Date Cassidy Pablo MD 617 [facility] [address] [place] [address] PCP - General 12/21/14 05/28/21 documented as of this encounter
--- OUTSIDE RECORDS SUMMARY | 2024-04-13 08:46 | XMS_ITS | Encounter Summary ---
Author Organization [facility] Address [address] [place] [address] Care Team Providers Care Pouring Crane Operator Name Role Phone Cassidy Pablo MD Primary Care Provider +1 [phone] Reason for Visit * Reason Onset Date Comments Appointment Related 03/22/2019 CAN [facility] zachery rrow @14:30 w/Dr Osorio Encounter Details Date Type Department Care Team (Late st Contact Info) Description 03/22/[address] [facility] Urology - [facility] [address] [place] [address] Scar Osorio [address] [place], [place] [id number] Appointment Related (CAN [facility] tomorrow @14:30 w/Dr Osorio) Social History Tobacco Use Types Packs/Day Years [...] Miscellaneous Notes * Telephone Encounter - Marcella Vences - 03/23/2019 1010 EDT Left message for pt to call and reschedule [address] Osorio. * Telephone Encounter - Swapna Blanchard - 03/22/2019 0824 EDT CAN [facility] tomorrow @14: 30 w/Dr Osorio On [facility]. Pls call back to [facility] documented in this encounter Plan of Treatment Upcoming Encounters Date Type Department Care Team (Late st Contact Info) Description 04/22/2024 8:[address] [facility] Endoscopy - [address] [address] Zak Solorzano MD 111 [facility], [address] 5 [place] [phone] documented as of this encounter Visit Diagnoses Not on filedocumented in this encounter Care Teams Pouring Crane Operator Relationship Specialty Start Date End Date Cassidy Pablo MD [address] [place] [address] [address] [place] [phone] PCP - General 12/21/14 05/28/21 documented as of this encounter
--- OUTSIDE RECORDS SUMMARY | 2024-04-13 08:46 | XMS_ITS | Encounter Summary ---
Author Organization [facility] Address [address] [place] [address] Care Team Providers Care Fruit Express Agent Name Role Phone Cassidy Pablo MD Primary Care Provider +1 [phone] Reason for Visit * Reason Onset Date Comments Urinary Tract Infection 08/03/2019 still pérez ving symptoms Returning Call 08/03/2019 Returning Call 08/23/2019 RN Encounter Details Date Type Department Care Team (Late st Contact Info) Description 08/03/2019 Telephone [facility] Urology - [address] [address] Scar Osorio MD 111 [facility], [address] [place] [address] Urinary Tract Infection (still having symptoms); Returning Call; Returning Call (RN ) Social History Tobacco Use Types Packs/Day [...] Dispensed Refills Start Date End Da te tamsulosin (FLOMAX) 0.4 mg capsule Take 1 Cap by mouth daily. 30 Cap 3 08/09/2019 documented in this encounter Miscellaneous Notes * Telephone Encounter - Kiersten Mcintyre RN - 08/23/2019 1518 EST Spoke with patient he is aware of ua/cx results. * Telephone Encounter - Marcella Vences - 08/23/2019 1518 EST Took call from pt, scheduled for 08/31 @ 4pm. Pt requesting PSA orders be faxed to [facility]. Routed message to BK to sign external orders. * Telephone Encounter - Marcella Vences - 08/23/2019 1337 EST Left message for pt to call back to schedule follow-up. * Telephone Encounter - Kiersten Mcintyre RN - 08/23/2019 1318 EST LM for patient to return call to f/u with symptoms. Discussed ua/cx with Dr. Osorio who states patient should be seen for f/u ( next available) LM for [facility] SHERLEY Alonso to call back ifneeded. * Telephone Encounter - Libby Fishman - 08/23/2019 1030 EST RN returning call; please call as soon as possible Faxing UA results * Telephone Encounter - Kiersten Mcintyre RN - 08/23/2019 0900 EST LM for nurse at [facility] to call back to discuss urine cx. * Telephone Encounter - Kiersten Mcintyre RN - 08/18/2019 0908 EST Patient has not submitted urine sample. He will submit tomorrow. * Telephone Encounter - Delmis Osborne RN - 08/09/2019 1645 EST The patient is aware of Dr Osorio's recommendations for flomax and repeat urine sample. Rx sent to pharmacy. The patient will submit the urine sample at his PCP office when he goes on th 26 * Telephone Encounter - Francesca Pantoja - 08/09/2019 1628 EST Patient returning nurses call. Please call back. * Telephone Encounter - Delmis Osborne RN - 08/09/[address] Osorio Yes lets get a repeat and start him on nightly flomax 0.4mg please. Warn him about dizziness too please. Thanks, Ryan The patient will need a repeat urinalysis and culture per Dr Osorio. Left a message for return call. * Telephone Encounter - Delmis Osborne RN - 08/03/2019 1459 EST The patient is calling to let us know that he is still having symptoms. He is feeling rectal irritation and mid urethral pain and tip of the penis pain. These symptoms have lasted about 3 weeks or so. He is concerned given ongoing symptom the the fact that his PSA has been very up and down. He is wondering when to have PSA drawn and would like follow up. * Telephone Encounter - Francesca Pantoja - 08/03/2019 0823 EST Patient called back to talk to nurse about symptoms they are having related to UTI. Wondering if heshould be seen. Please call to discuss. documented in this encounter Plan of Treatment Upcoming Encounters Date Type Department Care Team (Late st Contact Info) Description 04/22/2024 8:10 EDT Appointment [facility] Endoscopy - [facility] [address] [place] [address] Zak Solorzano MD 111 [facility], [address] [place] [address] documented as of this encounter Visit Diagnoses Diagnosis Dysuria- Primary documented in this encounter Care Teams Fruit Express Agent Relationship Specialty Start Date End Date Cassidy Pablo MD [address] [place] [address] [address] [place] [phone] PCP - General 12/21/14 05/28/21 documented as of this encounter
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
--- OUTSIDE RECORDS SUMMARY | 2024-04-13 08:46 | XMS_ITS | Encounter Summary ---
Author Organization [facility] Address [address] [place] [address] Care Team Providers Care Manager Meat Name Role Phone Cassidy Pablo MD Primary Care Provider [phone] [phone] Reason for Visit * Reason Comments New Patient Visit family hx of prostat e cancer Encounter Details Date Type Department Care Team (Late st Contact Info) Description 11/10/2017 16:00 EDT Office Visit [facility] Urology - [facility] [address] [place], [place] [address] Scar Osorio MD [address] [facility], [address] [place] [address] Elevated PSA (Primary Dx); Lower urinary tract symptoms (LUTS) Social History Tobacco Use Types Packs/Day Years [...] as of this encounter Progress Notes * Michael Lal MD - 11/10/2017 1600 EDT History of Present Illness: Talia is a 62 yo man who I am seeing today in consultation for an elevated PSA to 6.71 on September 19, 2017. He states that this was his first PSA check. He admits to daytime frequency. He admits to nocturia, x2 nightly. He has rare urgency. He drinks 5 cups of coffee per day, and also drinks water frequently throughout the day. He has a decent stream, and does not start and stop. He denies hesitancy. Occasionally, in the mornings, he feels like he doesn't completely empty. He has a history of recurrent prostatitis, about 30 years ago. He denies recent UTIs. He denies GH. He is okay with voiding for now and is not interested in medical intervention. Past Medical History: He denies. Medications: He admits to sudafed. 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 Social History: He lives in [place], [place]. He is not . He has 2 children. He works as a patricio. He denies smoking tobacco and alcohol intake. Family History: He admits that his paternal grandfather had either testicular cancer or prostate cancer, and he believes that it was testicular cancer. No family history of prostate cancer otherwise. ROS: Pertinent items in HPI. Exam: Gen: Alert, oriented, cooperative, NAD Lungs: Nonlabored respirations Abd: Soft ALIN: Firm, symmetric, and smooth prostate. Benign exam. No nodules palpated. Ext: WWP PSA: 6.71, September 19, 2017 Assessment: Talia is a 62 yo man who presents with an elevated PSA and LUTS. He had a normal ALIN. Plan: - Repeat PSA in 3 months - Follow up in clinic in 3 months documented in this encounter Plan of Treatment Upcoming Encounters Date Type Department Care Team (Late st Contact Info) Description 04/22/2024 8:10 EDT Appointment [facility] Endoscopy - [address] [phone] Zak Solorzano MD [address] [facility], [address] [place] [phone] documented as of this encounter Visit Diagnoses Diagnosis Elevated PSA- Primary Elevated prostate specific antigen (PSA) Lower urinary tract symptoms (LUTS) Other symptoms involving urinary system documented in this encounter Historical Medications * This list may reflect changes made after this encounter. Medication Sig Dispensed Refills Start Date End Date sildenafil citrate (VIAGRA ORAL) Take by mouth as needed. LORAZEPAM ORAL Take by mouth. 06/04/2018 pseudoephedrine HCl (SUDAFED ORAL) Take by mouth. 07/10/2021 added in this encounter Care Teams Manager Meat Relationship Specialty Start Date End Date Cassidy Pablo MD 617 [facility] [address] [place] [phone] PCP - General 12/21/14 05/28/21 documented as of this encounter
--- OUTSIDE RECORDS SUMMARY | 2024-04-13 08:46 | XMS_ITS | Encounter Summary ---
Author Organization [facility] Address [address] [place] [address] Care Team Providers Care Self Propelled Hot Mix Roller Operator Name Role Phone Cassidy Pablo MD Primary Care Provider [phone] [phone] Encounter Details Date Type Department Care Team (Late st Contact Info) Description 07/16/2018 Orders Only [facility] Gastroenterology - [address] [phone] Jessika Latham MD [address] [place] [address], [address] [place] [address] Personal history of colonic polyps (Primary Dx) Social History Tobacco Use Types [...] Dispensed Refills Start Date End Da te polyethylene glycol (GOLYTELY) 236-22.74-6.74 -5.86 gram suspensionIndications: Personal history of colonic polyps Follow instructions on 'colonoscopy preparation instructions' sheet. 1 Bottle 07/16/2018 07/10/2021 documented in this encounter Plan of Treatment Upcoming Encounters Date Type Department Care Team (Late st Contact Info) Description 04/22/2024 8:10 EDT Appointment [facility] Endoscopy - [address] [address] Zak Solorzano MD 111 [facility], [address] [place] [phone] documented as of this encounter Visit Diagnoses Diagnosis Personal history of colonic polyps- Primary documented in this encounter Care Teams Self Propelled Hot Mix Roller Operator Relationship Specialty Start Date End Date Cassidy Pablo MD 617 [facility] [address] [place] [phone] PCP - General 12/21/14 05/28/21 documented as of this encounter
--- OUTSIDE RECORDS SUMMARY | 2024-04-13 08:46 | XMS_ITS | Encounter Summary ---
Author Organization [facility] Address [address] [place] [address] Care Team Providers Care Print Finisher Name Role Phone Cassidy Pablo MD Primary Care Provider + -[phone] Viola Dave MD Primary Care Provider Unknown, Provider Primary Care Provider [phone] Encounter Details Date Type Department Care Team (Late st Contact Info) Description 12/25/2019 Lab Requisition [facility] Pathology & Laboratory Medicine - [facility] [address] [place], [place] [address] Outr Resulting Lab, Provider Social History Tobacco [...] Contact Info) Description 04/22/2024 8:10 EDT Appointment [facility] Endoscopy - [facility] [address] [place] [address] Zak Solorzano MD 111 [facility], [facility], [address] [place] [phone] documented as of this encounter Procedures Procedure Name Priority Date/Time Associated Diagnosis Comments ZZCOVID-19 TEST [facility] PCR Today 12/25/2019 14:30 EDT COVID-19 TESTING Routine 12/25/2019 14:3 0 EDT documented in this encounter Results * COVID-19 TEST [facility] PCR (12/25/2019 14:30 EDT) Swab ENTIRE NASOPHARYNX / Unknown 12/25/2019 14:30 EDT 12/25/2019 23:21 EDT Provider Outr Resulting Lab MICROBIOLOGY - GENERAL ORDERABLES [facility] [address] [place] [address] * COVID-19 TESTING (12/25/2019 14:30 EDT) COVID-19 rt-PCR Result Negative Negative 12/26/2019 13:44 EDT [facility] Comment: This test has not been FDA cleared or approved. This test has been authorized by FDA under an EUA for use by authorized laboratories. This test has been authorized only for detection of nucleic acid from 2019-nCoV, not for any other viruses or pathogens. This test is only authorized for the duration of the declaration that circumstances exist justifying the authorization of emergency use of in vitro diagnostic tests for detection and/or diagnosis of 2019-nCoV under section 564(b)(1) of Act, 21 U.S.C ?? 360bbb-3(b) (1), unless the authorization is terminated or revoked sooner. Negative results do not preclude 2019-nCoV infection and should not be used as the sole basis for treatment or other patient management decisions. Negative results must be combined with clinical observations, patient history, and epidemiological information. Performed on the Plair Rodessa Fusion instrument Performing Lab Rodessa [facility] 12/26/2019 13:44 EDT [facility] Swab 12/25/2019 14:3 0 EDT 12/25/2019 23:21 EDT Provider Outr Resulting Lab MICROBIOLOGY - GENERAL ORDERABLES [facility] [address] [place] [address] documented in this encounter Visit Diagnoses Not on filedocumented in this encounter Care Teams Print Finisher Relationship Specialty Start Date End Date Cassidy Pablo MD 617 [facility] [address] [place] [phone] PCP - General 12/21/14 05/28/21 Viola Dave MD [address] [place] [phone] PCP - General 05/29/21 02/26/23 Unknown, MD Nghia PCP - General 02/27/23 documented as of this encounter
--- OUTSIDE RECORDS SUMMARY | 2024-04-13 08:46 | XMS_ITS | Encounter Summary ---
Author Organization [facility] Address [address] [place] [address] Care Team Providers Care Pbx Wire Chief Name Role Phone Cassidy Pablo MD Primary Care Provider [phone] Encounter Details Date Type Department Care Team (Late st Contact Info) Description 08/23/2019 Orders Only [facility] Urology - [address] [phone] Scar Osorio MD [address] [place] [address], [address] [place] [address] Abnormal PSA (Primary Dx) Social [...] Description 04/22/2024 8:10 EDT Appointment [facility] Endoscopy - [facility] [address] [place], [place] [phone] Zak Solorzano MD 111 [facility], [facility], [address] [place] [address] documented as of this encounter Results * (ABNORMAL) PSA TOTAL, DIAGNOSTIC (08/27/2019 12:20 EST) PSA 4.9(H) 0.0 - 4.5 ng/mL 08/27/2019 14:38 EST [facility] Blood VENOUS BLOOD / Unknown Venipuncture / Unknown 08/27/2019 12:20 EST 08/27/2019 12:30 EST Narrative [facility] - 08/27/2019 14:38 EST NOTE: Serum PSA concentration should not be interpreted as absolute evidence for the presence or absence of malignant disease. Assayed on Siemens ADVIA Centaur XPT using chemiluminescent technology.??Values obtained by using different assay methods cannot be used interchangeably. Scar Osorio MD CHEMISTRY & BLOOD GA S ORDERABLES [facility] [address] [place] [address] documented in this encounter Visit Diagnoses Diagnosis Abnormal PSA- Primary Elevated prostate specific antigen (PSA) documented in this encounter Care Teams Pbx Wire Chief Relationship Specialty Start Date End Date Cassidy Pablo MD [address] [place] [address] [address] [place] [phone] PCP - General 12/21/14 05/28/21 documented as of this encounter
--- OUTSIDE RECORDS SUMMARY | 2024-04-13 08:46 | XMS_ITS | Encounter Summary ---
Author Organization [facility] Address [address] [place] [address] Care Team Providers Care Lpn Rn Name Role Phone Cassidy Pablo MD Primary Care Provider [phone] [phone] Encounter Details Date Type Department Care Team (Late st Contact Info) Description 09/07/2020 14:50 EST Immunization [facility] [address] [place] [address] Social History Tobacco Use Types Packs/Day Years [...] Description 04/22/2024 8:10 EDT Appointment [facility] Endoscopy - [facility] [address] [place], [place] [address] Zak Solorzano MD 111 [facility], [address] [place] [address] documented as of this encounter Visit Diagnoses Not on filedocumented in this encounter Orders Immunization/Injection Count Last Ordered Date First Ordered Date COVID-19 MRNA VACCINE (PFIZE R COVID-19) PF 0.3 ML IM (16 YRS+) 1 09/07/2020 documented in this encounter Care Teams Lpn Rn Relationship Specialty Start Date End Date Cassidy Pablo MD [address] [place] [address] [address] [place] [address] PCP - General 12/21/14 05/28/21 documented as of this encounter
[2024-04-13 17:25] LABS: Calculated LDL 178 mg/dL (<100); Cholesterol 239 mg/dL (<200); HDL Cholesterol 37 mg/dL (40-60); TSH (W/Ref FT4) 7.85 uIU/mL (0.36-3.74); Triglyceride 120 mg/dL (<150)
[2024-04-13 18:06] LABS: FREE T4 0.77 ng/dL (0.76-1.46)
[2024-04-13 23:21] LABS: PSA, Screening 6.7 ng/mL (<=4.5)
== END 2024-04-13 08:41 | disposition home or self-care (01) ==
LOC: NCHCN 08:40
PROVIDERS: Visit Provider Family Medicine
DX: E02 Subclinical iodine-deficiency hypothyroidism (principal); R97.20 Elevated prostate specific antigen [PSA]; Z12.5 Encounter for screening for malignant neoplasm of prostate
CPT/HCPCS: 80061; 84153; 84439; 84443

== ENCOUNTER 2024-10-12 15:46 | Outpatient (REF) | payer MEDICARE, SELFPAY ==
[2024-10-12 15:01] LABS: Calculated LDL 152 mg/dL (<100); Cholesterol 217 mg/dL (<200); HDL Cholesterol 35 mg/dL (>or=40); Triglyceride 154 mg/dL (<150)
== END 2024-10-12 15:47 | disposition home or self-care (01) ==
LOC: NCHCN 15:46
PROVIDERS: PCP Family Medicine; Visit Provider Family Medicine
DX: E78.5 Hyperlipidemia, unspecified (principal)
CPT/HCPCS: 80061

== ENCOUNTER 2025-02-09 07:37 | Outpatient (REF) | payer MEDICARE, SELFPAY ==
[2025-02-09 15:47] LABS: ALT 25 U/L (16-63); AST 30 U/L (15-37); Albumin 3.8 g/dL (3.4-5.0); Alkaline Phosphatase 52 U/L (46-116); Anion Gap 9.3 mmol/L (3-11); BUN 16 mg/dL (7-18); Bilirubin, Total 0.5 mg/dL (0.2-1.0); CO2 25.7 mmol/L (21.0-32.0); Calcium 8.7 mg/dL (8.5-10.1); Calculated LDL 72 mg/dL (<100); Chloride 106 mmol/L (98-107); Cholesterol 124 mg/dL (<200); Estimated GFR 66.28 (mL/min/1.73m2); Glucose 95 mg/dL (74-106); HDL Cholesterol 35 mg/dL (>or=40); Potassium 4.3 mmol/L (3.5-5.1); Sodium 141 mmol/L (136-145); Total Protein 7.1 g/dL (6.4-8.2); Triglyceride 88 mg/dL (<150)
[2025-02-09 22:27] LABS: PSA, Diagnostic 6.8 ng/mL (<=4.5)
== END 2025-02-09 07:38 | disposition home or self-care (01) ==
LOC: NCHCN 07:37
PROVIDERS: PCP Family Medicine; Visit Provider Family Medicine
DX: E78.5 Hyperlipidemia, unspecified (principal); R97.20 Elevated prostate specific antigen [PSA]
CPT/HCPCS: 80053; 80061; 84153